=== PATIENT | male | born 1940 | race Caucasian/White ===

== ENCOUNTER → 2016-10-21 | Outpatient (CLI) | payer BC ==
[~2016-10-21] MED LIST: FINA5TAB PO; FISHOIL PO; LACTCHW3 PO; SULF800T23 PO; WARF5TAB90 PO
[2016-10-21 12:43] LABS: ESTIMATED AVERAGE GLUCOSE 111 mg/dl; HA1C FLAG Normal (Normal)
[2016-10-21 14:26] LABS: CHOLESTEROL/HDL RATIO 5.9
== END | disposition home or self-care (01) ==
LOC: C.LABPVFM 13:42
PROVIDERS: ATTEND Family Medicine
DX: E78.5 Hyperlipidemia, unspecified (principal); E78.1 Pure hyperglyceridemia; R73.01 Impaired fasting glucose; Z51.81 Encounter for therapeutic drug level monitoring; Z79.01 Long term (current) use of anticoagulants; Z86.718 Personal history of other venous thrombosis and embolism

== ENCOUNTER → 2016-11-11 | Outpatient (CLI) | payer BC ==
[2016-11-11 13:06] LABS: BLOOD UREA NITROGEN 17 mg/dl (7-18); GLUCOSE 128 mg/dl (70-99)
[2016-11-11 13:07] LABS: ALB/GLOB RATIO 1.1 (0.9-2); ALT/SGPT 39 U/L (12-78); AST/SGOT 27 U/L (15-37); BUN/CREATININE RATIO 16.6 (10-20); CALCIUM 9.3 mg/dl (8.5-10.1); CARBON DIOXIDE 28 mmol/L (21-32); CHLORIDE 106 mmol/L (98-107); MAGNESIUM 2.1 mg/dl (1.8-2.4); POTASSIUM 4.2 mmol/L (3.5-5.1); SODIUM 142 mmol/L (136-145)
[2016-11-11 13:08] LABS: ALKALINE PHOSPHATASE 57 U/L (45-117)
== END | disposition home or self-care (01) ==
LOC: C.LABPVFM 11:08
PROVIDERS: ATTEND Family Medicine
DX: R73.01 Impaired fasting glucose (principal); R25.2 Cramp and spasm; Z51.81 Encounter for therapeutic drug level monitoring; Z79.01 Long term (current) use of anticoagulants; Z86.718 Personal history of other venous thrombosis and embolism

== ENCOUNTER → 2017-04-29 | Outpatient (CLI) | payer BC ==
[2017-04-29 13:37] LABS: CHOLESTEROL/HDL RATIO 6.3
== END | disposition home or self-care (01) ==
LOC: C.LABPVFM 15:19
PROVIDERS: ATTEND Family Medicine
DX: E78.5 Hyperlipidemia, unspecified (principal); Z79.01 Long term (current) use of anticoagulants; R73.01 Impaired fasting glucose; R25.2 Cramp and spasm

== ENCOUNTER → 2017-08-18 | Outpatient (CLI) | payer BC | END | disposition home or self-care (01) | LOC: C.LABPVFM 11:36 | PROVIDERS: ATTEND Urology | DX: R97.20 Elevated prostate specific antigen [PSA] (principal) ==

== ENCOUNTER → 2017-09-29 | Outpatient (CLI) | payer BC | END | disposition home or self-care (01) | LOC: C.PATHSPEC 17:26 | PROVIDERS: ATTEND Physician Assistant | DX: L57.0 Actinic keratosis (principal) ==

== ENCOUNTER → 2017-10-27 | Outpatient (CLI) | payer BC ==
[2017-10-27 12:55] LABS: BLOOD UREA NITROGEN 22 mg/dl (7-18); CALCIUM 9.1 mg/dl (8.5-10.1); CARBON DIOXIDE 28 mmol/L (21-32); CHOLESTEROL 184 mg/dl (0-200); CREATININE 0.99 mg/dl (0.60-1.40); GLUCOSE 96 mg/dl (70-99); POTASSIUM 4.1 mmol/L (3.5-5.1); SODIUM 138 mmol/L (136-145)
[2017-10-27 12:58] LABS: LDL CHOLESTEROL CALCULATED 114 mg/dl
== END | disposition home or self-care (01) ==
LOC: C.LABPVFM 10:21
PROVIDERS: ATTEND Family Medicine
DX: E78.5 Hyperlipidemia, unspecified (principal); D12.6 Benign neoplasm of colon, unspecified; R25.2 Cramp and spasm; R73.01 Impaired fasting glucose

== ENCOUNTER → 2018-04-21 | Outpatient (CLI) | payer BC ==
[2018-04-20 13:43] LABS: ALBUMIN 3.6 gm/dl (3.4-5.0); ALKALINE PHOSPHATASE 71 U/L (45-117); ALT/SGPT 53 U/L (12-78); AST/SGOT 37 U/L (15-37); BLOOD UREA NITROGEN 17 mg/dl (7-18); CALCIUM 8.8 mg/dl (8.5-10.1); CARBON DIOXIDE 27 mmol/L (21-32); CHOLESTEROL 123 mg/dl (0-200); CREATININE 0.95 mg/dl (0.60-1.40); GLUCOSE 102 mg/dl (70-99); LDL CHOLESTEROL CALCULATED 57 mg/dl; POTASSIUM 4.4 mmol/L (3.5-5.1); SODIUM 139 mmol/L (136-145); TOTAL PROTEIN 7.6 gm/dl (6.4-8.2)
== END | disposition home or self-care (01) ==
LOC: C.LABPVFM 15:20
PROVIDERS: ATTEND Family Medicine
DX: Z51.81 Encounter for therapeutic drug level monitoring (principal); E78.6 Lipoprotein deficiency; I82.409 Acute embolism and thrombosis of unspecified deep veins of unspecified lower extremity; N40.1 Benign prostatic hyperplasia with lower urinary tract symptoms; Z85.828 Personal history of other malignant neoplasm of skin; Z79.01 Long term (current) use of anticoagulants

== ENCOUNTER 2020-09-05 12:26 | Observation (INO) ==
--- NOTE | 2020-09-05 13:04 | Emergency Department Note ---
Impression & Plan Chest pain, Abnormal ECG, correction current use of anticoagulant ED Provider Note NAME: HAIR MEAD AGE: 80 SEX: M : 1940 ARRIVES VIA: Ambulance INFORMANT: Patient ED PROVIDER(S): Marcial Martins DO CHIEF COMPLAINT: Chest pain HPI: Patient is an 80-year-old male who presents to the ER for chest pain. He has a history of blood clots on Coumadin. He presented to his PCPs office and had an EKG performed after he informed him that he had chest pain around 230 this morning. He described it as a heaviness/tightness in the middle of his chest. It lasted till about 730 to 8 AM. He had no shortness of breath or arm or jaw pain with it. He admits to a history of hyperlipidemia. He is a smoker. Denies any diabetes or any heart disease. No dysuria urgency or frequency. No other exacerbating or remitting factors. He has never had this pain before. They reviewed an EKG and sent him here for EKG changes with the chest pain. He was given aspirin prior to arrival. ROS: See above HPI for pertinent positives & negatives. A total of 10 systems reviewed and were otherwise negative. PAST MEDICAL HISTORY:See Below PAST SURGICAL HISTORY:See Below FAMILY HISTORY:See Below SOCIAL HISTORY:See Below HOME MEDICATIONS:See Below ALLERGIES:See Below VITALS:See Below PHYSICAL EXAMINATION: GENERAL: Sitting up in bed, alert, well appearing, well nourished, no distress, non-toxic EYE EXAM: normal conjunctiva. OROPHARYNX: no exudate, no erythema, lips, buccal mucosa, and tongue normal and mucous membranes are moist NECK: supple, no nuchal rigidity, no adenopathy, non-tender LUNGS: Clear to auscultation. Normal chest wall mechanics HEART: no murmurs, S1 normal and S2 normal ABDOMEN: abdomen soft, non-tender, normo-active bowel sounds, no masses, no rebound or guarding. UPPER EXTREMITIES: upper extremities are grossly normal. LOWER EXTREMITIES: No pitting edema. Calves are equal bilateral NEURO EXAM: Normal sensorium, cranial nerves II-XII grossly intact, normal speech, no gross weakness of arms, no gross weakness of legs. MEDICAL DECISION MAKING: Patient is an 80-year-old male who presents ER who had chest pain this morning and was following up with his PCP. They noticed changes on his EKG and sent him in for further evaluation. He has not had any pain since about 8 AM. IV was established blood work was obtained. Labs show no significant leukocytosis or anemia. INR was supratherapeutic at 3.4. BMP was unremarkable. LFTs and troponin were negative. T bili slightly elevated at 1.3. Lipase was unremarkable. Covid was negative. Chest x-ray was unremarkable. EKG did show new ST elevations in the inferior leads comparison to the old which had ST depressions. Old EKG was from 2009. Uncertain of the timeframe for which these occurred but with his symptoms and age I do feel it was prudent for further evaluation. He was given aspirin prior to arrival. Triage Nursing notes reviewed. Prior medical records reviewed Vital Signs: reviewed and remarkable for HTN Differential diagnosis: Differential diagnoses includes but is not limited to acute coronary syndrome, myocardial infarction, pericarditis, pulmonary embolus, aortic dissection, pneumonia, pneumothorax, musculoskeletal, shingles, esophageal. ER treatment provided: See below Diagnostics interpreted by me: ECG: Sinus rhythm rate [address] segment elevations in the inferior leads PVC present Nonspecific ST wave changes in the lateral leads When compared to EKG from [address] elevation is new Cardiac Monitoring: An order was placed for continuous cardiac monitoring. The monitor shows a rate of 84 with sinus rhythm. Laboratory studies: As stated above and show below. Imaging studies: Portable AP upright 1 view the chest shows no focal infiltrate or pneumothorax Consultation(s): Discussed with the hospitalist for further evaluation ED COURSE: Procedures: none Critical Care: None Past Med/Surg History Medical History Basal cell carcinoma Bladder stone Hypertension Pneumonia Surgical History S/P trigger finger release Family History Brother Prostate cancer Other Family history non-contributory Denies family history of Ovarian cancer Myocardial infarction Breast cancer Colorectal cancer Social History Smoking Status: Current every day smoker Hx Alcohol Use: No Hx Substance Use: No Preferred Language: Mongolian Hearing Ability: Normal marital status: Current Living Situation: Alone current occupational status: retired Feels Safe at Home: Yes caffeine: Yes Dental Care, Regularly: Yes Physical Activity Frequency: Does not Exercise Seatbelt Use: always Sunscreen Use: Yes Allergies Allergies Allergy/AdvReac Type Severity Reaction Status Date / Time No Known Drug Allergies Allergy Verified 09/05/20 14:15 Home Meds Home Medications Medication Instructions Recorded Confirmed omega 5-grh-atx-fish oil [Fish Oil] 2,000 mg PO QAM 12/21/18 09/05/20 finasteride 5 mg PO QAM 09/05/20 09/05/20 vamprfkg-laj-CY-lycopen-lutein 1 tab PO QAM 09/05/20 09/05/20 [Centrum Silver] warfarin 7.5 mg PO .SUMOWEFRSA@1730 09/05/20 09/05/20 warfarin 10 mg PO .TUTH@1730 09/05/20 09/05/20 Previous Rx's Medication Instructions Recorded gabapentin 100 mg capsule See Rx Instructions .ROUTE 01/04/20 .COMPLEX #180 capsule atorvastatin 10 mg tablet 10 mg PO HS #90 tab 07/11/20 Results & Data (ED) Vital Signs Vital Signs - 24 hr 09/05/20 12:33 09/05/20 15:32 Temperature 37.0 C Temperature Source Oral Pulse Rate 90 Pulse Rate [Apical] 84 Pulse Rhythm Regular Pulse Strength Normal Respiratory Rate 17 18 Respiratory Effort / Characteristics Non-Labored Respiratory Depth Normal Respiratory Pattern Regular Blood Pressure 157/89 H Blood Pressure [Left Arm] 140/72 Blood Pressure Mean 111 Blood Pressure Mean [Left Arm] 94 Blood Pressure Position Sitting Pulse Oximetry 94 95 Oxygen Delivery Method Room Air Room Air Sepsis Recent Fever Within 48 Hours No Sepsis New/Unexplained Change in Mental Status No Sepsis Action Taken by Nursing No Action Required Laboratory Data Result diagrams: 09/05/20 12:10 09/05/20 12:10 Lab Results 09/05/20 09/05/20 09/05/20 Range/Units 12:10 12:10 12:10 WBC 10.05 (4.8-10.8) K/uL RBC 5.11 (4.7-6.1) M/uL Hgb 16.7 (14.0-18.0) g/dL Hct 48.5 (42-52) % MCV 94.9 (80-100) fL MCH 32.7 (25-34) pg MCHC 34.4 (32-36) g/dL RDW Std Deviation 46.2 (36.4-46.3) fL RDW Coeff of Mu 13.3 (11.5-14.5) % Plt Count 204 (130-400) K/uL MPV 10.3 (7.4-10.4) fL Immature Gran % (Auto) 0.1 % Neut % (Auto) 73.2 % Lymph % (Auto) 13.9 % [place] % (Auto) 11.6 % Eos % (Auto) 0.9 % Baso % (Auto) 0.3 % Neut # (Auto) 7.35 H (1.4-6.5) K/uL Lymph # (Auto) 1.40 (1.2-3.4) K/uL [place] # (Auto) 1.17 H (0.11-0.59) K/uL Eos # (Auto) 0.09 (0-0.5) K/uL Baso # (Auto) 0.03 (0-0.2) K/uL Immature Gran # (Auto) 0.01 (0.00-0.02) K/uL PT 33.3 H (9.0-12.0) Seconds INR 3.4 H (0.9-1.1) APTT 42.2 H (21.0-31.0) Seconds PTT Ratio 1.5 Sodium 138 (136-145) mmol/L Potassium 4.1 (3.5-5.1) mmol/L Chloride 105 (98-107) mmol/L Carbon Dioxide 28 (21-32) mmol/L Anion Gap 4.0 (3-11) BUN 18 (7-18) mg/dl Creatinine 0.93 (0.6-1.4) mg/dl Est Cr Clr Drug Dosing 61.2 ml/min Est GFR ( Amer) 88.3 Est GFR (Non-Af Amer) 76.2 BUN/Creatinine Ratio 19.8 (10-20) Glucose 92 (70-99) mg/dl Calcium 9.7 (8.5-10.1) mg/dl Total Bilirubin 1.3 H (0.2-1) mg/dl AST 32 (15-37) U/L ALT 40 (12-78) U/L Alkaline Phosphatase 80 (45-117) U/L Troponin I < 0.015 (0-0.045) ng/ml Total Protein 7.8 (6.4-8.2) gm/dl Albumin 3.8 (3.4-5.0) gm/dl Globulin 4.0 (2.5-4.0) gm/dl Albumin/Globulin Ratio 0.9 (0.9-2) Lipase 94 (73-393) U/L SARS-CoV-2 Ag (Rapid) (Negative) 09/05/20 Range/Units 14:48 WBC (4.8-10.8) K/uL RBC (4.7-6.1) M/uL Hgb (14.0-18.0) g/dL Hct (42-52) % MCV (80-100) fL MCH (25-34) pg MCHC (32-36) g/dL RDW Std Deviation (36.4-46.3) fL RDW Coeff of Mu (11.5-14.5) % Plt Count (130-400) K/uL MPV (7.4-10.4) fL Immature Gran % (Auto) % Neut % (Auto) % Lymph % (Auto) % [place] % (Auto) % Eos % (Auto) % Baso % (Auto) % Neut # (Auto) (1.4-6.5) K/uL Lymph # (Auto) (1.2-3.4) K/uL [place] # (Auto) (0.11-0.59) K/uL Eos # (Auto) (0-0.5) K/uL Baso # (Auto) (0-0.2) K/uL Immature Gran # (Auto) (0.00-0.02) K/uL PT (9.0-12.0) Seconds INR (0.9-1.1) APTT (21.0-31.0) Seconds PTT Ratio Sodium (136-145) mmol/L Potassium (3.5-5.1) mmol/L Chloride (98-107) mmol/L Carbon Dioxide (21-32) mmol/L Anion Gap (3-11) BUN (7-18) mg/dl Creatinine (0.6-1.4) mg/dl Est Cr Clr Drug Dosing ml/min Est GFR ( Amer) Est GFR (Non-Af Amer) BUN/Creatinine Ratio (10-20) Glucose (70-99) mg/dl Calcium (8.5-10.1) mg/dl Total Bilirubin (0.2-1) mg/dl AST (15-37) U/L ALT (12-78) U/L Alkaline Phosphatase (45-117) U/L Troponin I (0-0.045) ng/ml Total Protein (6.4-8.2) gm/dl Albumin (3.4-5.0) gm/dl Globulin (2.5-4.0) gm/dl Albumin/Globulin Ratio (0.9-2) Lipase (73-393) U/L SARS-CoV-2 Ag (Rapid) Negative (Negative) Discharge Plan Visit Data Chief Complaint: Chest Pain ED Provider: Marcial Martins Discharge Problem: Chest pain, Abnormal ECG, correction current use of anticoagulant Patient Disposition: Admitted As Inpatient Discharge Instructions Interventions: ED Discharge Assessment Last Done: 09/05/20 16:32 Discharge Problem: Chest pain Qualifiers: Chest pain type: unspecified Qualified Code(s): R07.9 - Chest pain, unspecified
--- NOTE | 2020-09-05 13:08 | XRay Report ---
XR chest 1V portable CLINICAL HISTORY: Atypical chest pain COMPARISON STUDY: October 2019 FINDINGS: The heart is normal in size. There is no failure. There is no acute parenchymal consolidati on. There is a 9 mm right upper lung zone nodule versus rib summation. A short-term follow-up PA and lateral study is recommended. There is mild chronic blunting of the left lateral costophrenic angle IMPRESSION: 1. No evidence of acute parenchymal consolidation 2. 9 mm right upper lung zone nodule versus rib summation. A short-term follow-up PA and lateral stud y is recommended. ACT 112: Negative or not required by law. Electronically signed by: Yfn Lewis M.D. 09/05/2020 1:07 PM
[2020-09-05 13:17] LABS: Basophils # (auto) 0.03 K/uL (0-0.2); Basophils % (auto) 0.3 %; Eosinophils # (auto) 0.09 K/uL (0-0.5); Eosinophils % (auto) 0.9 %; Hematocrit (blood only) 48.5 % (42-52); Hemoglobin 16.7 g/dL (14.0-18.0); Immature Granulocytes # (auto) 0.01 K/uL (0.00-0.02); Immature Granulocytes % (auto) 0.1 %; Lymphocytes % (auto) 13.9 %; Mean Corpuscular Hemoglobin 32.7 pg (25-34); Mean Corpuscular Hgb Conc 34.4 g/dL (32-36); Mean Corpuscular Volume 94.9 fL (80-100); Mean Platelet Volume 10.3 fL (7.4-10.4); Monocytes # (auto) 1.17 K/uL (0.11-0.59); Monocytes % (auto) 11.6 %; Neutrophils # (auto) 7.35 K/uL (1.4-6.5); Neutrophils % (auto) 73.2 %; Platelet Count 204 K/uL (130-400); RDW Coefficient of Variation 13.3 % (11.5-14.5); RDW Standard Deviation 46.2 fL (36.4-46.3); Red Blood Count 5.11 M/uL (4.7-6.1); White Blood Count 10.05 K/uL (4.8-10.8)
[2020-09-05 13:25] LABS: Alanine Aminotransferase 40 U/L (12-78); Albumin Level 3.8 gm/dl (3.4-5.0); Aspartate Aminotransferase 32 U/L (15-37); BUN Creatinine Ratio 19.8 (10-20); Blood Urea Nitrogen 18 mg/dl (7-18); Calcium 9.7 mg/dl (8.5-10.1); Carbon Dioxide 28 mmol/L (21-32); Chloride 105 mmol/L (98-107); Creatinine Clr Calc Pharmacy 61.2 ml/min; Est GFR (African American) 88.3; Est GFR (Non-African American) 76.2; Glucose 92 mg/dl (70-99); Lipase 94 U/L (73-393); Potassium 4.1 mmol/L (3.5-5.1); Sodium 138 mmol/L (136-145)
[2020-09-05 13:30] LABS: Albumin Globulin Ratio 0.9 (0.9-2); Alkaline Phosphatase 80 U/L (45-117); Bilirubin,Total 1.3 mg/dl (0.2-1); Total Protein 7.8 gm/dl (6.4-8.2); Troponin I < 0.015 ng/ml (0-0.045)
[2020-09-05 13:40] LABS: INR 3.4 (0.9-1.1); Partial Thromboplastin Ratio 1.5; Partial Thromboplastin Time 42.2 Seconds (21.0-31.0); Prothrombin Time 33.3 Seconds (9.0-12.0)
--- NOTE | 2020-09-05 15:25 | History & Physical Report ---
Date of Service September 05, 2020 Assessment & Plan (1) Chest pain at rest: - Patient with chest pain at rest that is now resolved. EKG changes are more AR depression rather than ST elevation. This is possibly seen in pericarditis, though he does not have the clinical history for that. - Dobutamine stress in the AM. 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 Patient comes to the hospital today after being awoken at 0230 with chest pain that was located in the center of his chest and felt like a tightness. The pain decreased enough for him to go back to sleep and then woke him up again at 0530. The pain was again located in the center of his chest and described as a tightness. The pain was about a 4-5/10 and was not associated with any other symptoms. He took 2 Tums and the pain went away by 0730. The patient went to primary care at [facility] and for concern of [place] the patient was sent to [facility]. The patient remains pain free at the time of being evaluated in the EMD. In the EMD the patient had a CXR done (see results below), ECG x1, troponin x1 (<0.015), and COVID swab (negative). Pt has never experienced this before, denies ever needing to follow with cardiology previously. Allergies Allergy/AdvReac Type Severity Reaction Status Date / Time No Known Drug Allergies Allergy Verified 09/05/20 14:15 Home Medications Medication Instructions Recorded Confirmed Type omega 9-kfl-xny-fish oil [Fish Oil] 2,000 mg PO QAM 12/21/18 09/05/20 History gabapentin 100 mg capsule See Rx Instructions .ROUTE 01/04/20 09/05/20 Rx .COMPLEX #180 capsule atorvastatin 10 mg tablet 10 mg PO HS #90 tab 07/11/20 09/05/20 Rx finasteride 5 mg PO QAM 09/05/20 09/05/20 History dybmipiy-afo-EF-lycopen-lutein 1 tab PO QAM 09/05/20 09/05/20 History [Centrum Silver] warfarin 7.5 mg PO .SUMOWEFRSA@1730 09/05/20 09/05/20 History warfarin 10 mg PO .TUTH@1730 09/05/20 09/05/20 History Past Med/Surg History Medical History Basal cell carcinoma Bladder stone Hypertension Pneumonia Surgical History S/P trigger finger release Family History Brother Prostate cancer Other Family history non-contributory Denies family history of Ovarian cancer Myocardial infarction Breast cancer Colorectal cancer Social History Smoking Status: Current every day smoker Hx Alcohol Use: No Hx Substance Use: No Preferred Language: Zambian Hearing Ability: Normal marital status: Current Living Situation: Alone current occupational status: retired Feels Safe at Home: Yes caffeine: Yes Dental Care, Regularly: Yes Physical Activity Frequency: Does not Exercise Seatbelt Use: always Sunscreen Use: Yes Review of Systems Review of Systems: Constitutional: No fever, sweats or chills Eyes: + wears glasses, No diplopia, no worsening or blurred vision ENT: normal hearing, no trouble swallowing, no sore throat Respiratory: + smoker, cough, thick white sputum, no dyspnea at rest or on exertion Cardiovascular: + chest pain, tightness, no palpitations, leg swelling Abdomen: No pain, nausea, vomiting, diarrhea or constipation Musculoskeletal: No joint pain, calf pain, swelling Neurologic: No weakness, numbness/tingling, or balance problems Psychiatric: No anxiety or depression Skin: No rash or itch Physical Exam Physical Exam: General: awake, alert, no apparent distress Head: Normocephalic, atraumatic ENT: PERRL, EOMI, no pharyngeal exudate, mucous membranes moist Chest: On room air, decreased in bases with expiratory wheeze bilateral. Cardiac: S1/S2, regular rate and rhythm, no murmur, no JVD, normal peripheral pulses, good capillary refill Abdominal: NABS x 4 quadrants, soft, nondistended, nontender to palpation, no rebound or guarding Extremities: Normal inspection, no peripheral edema or erythema, calfs nontender to palpation Psych: Normal mood and affect Neuro: AAO x 3, strength intact bilaterally and rated 5/5, no motor deficits, speech is clear, no peripheral sensory deficits Results & Data Results & Data ([facility]) Vital Signs (Past 12 Hours) Vital Signs Temp Pulse Resp BP Pulse Ox 09/05/20 12:33 37.0 C 90 17 157/89 H 94 ECG: NSR with PVC, AR depressions diffusely. CXR: FINDINGS: The heart is normal in size. There is no failure. There is no acute parenchymal consolidation. There is a 9 mm right upper lung zone nodule versus rib summation. A short-term follow-up PA and lateral study is recommended. There is mild chronic blunting of the left lateral costophrenic angle IMPRESSION: 1. No evidence of acute parenchymal consolidation 2. 9 mm right upper lung zone nodule versus rib summation. A short-term follow- up PA and lateral study is recommended. Code Status & VTE Plan VTE Prophylaxis Plan VTE Prophylaxis will be ordered: Yes Supervising Physician Co-Signing Physician Notes I supervised Demi Post PA-C on this patient's care. I examined the patient today independently of her. I discussed the plan of care with her with the plan being as written in her note except for any following changes/exceptions: None. PG Care Time/CCT Total # of Minutes Spent Total Time Spent with Patient: Total time spent is greater than 50% in coordination of care (as documented) at patient's floor/unit and/or counseling patient: Coding Level of Care Code 56805 OBS Care - Level 3 Diagnoses Chest pain at rest R07.9 BPH w/o urinary obs/LUTS N40.0 Bilateral leg cramps R25.2 Hyperlipidemia E78.5 DVT (deep venous thrombosis) I82.409
[2020-09-05] MEDS ORDERED: ONDANSETRON INJ 2 MG/ML 2 ML VIAL IV PRN (16:53)
[2020-09-05] MEDS ORDERED: ACETAMINOPHEN 325 MG TAB PO PRN (16:53)
[2020-09-05] MEDS ORDERED: ATORVASTATIN 10 MG TAB PO SCH (21:00)
[2020-09-05] MEDS ORDERED: GABAPENTIN 100 MG CAP PO SCH (21:00)
[2020-09-05 23:25] VITALS: O2SAT 92
[2020-09-06 04:40] LABS: Hematocrit (blood only) 43.5 % (42-52); Hemoglobin 15.1 g/dL (14.0-18.0); Mean Corpuscular Hemoglobin 32.6 pg (25-34); Mean Corpuscular Hgb Conc 34.7 g/dL (32-36); Mean Platelet Volume 9.7 fL (7.4-10.4); Platelet Count 178 K/uL (130-400); RDW Coefficient of Variation 13.3 % (11.5-14.5); RDW Standard Deviation 45.4 fL (36.4-46.3); Red Blood Count 4.63 M/uL (4.7-6.1); White Blood Count 5.19 K/uL (4.8-10.8)
[2020-09-06 04:59] LABS: Alanine Aminotransferase 31 U/L (12-78); Aspartate Aminotransferase 24 U/L (15-37); BUN Creatinine Ratio 18.4 (10-20); Blood Urea Nitrogen 14 mg/dl (7-18); Calcium 8.7 mg/dl (8.5-10.1); Carbon Dioxide 29 mmol/L (21-32); Chloride 107 mmol/L (98-107); Creatinine Clr Calc Pharmacy 75.4 ml/min; Est GFR (African American) 97.4; Est GFR (Non-African American) 84.1; Glucose 104 mg/dl (70-99); Magnesium 2.1 mg/dl (1.8-2.4); Potassium 3.9 mmol/L (3.5-5.1); Sodium 139 mmol/L (136-145)
[2020-09-06 05:03] LABS: Albumin Globulin Ratio 0.8 (0.9-2); Alkaline Phosphatase 68 U/L (45-117); Bilirubin,Total 1.2 mg/dl (0.2-1); Globulin 3.6 gm/dl (2.5-4.0); Total Protein 6.6 gm/dl (6.4-8.2); Troponin I < 0.015 ng/ml (0-0.045)
--- NOTE | 2020-09-06 05:54 | Electrocardiogram Report ---
Test Reason : Blood Pressure : / mmHG Vent. Rate : 088 BPM Atrial Rate : 088 BPM P-R Int : 154 ms QRS Dur : 082 ms QT Int : 332 ms P-R-T Axes : 080 056 064 degrees QTc Int : 401 ms Sinus rhythm with occasional Premature ventricular complexes Otherwise normal ECG When compared with ECG of 05-MAY-2012 00:26, Premature ventricular complexes are now Present Confirmed by Van Sen ([id number]) on 09/06/2020 5:54:01 AM Referred By: Confirmed By:Van Sen
[2020-09-06] MEDS ORDERED: METOPROLOL TARTRATE 1 MG/ML VIAL IV ONE (08:29)
[2020-09-06] MEDS ORDERED: ATROPINE SULFATE 0.1 MG/ML 10ML SYR IV ONE (08:29)
[2020-09-06] MEDS ORDERED: DOBUTamine HCL 12.5 MG/ML 20 ML VIAL IV ONE (08:29)
[2020-09-06] MEDS ORDERED: CEROVITE ADV FORMULA TAB PO SCH (09:00)
[2020-09-06] MEDS ORDERED: OMEGA-3 (PURIFIED FISH OIL) 1 GM CAP PO SCH (09:00)
[2020-09-06] MEDS ORDERED: ENOXAPARIN INJ 40 MG/0.4 ML SYR SQ SCH (09:00)
[2020-09-06] MEDS ORDERED: FINASTERIDE 5 MG TAB PO SCH (09:00)
--- NOTE | 2020-09-06 11:03 | XCELERA ---
[id number]
[2020-09-06 11:05] VITALS: BP 128/78; PULSE 79; TEMP 97.3
--- NOTE | 2020-09-06 21:17 | Discharge Summary ---
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 Patient comes to the hospital today after being awoken at 0230 with chest pain that was located in the center of his chest and felt like a tightness. The pain decreased enough for him to go back to sleep and then woke him up again at 0530. The pain was again located in the center of his chest and described as a tightness. The pain was about a 4-5/10 and was not associated with any other symptoms. He took 2 Tums and the pain went away by 0730. The patient went to primary care at [facility] and for concern of [place] the patient was sent to [facility]. The patient remains pain free at the time of being evaluated in the EMD. In the EMD the patient had a CXR done (see results below), ECG x1, troponin x1 (<0.015), and COVID swab (negative). Pt has never experienced this before, denies ever needing to follow with cardiology previously. Principal Diagnosis Chest pain - Not an NSTEMI, unlikely to be cardiac in nature Discharge Exam Constitutional WD/WN, vitals as above Eyes EOM intact bilaterally; no conjunctival abnormality ENMT external ear and nose normal, oropharynx normal Neck trachea midline, no thyromegaly normal visual inspection Respiratory normal respiratory effort, lungs clear to auscultation no respiratory distress Cardiovascular RRR, no murmur, no edema Gastrointestinal (Abdomen) Inspection/Auscultation: abdomen normal to inspection; abdomen not distended Musculoskeletal no cyanosis or clubbing, extremities motor strength 5/5 Skin no rashes, warm and dry Neurologic moves all extremities and awake Psychiatric Orientation: alert, oriented to person and cooperative Discharge Data Allergies Allergy/AdvReac Type Severity Reaction Status Date / Time No Known Drug Allergies Allergy Verified 09/05/20 14:15 Consultations 09/05/20 14:17 ED Decision to Admit Stat 09/05/20 16:53 Consult Case Management - Discharge Planning Routine Hospital Course (1) Chest pain at rest: - Patient with chest pain at rest that is now resolved. EKG changes are more TN depression rather than ST elevation. This is possibly seen in pericarditis, though he does not have the clinical history for that. - Dobutamine stress in the AM did not show any ischemia, but the patient did not reach his target heart rate. Technically non-diagnostic, but he had no chest pain with the exertion, so this is encouraging. - He also was found to have moderate-severe aortic stenosis. This was discussed with him and will require follow-up echo in 6-12 months. 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 = Follow up with outpatient INR provider Total Time Total Time Spent Total Time Spent (In Minutes): 35 Discharge Plan Discharge Items Patient Disposition: Home - Self-Care Reason For Visit: CHEST PAIN Discharge Diagnosis: Chest pain - Not a heart attack. Activity: Resume your previous activity Non-emergency contact: Primary Care Provider Call non-emergency contact if: your symptoms worsen Follow-up/Referrals: Supriya Diego CRNP [Primary Care Provider] - 09/11/20 11:00 am Diet: Heart Healthy Addtl Attending Provider Instructions: You were admitted to the hospital with chest pain. Fortunately, you did NOT have a heart attack because your cardiac enzymes were normal. We did a stress test which did not show any ischemia, but also didn't quite reach your target heart rate. If you have further chest pain, try to take Tums or Zantac to see if this may be heart burn related. Also, you have moderate aortic stenosis. This requires no treatment at present, but will require another ultrasound of your heart in 6 months to a year to monitor. If it gets severe, we worry about you passing out when you exert yourself. Your INR was a bit high here (3.4), so we held your warfarin. Please return to your normal dosing on discharge and follow up with your PCP or the provider who follows your warfarin. If you have chest pain that continues or is associated with dizziness, lightheadedness, shortness of breath, palpitations, or other concerning sympto ms, please call your doctor or seek immediate medical assistance. Pending Studies at Discharge: No Stand-Alone Forms: My [facility] [place], Smoking Cessation Medications and DC Order Prescriptions: Continued gabapentin 100 mg capsule See Rx Instructions .ROUTE .COMPLEX Qty: 180 RF: 1 atorvastatin 10 mg tablet 10 mg PO HS Qty: 90 RF: 3 omega 5-rqq-wen-fish oil [Fish Oil] 1,000 mg (120 mg-180 mg) Capsule 2,000 mg PO QAM RF: 0 warfarin 5 mg tablet 7.5 mg PO .SUMOWEFRSA@1730 RF: 0 warfarin 5 mg tablet 10 mg PO .TUTH@1730 RF: 0 finasteride 5 mg tablet 5 mg PO QAM RF: 0 Centrum Silver 0.4-300-250 mg-mcg-mcg tablet 1 tab PO QAM RF: 0 Discharge Orders: Discharge Order (Routine); Ordered 09/06/20 Ordered By: Gamal Call Admission Data Admit Date/Time: 09/05/20 15:36 Attending Provider: Gamla Call Admit Provider: Gamal Call Primary Care Provider: Supriya Diego Other Providers: Gamal Call Other Interventions: Discharge Summary Assessment (RN) Last Done: 09/06/20 11:03 Coding Level of Care Code 13502 OBS Care - Discharge Diagnoses Chest pain at rest R07.9 BPH w/o urinary obs/LUTS N40.0 Bilateral leg cramps R25.2 Hyperlipidemia E78.5 DVT (deep venous thrombosis) I82.409
== END 2020-09-06 12:03 | disposition home or self-care (01) ==
LOC: ED 12:26 → 2S 12:26

== ENCOUNTER 2023-11-18 07:26 | Inpatient (IN) ==
--- NOTE | 2023-11-18 07:59 | Emergency Department Note ---
Impression & Plan Fall, Sciatica, Lower back pain, Compression fracture of lumbar vertebra, Failure of outpatient treatment ED Provider Note NAME: HAIR MEAD AGE: 83 SEX: M : 1940 ARRIVES VIA: Ambulance INFORMANT: [Patient][ems, nursing] ED PROVIDER(S): [Anthony Boucher MD] CHIEF COMPLAINT: Fall, back pain HISTORY OF PRESENT ILLNESS: The patient is an 83-year-old male who has been to the ED a few times recently for lower back pain. The patient was seen 5 days ago and diagnosed with an L4 lumbar compression fracture. The patient was seen 2 days ago for increasing pain and discomfort. The patient has seen spinal surgery in the outpatient office, he was fitted for a brace but did not think it helped. He has reconsidered though and was to pick a brace up today. He has an MRI scheduled for tomorrow. The patient states that he had gone to the chiropractor after having some lower back pain. A day or so after the manipulation, his pain worsened and he felt pain down his right leg. The patient states that his legs are weak. Today, his knees gave out and he slowly went to the ground. He could not get up on his own. He did not suffer any injury. In route to the hospital, he received IV morphine and IV Zofran. His O2 saturation was noted to be low upon arrival and he was placed on some nasal cannula oxygen. The patient does note some shortness of breath at times with exertion. He does have medication for his lungs that he uses at home. He does not wear oxygen. There have been no urinary complaints. His legs are in general weak as noted above but he has not noticed any difficulty with urination or numbness in the groin. There has been no fever. PMHx/PSHx/Social Hx: See Below PHYSICAL EXAM: GENERAL: Patient is in no acute distress. HEENT: No acute trauma, normocephalic atraumatic, mucous membranes moist, no nasal congestion. NECK: No stridor, no adenopathy, no meningismus, trachea is midline. LUNGS: Diminished breath sounds bilaterally with some scattered wheezes, no respiratory distress. HEART: 2/6 systolic murmur, regular rate and rhythm. ABDOMEN: Soft, nontender, no peritonitis. EXTREMITIES: No cyanosis, full range of motion of all the joints without pain or difficulty. There is some mild bilateral pedal edema with some chronic skin change. NEUROLOGIC: Oriented x 3, does move all extremities without difficulty. SKIN: No jaundice, no diaphoresis. Back: Tender to the lower lumbar spine midline, no step-off. DIFFERENTIAL DIAGNOSIS: Sciatica, lumbar fracture, herniated lumbar disc, spinal stenosis, hematoma, UTI, failed outpatient management, among others. EMERGENCY DEPARTMENT PROCEDURES: MEDICAL DECISION MAKING: There is a moderate leukocytosis, this could be consistent with infection or just his pain/stress. There was a normal hemoglobin and platelet count. INR was quite high at 5.3, he is over anticoagulated. Sodium somewhat low at 132. No renal failure. Some very subtle liver enzyme elevations were noted. ECG shows a sinus rhythm, no ischemia. Cardiac enzyme testing x 1 is not consistent with acute cardiac injury. Urinalysis shows some potential dehydration, no infection. Chest x-ray shows COPD, no pneumonia. Brain CT showed no acute bleed or mass effect. On exam, the patient was quite uncomfortable complaining of lower back pain and pain radiating down his right leg. This is the patient's third visit in just under a week. He already has seen outpatient spinal surgery. The patient fell today because of weakness. He is not doing well outpatient and will require a hospital stay. He requires IV hydration, pain control, MR imaging and a spinal surgical consult. I spoke with the patient and family, the on-call hospitalist was consulted. Case management has been involved. Patient received IV morphine for pain. He was given IV Tylenol and IV Toradol. He was given IV Zofran. He received a 500 cc saline bolus. Patient was given a DuoNeb. Prior/Outside records/notes reviewed: Today's EMS notes describing his presentation and transport to this hospital. ECG per my interpretation: Indication was fall and weakness. The ECG shows a normal sinus rhythm with a rate of 87. 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 There is no acute ST elevation, no PVCs. There is some baseline artifact. The QTc is 440. Continuous Cardiac Monitoring per my interpretation: An order was placed for continuous cardiac monitoring. The monitor shows a rate of 87 with normal sinus rhythm. Imaging/x-ray results per my interpretation: Chest x-ray does not show pneumonia or CHF. Some COPD findings were seen. Chronic Medical/Social conditions affecting care: Advanced age, chronic anticoagulation. Care/Management discussed with: Case management, the on-call hospitalist. Level of care consideration(s): After review of the information above and other included data: --I believe the patient requires escalation of care to admission DISPOSITION: Admission with spinal consult. Past Med/Surg History Medical History BPH (benign prostatic hyperplasia) Aortic stenosis, moderate pt unaware History of kidney stones COPD (chronic obstructive pulmonary disease) pt unaware Gangrenous cholecystitis Cholelithiasis and cholecystitis without obstruction H/O deep venous thrombosis over 10 yrs ago> Warfarin > unknown cause Abdominal pain resolved per pt Chest pain at rest Pneumonia resolved Hypertension Bladder stone Surgical History History of colonoscopy History of tooth extraction S/P laparoscopic cholecystectomy 11/24/20 Dr. Carlos A Jacobo- Acute cholecystitis with gangrene gallbladder S/P trigger finger release bilat hands multiple times Basal cell carcinoma with removal from forehead/back Family History Brother Prostate cancer Other Family history non-contributory Denies family history of Ovarian cancer Myocardial infarction Breast cancer Colorectal cancer Social History Smoking Status: Current every day smoker Tobacco Type: Cigarettes Cigarettes Per Day: on occasion; Second Hand Exposure: No; Do You Dip or Chew Tobacco: No; Hx Alcohol Use: Yes Alcohol type: beer Alcohol Intake Frequency: Monthly or Less Hx Substance Use: No Preferred Language: Bulgarian Communication Ability: Effective Visual Impairment: No Limitations Hearing Ability: Normal Sugar Boiler Required: No Beliefs That Will Affect Care: None marital status: Current Living Situation: Alone current occupational status: retired How many Children do You have: 3 Other Information That Helps Us Care for You: No Feels Safe at Home: Yes Safety Concerns: Feels Safe At This Time Childhood Exposure to Second-Hand Smoke: Yes Diet: regular caffeine: Yes during the past year weight has: remained stable Dental Care, Regularly: Yes Physical Activity Frequency: Daily Seatbelt Use: always Sunscreen Use: Yes Do you think of yourself as: straight/heterosexual Gender Identity: Male Assistive Devices: Glasses and Walker Allergies Allergies Allergy/AdvReac Type Severity Reaction Status Date / Time No Known Allergies Allergy Verified 11/18/23 10:13 Home Meds Home Medications Medication Instructions Recorded Confirmed omega 2-yem-wqy-fish oil 1,000 mg 0 mg PO QAM 12/21/18 11/18/23 (120 mg-180 mg) capsule (Fish Oil) ilbtuuut-qnd-ahawv acid 0.4 0 tab PO QAM 09/05/20 11/18/23 mg-lycopene 300 mcg-lutein 250 mcg tablet (Centrum Silver) glucosamine 750 le-qcccbssnskh-tis 0 tab PO DAILY 10/24/23 11/18/23 no1 644 mg-C 30 mg-ana 1 mg tablet (Osteo Bi-Flex Triple Strength) tramadol 50 mg tablet 50 mg PO DIRECTED PRN Pain 11/16/23 11/18/23 Previous Rx's Medication Instructions Recorded atorvastatin 10 mg tablet 10 mg PO HS #90 tabs 12/23/22 warfarin 5 mg tablet See Rx Instructions .Route 12/23/22 .COMPLEX #180 tabs fluticasone fur. 100 mcg-umeclid 1 inh inhalation DAILY #60 ea 01/21/23 62.5 mcg-vilant 25 mcg inhalat.powder (Trelegy Ellipta) finasteride 5 mg tablet 5 mg PO DAILY #90 tabs 10/03/23 triamcinolone acetonide 0.5 % 1 applic topical DAILY #15 grams 10/24/23 topical cream Results & Data (ED) Vital Signs Vital Signs - 24 hr 11/18/23 07:36 11/18/23 08:04 11/18/23 09:07 Temperature 37.0 C Temperature Source Axillary Pulse Rate 87 91 H Pulse Rate [Right Finger] 75 Respiratory Rate 20 18 Respiratory Effort / Characteristics Non-Labored Spontaneous Respiratory Depth Normal Blood Pressure 135/64 Blood Pressure [Right Arm] 95/42 L Blood Pressure Mean 87 Blood Pressure Mean [Right Arm] 59 Pulse Oximetry 91 97 Oxygen Delivery Method Nasal Cannula Nasal Cannula Oxygen Flow Rate 3 3 Sepsis Recent Fever Within 48 Hours No Sepsis New/Unexplained Change in Mental Status N/A Sepsis Action Taken by Nursing No Action Required 11/18/23 10:30 Temperature Temperature Source Pulse Rate Pulse Rate [Right Finger] 67 Respiratory Rate 20 Respiratory Effort / Characteristics Respiratory Depth Blood Pressure Blood Pressure [Right Arm] 137/98 Blood Pressure Mean Blood Pressure Mean [Right Arm] 111 Pulse Oximetry 93 Oxygen Delivery Method Nasal Cannula Oxygen Flow Rate 3 Sepsis Recent Fever Within 48 Hours Sepsis New/Unexplained Change in Mental Status Sepsis Action Taken by Halfway Medications Current Medication List: was personally reviewed by me Laboratory Data Attestation: I reviewed the patient's lab results. 11/18/23 08:30 11/18/23 08:30 Lab Results 11/18/23 Range/Units 08:30 WBC 14.02 H (4.8-10.8) K/ul RBC 5.08 (4.70-6.10) M/uL Hgb 16.2 (14.0-18.0) g/dl Hct 46.0 (42.0-52.0) % MCV 90.6 (80.0-100.0) fL MCH 31.9 (25.0-34.0) pg MCHC 35.2 (32.0-36.0) g/dL RDW Std Deviation 44.2 (36.4-46.3) fL RDW Coeff of Mu 13.2 (11.5-14.5) % Plt Count 249 (130-400) K/uL MPV 9.4 (9.4-12.4) fL Immature Gran % (Auto) 0.6 % Neut % (Auto) 80.2 % Lymph % (Auto) 8.9 % Sabine % (Auto) 9.3 % Eos % (Auto) 0.7 % Baso % (Auto) 0.3 % Neut # (Auto) 11.25 H (1.40-6.50) K/uL Lymph # (Auto) 1.25 (1.20-3.40) K/uL Sabine # (Auto) 1.30 H (0.11-0.59) K/uL Eos # (Auto) 0.10 (0.00-0.50) K/uL Baso # (Auto) 0.04 (0.00-0.20) K/uL Immature Gran # (Auto) 0.08 (0.01-0.20) K/uL PT 51.8 H (9.0-12.0) Seconds INR 5.3 H (0.9-1.1) APTT 42 H (21-31) Seconds PTT Ratio 1.5 Sodium 132 L (136-145) mmol/L Potassium 3.9 (3.5-5.1) mmol/L Chloride 100 (98-107) mmol/L Carbon Dioxide 27 (21-32) mmol/L Anion Gap 5 (3-11) BUN 30 H (6-23) mg/dl Creatinine 0.68 (0.6-1.4) mg/dl Est Cr Clr Drug Dosing 88.2 ml/min Est GFR ( Amer) 100.9 ml/min Est GFR (Non-Af Amer) 87.1 ml/min BUN/Creatinine Ratio 44.1 H (10-20) Glucose 121 H (70-99(Fasting)) mg/dl Calcium 9.2 (8.6-10.3) mg/dl Magnesium 1.8 (1.7-2.4) mg/dl Total Bilirubin 1.1 H (0.2-1.0) mg/dl AST 55 H (13-39) U/L ALT 38 (7-52) U/L Alkaline Phosphatase 84 (34-104) U/L Troponin I High Sens 18.4 (0-20) pg/ml Total Protein 6.7 (6.0-8.3) gm/dl Albumin 3.8 (3.4-5.0) gm/dl Globulin 2.9 (2.5-4.0) gm/dl Albumin/Globulin Ratio 1.3 (0.9-2) Administered Medications Finasteride (Finasteride 5 Mg Tab) 5 mg PO DAILY [facility] Stop: 12/18/23 13:12 Last Admin: 11/18/23 15:02 Dose: Not Given Documented By: RUFINO Lidocaine (Lidocaine 5% 1 Patch) 1 patch TD QAM [facility] Stop: 12/18/23 11:29 Last Admin: 11/18/23 12:08 Dose: 1 patch Documented By: LYNDA Oxycodone HCl (Oxycodone Hcl Ir 5 Mg Tab (Immediate Release)) 10 mg PO Q6H PRN PRN Reason: Severe Pain (7,8,9,10) on NRS Stop: 12/02/23 13:12 Last Admin: 11/18/23 13:30 Dose: 10 mg Documented By: RUFINO Discontinued Medications Albuterol (Albut/Ipratrop 3mg/0.5mg Neb 3 Ml Vial) 3 ml NEB NOW STA; Protocol Stop: 11/18/23 07:52 Last Admin: 11/18/23 08:00 Dose: 3 ml Documented By: FRAN Gabapentin (Gabapentin 100 Mg Cap) 100 mg PO NOW STA Stop: 11/18/23 11:16 Last Admin: 11/18/23 12:23 Dose: 100 mg Documented By: LYNDA Acetaminophen (Ofirmev) 1,000 mg in 100 mls @ 400 mls/hr IV NOW STA Stop: 11/18/23 08:41 Last Infusion: 11/18/23 08:52 Dose: Infused Documented By: Admin: 11/18/23 08:30 Dose: 400 mls/hr Documented By: FRAN Sodium Chloride (Nss) 500 mls @ 999 mls/hr IV .Q31M ONE Stop: 11/18/23 09:42 Last Infusion: 11/18/23 10:25 Dose: Infused Documented By: Admin: 11/18/23 09:45 Dose: 999 mls/hr Documented By: FRAN Ketorolac Tromethamine (Ketorolac Tromethamine 15 Mg/Ml Vial) 10 mg IV NOW ONE Stop: 11/18/23 08:28 Last Admin: 11/18/23 08:54 Dose: 10 mg Documented By: FRAN Morphine Sulfate (Morphine Sulfate 10 Mg/Ml Carp/Vial) Confirm Administered Dose 10 mg .ROUTE .STK-MED ONE Stop: 11/18/23 07:33 Last Admin: 11/18/23 12:09 Dose: Not Given Documented By: LYNDA Morphine Sulfate (Morphine Sulfate 4 Mg/Ml 1 Ml Carp\Vial) 4 mg IV NOW STA Stop: 11/18/23 08:28 Last Admin: 11/18/23 08:54 Dose: 4 mg Documented By: FRAN Morphine Sulfate (Morphine Sulfate 2 Mg/Ml Carp) 2 mg IV NOW STA Stop: 11/18/23 11:13 Last Admin: 11/18/23 12:05 Dose: 2 mg Documented By: LYNDA Ondansetron HCl (Ondansetron Inj 2 Mg/Ml 2 Ml Vial) Confirm Administered Dose 4 mg .ROUTE .STK-MED ONE Stop: 11/18/23 07:32 Last Admin: 11/18/23 12:09 Dose: Not Given Documented By: LYNDA Imaging Data Radiologist's Impression: Head CT 11/18/23 07:51 CT OF THE HEAD WITHOUT CONTRAST CLINICAL HISTORY: fall, warfarin COMPARISON STUDY: No previous studies for comparison. CT DOSE: 625.8 mGy.cm TECHNIQUE: Helical axial images of the head were obtained without IV contrast. Automated exposure control was utilized for the study. A dose lowering technique was utilized adhering to the principles of ALARA. FINDINGS: No acute intracranial hemorrhage, midline shift or mass effect is present. The ventricular system is unremarkable. The basal cisterns are patent. No extra-axial collections are present. There are no findings to suggest acute dural sinus thrombosis or acute territorial infarct. White matter hypodensity suggests small vessel disease. There is no calvarial fracture. A small mucous retention cyst within the left maxillary sinus. IMPRESSION: 1. No acute intracranial findings. 2. No calvarial fracture. ACT 112: Negative or not required by law. Electronically signed by: Mariusz Araujo M.D. 11/18/2023 8:16 AM Chest X-Ray 11/18/23 08:00 XR chest 1V portable CLINICAL HISTORY: hypoxia TECHNIQUE: Single frontal radiograph of the chest was obtained. Comparison: Comparison is made to rib series 07/15/2023 FINDINGS: No lines and tubes are seen. Cardiomegaly is noted. The aortic arch is calcified. The lungs are clear. No evidence of pleural effusion or pneumothorax. IMPRESSION: No acute chest disease. Cardiomegaly is noted. ACT 112: Negative or not required by law. Electronically signed by: Vinay Branch M.D. 11/18/2023 9:39 AM Discharge Plan Visit Data Chief Complaint: Fall ED Provider: Anthony Boucher Discharge Problem: Fall, Sciatica, Lower back pain, Compression fracture of lumbar vertebra, Failure of outpatient treatment Patient Disposition: Admitted As Inpatient Condition: Fair Discharge Instructions Interventions: ED Discharge Assessment Last Done: 11/18/23 12:39 Discharge Problem: Fall Qualifiers: Encounter type: initial encounter Qualified Code(s): W19.XXXA - Unspecified fall, initial encounter Sciatica Qualifiers: Laterality: right Qualified Code(s): M54.31 - Sciatica, right side Lower back pain Qualifiers: Chronicity: acute Back pain laterality: midline Sciatica presence: with sciatica Sciatica laterality: sciatica of right side Qualified Code(s): M54.41 - Lumbago with sciatica, right side Compression fracture of lumbar vertebra Qualifiers: Encounter type: subsequent encounter Lumbar vertebra fracture level: L4 F racture healing: with delayed healing Qualified Code(s): S32.040G - Wedge compression fracture of fourth lumbar vertebra, subsequent encounter for fracture with delayed healing
[2023-11-18] MEDS: ALBUT/IPRATROP 3MG/0.5MG NEB 3 ML VIAL NEB STA (08:00)
--- NOTE | 2023-11-18 08:18 | CT Scan Report ---
CT OF THE HEAD WITHOUT CONTRAST CLINICAL HISTORY: fall, warfarin COMPARISON STUDY: No previous studies for comparison. CT DOSE: 625.8 mGy.cm TECHNIQUE: Helical axial images of the head were obtained without IV contrast. Automated exposure con trol was utilized for the study. A dose lowering technique was utilized adhering to the principles o f ALARA. FINDINGS: No acute intracranial hemorrhage, midline shift or mass effect is present. The ventricular system is unremarkable. The basal cisterns are patent. No extra-axial collections are present. There are no findings to suggest acute dural sinus thrombosis or acute territorial infarct. White matter hy podensity suggests small vessel disease. There is no calvarial fracture. A small mucous retention cys t within the left maxillary sinus. IMPRESSION: 1. No acute intracranial findings. 2. No calvarial fracture. ACT 112: Negative or not required by law. Electronically signed by: Mariusz Araujo M.D. 11/18/2023 8:16 AM
[2023-11-18] MEDS: ACETAMINOPHEN 1,000 MG/100 ML VIAL IV STA (08:30)
[2023-11-18] MEDS: MoRPHine SULFATE 4 MG/ML 1 ML CARP\\VIAL IV STA (08:54)
[2023-11-18] MEDS: KETOROLAC TROMETHAMINE 15 MG/ML VIAL IV ONE (08:54)
[2023-11-18 09:08] LABS: Basophils # (auto) 0.04 K/uL (0.00-0.20); Basophils % (auto) 0.3 %; Eosinophils % (auto) 0.7 %; Hemoglobin 16.2 g/dl (14.0-18.0); Immature Granulocytes # (auto) 0.08 K/uL (0.01-0.20); Immature Granulocytes % (auto) 0.6 %; Lymphocytes # (auto) 1.25 K/uL (1.20-3.40); Lymphocytes % (auto) 8.9 %; Mean Corpuscular Hemoglobin 31.9 pg (25.0-34.0); Mean Corpuscular Hgb Conc 35.2 g/dL (32.0-36.0); Mean Corpuscular Volume 90.6 fL (80.0-100.0); Mean Platelet Volume 9.4 fL (9.4-12.4); Monocytes % (auto) 9.3 %; Neutrophils # (auto) 11.25 K/uL (1.40-6.50); Neutrophils % (auto) 80.2 %; Platelet Count 249 K/uL (130-400); RDW Coefficient of Variation 13.2 % (11.5-14.5); RDW Standard Deviation 44.2 fL (36.4-46.3); Red Blood Count 5.08 M/uL (4.70-6.10); White Blood Count 14.02 K/ul (4.8-10.8)
[2023-11-18 09:15] LABS: Albumin Globulin Ratio 1.3 (0.9-2); Albumin Level 3.8 gm/dl (3.4-5.0); BUN Creatinine Ratio 44.1 (10-20); Bilirubin,Total 1.1 mg/dl (0.2-1.0); Calcium 9.2 mg/dl (8.6-10.3); Creatinine Clr Calc Pharmacy 88.2 ml/min; Est GFR (African American) 100.9 ml/min; Est GFR (Non-African American) 87.1 ml/min; Globulin 2.9 gm/dl (2.5-4.0); Magnesium 1.8 mg/dl (1.7-2.4); Potassium 3.9 mmol/L (3.5-5.1); Total Protein 6.7 gm/dl (6.0-8.3)
[2023-11-18 09:21] LABS: Troponin I High Sensitivity 18.4 pg/ml (0-20)
[2023-11-18 09:30] LABS: INR 5.3 (0.9-1.1); Partial Thromboplastin Ratio 1.5; Partial Thromboplastin Time 42 Seconds (21-31); Prothrombin Time 51.8 Seconds (9.0-12.0)
--- NOTE | 2023-11-18 09:40 | XRay Report ---
XR chest 1V portable CLINICAL HISTORY: hypoxia TECHNIQUE: Single frontal radiograph of the chest was obtained. Comparison: Comparison is made to rib series 07/15/2023 FINDINGS: No lines and tubes are seen. Cardiomegaly is noted. The aortic arch is calcified. The lungs are clear . No evidence of pleural effusion or pneumothorax. IMPRESSION: No acute chest disease. Cardiomegaly is noted. ACT 112: Negative or not required by law. Electronically signed by: Vinay Branch M.D. 11/18/2023 9:39 AM
[2023-11-18] MEDS: SODIUM CHLORIDE 0.9% 500 ML IV ONE (09:45)
--- NOTE | 2023-11-18 10:06 | History & Physical Report ---
Date of Service November 18, 2023 Assessment & Plan (1) Fall: Plan: Patient sustained a ground-level fall on 11/18; recurrent falls in the setting of recent back injury Patient reports his legs gave out on him while he was using his walker No head strike, LOC, dizziness/lightheadedness prior to fall, or tripping Patient was at [place] [facility] on 11/13 and was noted to have a mild acute L4 compression deformity; was following up with Dr. Carlson outpatient for a brace Mild leukocytosis at 14.[address] NAF CXR NAF UA ordered, pending Bilateral pelvic x-ray revealed no acute abnormalities MRI lumbar spine w/o contrast ordered, pending Orthotics consult for LSO brace Acetaminophen 1000 mg p.o. scheduled q8h for pain Morphine 2-4 mg q4h as needed for breakthrough pain (patient reports morphine IV has been more effective than p.o. oxycodone) Monitor for respiratory depression; supplemental oxygen as needed to maintain SpO2>94% Lidocaine patch application/removal daily Gabapentin 100mg p.o. TID Given radicular pain, consider adding on steroids, such as dexamethasone 10 mg daily, if patient is refractory to pain control above [facility] surgery consulted A.m. CBC, BMP, PT/INR (2) Closed compression fracture of L4 vertebra: Plan: Patient first noticed lower back/leg pain on Thursday 11/09 Chiropractor manipulation on Saturday 11/11 A/P CT on 11/13 noted mild acute L4 compression deformity (3) H/O deep venous thrombosis: Plan: On warfarin Supratherapeutic INR at 5.3 on arrival Caution use of Toradol/NSAIDs Hold warfarin for now, then consider restarting pending surgery eval Monitor daily PT/INR (4) COPD (chronic obstructive pulmonary disease): Plan: Continue home inhaler (5) Hyperlipidemia: Plan: Continue atorvastatin (6) BPH (benign prostatic hyperplasia): Plan: Continue finasteride (7) Aortic stenosis, severe: Plan: Chronic; noted Plan [facility] Regular diet VTE PPx: On warfarin History of Present Illness Chief Complaint: Recurrent falls, lumbar spine injury Primary Care Provider: ANNELISE Merrill Vikram is an 83-year-old male with PMH of COPD, aortic stenosis, BPH, hyperlipidemia, DVT, and vertigo. He presented via EMS for a ground-level fall the morning of 11/18. Patient reportedly went out for a smoke, and then he felt weak and his legs gave out on him. No LOC. No head strike. Patient did not feel dizzy or lightheaded before falling. He was using his walker at this time. Patient is on warfarin for history of DVTs. Patient reports he landed on all fours in order to catch himself. Of note, patient was diagnosed with a mild acute L4 compression deformity last on 11/13. He is unsure what caused this, but noted his back and leg started to bother him on Thursday 11/09, and then he went to the chiropractor for a manipulation on Saturday 11/11. Patient has now suffered 2 falls, with the first being on Tuesday 11/14 and the second being today on 11/18. Patient was set to receive a lumbar brace from Dr. Carlson's office, but did not have a chance to pick it up yet. He has been taking oxycodone as needed for pain at home, without relief. He was also scheduled for a spine MRI tomorrow on 11/19, but has been having too much pain and was unable to get up after falling today. He is having trouble sleeping, but notes that the most comfortable position is sitting down and bending forward. He rates his lower back pain 5/10, and characterizes it as a sharp intermittent pain that is worse with movement. The pain radiates down both legs, with it being worse going down his right hip and right leg. He denies urinary/bowel issues, saddle anesthesia, or numbness or tingling going down the legs. Patient is a current everyday tobacco cigarette/cigar smoker; 0.5 ppd. No supplemental at home oxygen use. No recent alcohol use. Last BM yesterday on 11/17. Patient did not take his morning medications; last took warfarin the evening of 11/17. Patient is mildly hypotensive at 95/42 at time admission; SpO2 97% on 3L NC. ED course: DuoNeb 3 mL Toradol 10 mg Morphine 4 mg IV NSS 500 mL IV Acetaminophen 1000 mg IV ROS: Patient endorses lower back pain radiating to his legs bilaterally with movement Patient denies fever, chills, night sweats, lightheadedness, dizziness prior to falls, headaches, changes in vision or hearing, chest pain, chest palpitations, pleuritic CP, SOB, abdominal pain, N/V/D, urinary symptoms, blood in the urine or stool, saddle anesthesia, or numbness/tingling in the arms or legs. Allergies Allergy/AdvReac Type Severity Reaction Status Date / Time No Known Allergies Allergy Verified 11/18/23 10:13 Home Medications Medication Instructions Recorded Confirmed Type omega 0-bva-jcz-fish oil 1,000 mg 0 mg PO QAM 12/21/18 11/18/23 History (120 mg-180 mg) capsule (Fish Oil) wlcfwcmd-dpp-lmegb acid 0.4 0 tab PO QAM 09/05/20 11/18/23 History mg-lycopene 300 mcg-lutein 250 mcg tablet (Centrum Silver) atorvastatin 10 mg tablet 10 mg PO HS #90 tabs 12/23/22 11/18/23 Rx warfarin 5 mg tablet See Rx Instructions .Route 12/23/22 11/18/23 Rx .COMPLEX #180 tabs fluticasone fur. 100 mcg-umeclid 1 inh inhalation DAILY #60 ea 01/21/23 11/18/23 Rx 62.5 mcg-vilant 25 mcg inhalat.powder (Trelegy Ellipta) finasteride 5 mg tablet 5 mg PO DAILY #90 tabs 10/03/23 11/18/23 Rx glucosamine 750 vi-lulhucdhlch-vxx 0 tab PO DAILY 10/24/23 11/18/23 History no1 644 mg-C 30 mg-ana 1 mg tablet (Osteo Bi-Flex Triple Strength) triamcinolone acetonide 0.5 % 1 applic topical DAILY #15 grams 10/24/23 11/18/23 Rx topical cream tramadol 50 mg tablet 50 mg PO DIRECTED PRN Pain 11/16/23 11/18/23 History acetaminophen 500 mg tablet 1,000 mg (2 x 500 mg) PO Q8H PRN 11/30/23 Rx (Tylenol Extra Strength) fever or pain #30 tabs diclofenac sodium 1 % topical gel 2 g EXT BID #100 grams 11/30/23 Rx (Voltaren Arthritis Pain) docusate sodium 100 mg capsule 100 mg PO BID PRN constipation #30 11/30/23 Rx caps famotidine 20 mg tablet 20 mg PO BID #60 tabs 11/30/23 Rx gabapentin 300 mg capsule 300 mg PO TID 30 days #90 caps 11/30/23 Rx lidocaine 5 % topical patch 1 patch transdermal QAM #15 ea 11/30/23 Rx oxycodone 5 mg tablet 5 - 10 mg (1 - 2 x 5 mg) PO Q6H 11/30/23 Rx PRN pain #14 tabs polyethylene glycol 3350 17 gram 17 g PO DAILY PRN constipation #14 11/30/23 Rx oral powder packet (Miralax) ea prednisone 20 mg tablet 20 mg PO DAILY #3 tabs 11/30/23 Rx sennosides 8.6 mg tablet (Senokot) 17.2 mg (2 x 8.6 mg) PO QAM #14 11/30/23 Rx tabs Past Med/Surg History Medical History (Updated 12/01/23 @ 09:30 by Marcial Ren PA-C) Lumbosacral radiculopathy Spinal stenosis of lumbar region Colon polyp Varicose vein of leg History of SCC (squamous cell carcinoma) of skin History of basal cell carcinoma Diverticulosis of colon BPH (benign prostatic hyperplasia) Aortic stenosis, moderate pt unaware History of kidney stones COPD (chronic obstructive pulmonary disease) pt unaware Gangrenous cholecystitis Cholelithiasis and cholecystitis without obstruction H/O deep venous thrombosis over 10 yrs ago> Warfarin > unknown cause Abdominal pain resolved per pt Chest pain at rest Pneumonia resolved Hypertension Bladder stone Surgical History History of colonoscopy History of tooth extraction S/P laparoscopic cholecystectomy 11/24/20 Dr. Carlos A Jacobo- Acute cholecystitis with gangrene gallbladder S/P trigger finger release bilat hands multiple times Basal cell carcinoma with removal from forehead/back Family History Brother Prostate cancer Other Family history non-contributory Denies family history of Ovarian cancer Myocardial infarction Breast cancer Colorectal cancer Social History Smoking Status: Current every day smoker Tobacco Type: Cigarettes Cigarettes Per Day: on occasion; Second Hand Exposure: No; Do You Dip or Chew Tobacco: No; Hx Alcohol Use: Yes Alcohol type: beer Alcohol Intake Frequency: Monthly or Less Hx Substance Use: No Preferred Language: Indonesian Communication Ability: Effective Visual Impairment: No Limitations Hearing Ability: Normal Product Grader Required: No Beliefs That Will Affect Care: None marital status: Current Living Situation: Alone current occupational status: retired How many Children do You have: 3 Other Information That Helps Us Care for You: No Feels Safe at Home: Yes Safety Concerns: Feels Safe At This Time Childhood Exposure to Second-Hand Smoke: Yes Diet: regular caffeine: Yes during the past year weight has: remained stable Dental Care, Regularly: Yes Physical Activity Frequency: Daily Seatbelt Use: always Sunscreen Use: Yes Do you think of yourself as: straight/heterosexual Gender Identity: Male Assistive Devices: Walker Review of Systems Review of Systems: See HPI above Physical Exam Physical Exam: General: Mild physical distress secondary to back pain; non-toxic appearing; pleasant affect; well-nourished; cooperative; SpO2 94% on 2L NC HEENT: normocephalic, atraumatic; no scleral icterus; PERRLA; moist mucus membrane; vision and hearing intact Neck: supple; no lymphadenopathy; trachea midline Skin: warm, dry without signs of tenting; no cyanosis; no rashes, bruising, lesions, or erythema noted CV: chest wall NTP; RRR; S1/S2 normal; 4/6 systolic ejection murmur auscultated at the second ICS MCL; pulses intact and symmetric at radial, DP, and PT Lungs: no acute respiratory distress; symmetrical chest wall expansion; diminished breath sounds across all lung davalos w/o adventitious sounds; no wheezing ABD: Soft, NTP; BS present; no rebound/guarding; no ascites; no distention Back: No signs of bruising or active bleeding; thoracic spine NTP; lumbar spine mildly TTP MSK: no tics or fasciculations; +1 pitting edema in LEs B/L, nonerythematous, brown/purple; shooting pain with all movement of legs and hips; patient is unable to lift legs supine at the hip off the bed due to pain; patient demonstrates ability to wiggle toes Neuro: A&Ox3; normal mood and affect; fluent speech; no focal deficits; sensation intact in the LEs b/l Results & Data Results & Data Vital Signs (Past 12 Hours) Vital Signs Temp Pulse Pulse Resp BP BP Pulse Ox 11/18/23 09:07 75 18 95/42 L 97 11/18/23 08:04 91 H 11/18/23 07:36 37.0 C 87 20 135/64 91 O2 Del Method O2 Flow Rate 11/18/23 09:07 Nasal Cannula 3 11/18/23 08:04 11/18/23 07:36 Nasal Cannula 3 Laboratory Results Abnormal lab results 11/18/23 Range/Units 08:30 WBC 14.02 H (4.8-10.8) K/ul Neut # (Auto) 11.25 H (1.40-6.50) K/uL [place] # (Auto) 1.30 H (0.11-0.59) K/uL PT 51.8 H (9.0-12.0) Seconds INR 5.3 H (0.9-1.1) APTT 42 H (21-31) Seconds Sodium 132 L (136-145) mmol/L BUN 30 H (6-23) mg/dl BUN/Creatinine Ratio 44.1 H (10-20) Glucose 121 H (70-99(Fasting)) mg/dl Total Bilirubin 1.1 H (0.2-1.0) mg/dl AST 55 H (13-39) U/L Diagnostic Findings Head CT 11/18/23 07:51 CT OF THE HEAD WITHOUT CONTRAST CLINICAL HISTORY: fall, warfarin COMPARISON STUDY: No previous studies for comparison. CT DOSE: 625.8 mGy.cm TECHNIQUE: Helical axial images of the head were obtained without IV contrast. Automated exposure control was utilized for the study. A dose lowering technique was utilized adhering to the principles of ALARA. FINDINGS: No acute intracranial hemorrhage, midline shift or mass effect is present. The ventricular system is unremarkable. The basal cisterns are patent. No extra-axial collections are present. There are no findings to suggest acute dural sinus thrombosis or acute territorial infarct. White matter hypodensity suggests small vessel disease. There is no calvarial fracture. A small mucous retention cyst within the left maxillary sinus. IMPRESSION: 1. No acute intracranial findings. 2. No calvarial fracture. ACT 112: Negative or not required by law. Electronically signed by: Mariusz Araujo M.D. 11/18/2023 8:16 AM Chest X-Ray 11/18/23 08:00 XR chest 1V portable CLINICAL HISTORY: hypoxia TECHNIQUE: Single frontal radiograph of the chest was obtained. Comparison: Comparison is made to rib series 07/15/2023 FINDINGS: No lines and tubes are seen. Cardiomegaly is noted. The aortic arch is calcified. The lungs are clear. No evidence of pleural effusion or pneumothorax. IMPRESSION: No acute chest disease. Cardiomegaly is noted. ACT 112: Negative or not required by law. Electronically signed by: Vinay Branch M.D. 11/18/2023 9:39 AM Code Status & VTE Plan Code Status DNR/DNI VTE Prophylaxis Plan VTE Prophylaxis will be ordered: Yes Supervising Physician Co-Signing Physician Notes I personally saw and examined the patient. I independently reviewed the labs, EKG, imaging, problem list, medication list, past medical history and family history. I verified all dougherty points and agree with Chris Zelaya PA-C with the following exceptions and/or additions: 83 year old male presents to the ER following a ground level fall. [place] weak and his legs gave out on him. Recent back pain starting 11/09 but worse following chiropractor on 11/11. No change in bowels/urine, he is unsteady on his feet since when his back pain flares up but no weakness or loss of sensation outside this time. O/E A&Ox3, HS RRR, MANDY 5/6 loudest LUSB, Chest CTAB, Abdo SNT, no b/l lower extremity weakness or loss of sensation, pain over central lumbar spine palpation A/P Fall - PT/OT Lumbar compression fracture with radicular pain - gabapentin 100mg PO TID, acetaminophen 1g PO TID, back brace, consult ortho spine, PT/OT PG Care Time/CCT Total # of Minutes Spent Total Time Spent with Patient: Total time spent is greater than 50% in coordination of care (as documented) at patient's floor/unit and/or counseling patient: Coding [place] [address] INT INP/OBS CARE 2/55MIN Patient Type Established Medical Decision Making Moderate Complexity Diagnoses Fall W19.XXXA Closed compression fracture of L4 vertebra S32.040A H/O deep venous thrombosis Z86.718 Chronic obstructive pulmonary disease, unspecified COPD type J44.9 COPD type: unspecified COPD Pure hypercholesterolemia E78.00 Hyperlipidemia type: pure hypercholesterolemia BPH (benign prostatic hyperplasia) N40.0 Aortic stenosis, severe I35.0 (4) COPD (chronic obstructive pulmonary disease) COPD type: unspecified COPD Qualified Code(s): J44.9 - Chronic obstructive pulmonary disease, unspecified (5) Hyperlipidemia Hyperlipidemia type: pure hypercholesterolemia Qualified Code(s): E78.00 - Pure hypercholesterolemia, unspecified
--- NOTE | 2023-11-18 10:43 | Electrocardiogram Report ---
Test Reason : Blood Pressure : / mmHG Vent. Rate : 087 BPM Atrial Rate : 087 BPM P-R Int : 134 ms QRS Dur : 076 ms QT Int : 366 ms P-R-T Axes : 077 092 012 degrees QTc Int : 440 ms Normal sinus rhythm Rightward axis Cannot rule out Septal infarct , age undetermined Abnormal ECG When compared with ECG of 21-NOV-2020 05:19, Septal infarct is now Present T wave amplitude has decreased in Anterior leads T wave amplitude has increased in Lateral leads Confirmed by Giovanny Castellanos ([id number]) on 11/18/2023 10:42:58 AM Referred By: Confirmed By:Giovanny Castellanos
[2023-11-18] MEDS ORDERED: NALOXONE HCL 0.4 MG/1 ML VIAL/CARP IV PRN (11:15)
[2023-11-18] MEDS: MoRPHine SULFATE 2 MG/ML CARP IV STA (12:05)
[2023-11-18] MEDS: LIDOCAINE 5% 1 PATCH TD SCH (12:08)
[2023-11-18] MEDS: ONDANSETRON INJ 2 MG/ML 2 ML VIAL ONE (12:09)
[2023-11-18] MEDS: MoRPHine SULFATE 10 MG/ML CARP/VIAL ONE (12:09)
[2023-11-18] MEDS: GABAPENTIN 100 MG CAP PO STA (12:23)
[2023-11-18 12:26] LABS: Appearance Urine Clear (Clear); Bacteria Urine Automated Negative (Negative); Blood Urine Negative (Negative); Color Urine Dark Yellow; Glucose Urine UA Negative (Negative); Ketones Urine 1+ (Negative); Leukocyte Esterase Urine Negative (Negative); Nitrite Urine Negative (Negative); Protein Urine Trace (Negative); RBC Urine Automated 0-4 /hpf (0-4); Specific Gravity Urine 1.033 (1.000-1.030); Urobilinogen Urine Negative (Negative); pH Urine 5.5 (4.5-7.5)
[2023-11-18 12:49] LABS: Bilirubin Urine 1+ (Negative)
--- NOTE | 2023-11-18 12:54 | XRay Report ---
XR hip GRAYSON 2v w pelvis CLINICAL HISTORY: B/l hip pain, fall TECHNIQUE: 2 views of the bilateral hips and single frontal view of the pelvis were obtained. Comparison: None available at the time of this dictation. FINDINGS: There is no evidence of an acute fracture. Degenerative changes are seen in the hip joint. Vascular c alcifications are noted. IMPRESSION: Degenerative changes without evidence of acute abnormality. ACT 112: Negative or not required by law. Electronically signed by: Vinay Branch M.D. 11/18/2023 12:53 PM
[2023-11-18] MEDS ORDERED: NON-FORMULARY MEDICATION (Fluticasone-Umeclidin-Vilanter [Trelegy Ellipta] 100-62.5-25 mcg INH SCH (13:13)
[2023-11-18] MEDS ORDERED: ONDANSETRON INJ 2 MG/ML 2 ML VIAL IV PRN (13:13)
[2023-11-18] MEDS ORDERED: ACETAMINOPHEN 325 MG TAB PO PRN (13:13)
[2023-11-18] MEDS ORDERED: oxyCODONE HCL IR 5 MG TAB (IMMEDIATE RELEASE) PO PRN (13:13)
[2023-11-18] MEDS: oxyCODONE HCL IR 5 MG TAB (IMMEDIATE RELEASE) PO PRN (13:30)
[2023-11-18] MEDS: FINASTERIDE 5 MG TAB PO SCH (15:02)
[2023-11-18] MEDS ORDERED: WARFARIN SOD 10 MG TAB PO SCH (16:00)
[2023-11-18] MEDS: ACETAMINOPHEN 500 MG TAB PO SCH (17:03)
[2023-11-18] MEDS: MoRPHine SULFATE 4 MG/ML 1 ML CARP\\VIAL IV PRN (17:50)
--- NOTE | 2023-11-18 19:36 | Magnetic Resonance Report ---
MRI OF THE LUMBAR SPINE WITHOUT IV CONTRAST CLINICAL HISTORY: Compression fracture. COMPARISON STUDY: Radiographs of the lumbar spine dated 08/27/2011. Abdominal CT dated 11/13/2023. TECHNIQUE: MRI of the lumbar spine is performed utilizing various T1 and T2-weighted sequences in the axial and sagittal planes. IV contrast was not administered for this examination. FINDINGS: Lumbar spine: A transitional lumbosacral segment will be labeled S1 for the purposes of this examinat ion. There is a mild aekvw-gi-ywlkuwml inferior endplate compression fracture of L4 with correspondin g marrow edema. No retropulsion of fragments is identified. There is no evidence of posterior element involvement. No additional acute fracture is identified. Vertebral body height is otherwise maintain ed throughout the lumbar spine. Alignment is preserved. There is mild hyperlordosis. Small anterior a nd lateral marginal osteophytes are seen throughout. The transverse and spinous processes appear inta ct. A hemangioma is noted in the body of L1. No destructive bony lesion is seen. Intervertebral discs: Disc desiccation and mild loss of height is seen throughout the lumbar spine. Spinal cord: The visualized spinal cord is normal in morphology and signal intensity. The conus medul abisai terminates at the level of L2. The nerve roots of the cauda equina are normal in morphology. L1-L2: Unremarkable. This level is only assessed on the sagittal sequences. L2-L3: There is broad-based posterior disc bulge, which abuts the transiting nerve roots. There is no significant acquired compromise of the central canal. Lateral disc bulge contributes to bilateral rivas barticular stenosis. In conjunction with facet arthropathy, there is mild bilateral neural foraminal stenosis. L3-L4: There is broad-based posterior disc bulge with annular fissure, which abuts the transiting ner ve roots. In conjunction with hypertrophy of the ligamentum flavum, there is ypxe-gd-csqljafp central canal stenosis at this level with a minimum AP diameter of 7 mm. Lateral disc bulges contribute to b ilateral subarticular stenosis, left greater than right. This may abut the exiting left L3 nerve root . In conjunction with facet arthropathy, there is mild left neural foraminal stenosis. L4-L5: There is mild posterior disc bulge. This abuts the transiting nerve roots. No significant acqu ired compromise of the central canal is seen. Lateral disc bulges contribute to bilateral subarticula r stenosis. This may abut the exiting bilateral L4 nerve roots. In conjunction with facet arthropathy , there is kwywckcu-bt-kdwjnf bilateral neural foraminal stenosis. L5-S1: There is minimal posterior disc bulge with annular fissure. No significant acquired compromise of the central canal is seen. Lateral disc bulge is seen bilaterally, right greater than left. This contributes to bilateral subarticular stenosis. This may impinge on the exiting bilateral L5 nerve ro ots. In conjunction with facet arthropathy, there is pkydkzkl-ih-xnlgmj right and mild left neural fo raminal stenosis. Sacrum: The visualized sacrum is normal in morphology and signal intensity. Soft tissues: The paraspinous soft tissues are normal as imaged. The retroperitoneal structures are g rossly unremarkable but incompletely evaluated. Bladder calculi are noted in the pelvis. There is div erticulosis of the sigmoid colon. IMPRESSION: 1. Mlnto-uy-zlyubpky inferior endplate compression fracture of L4 with mild loss of height. No retrop ulsed fragments are identified. 2. No additional acute fracture is seen. 3. Spondylotic change as above. See discussion for detailed level by level analysis. 4. Bladder calculi are noted. 5. Additional findings as above. Dictated: 11/18/2023 7:07 PM Transcribed: 11/18/2023 7:24 PM Shane [id number] ROBERT_Avril Electronically signed by: Anthony Beyer M.D. 11/18/2023 7:35 PM
[2023-11-18] MEDS: ATORVASTATIN 10 MG TAB PO SCH (20:36)
[2023-11-18] MEDS: GABAPENTIN 100 MG CAP PO SCH (20:57)
[2023-11-18] MEDS: SODIUM CHLORIDE 0.9% 1,000 ML IV SCH (22:25)
[2023-11-19] MEDS: MoRPHine SULFATE 2 MG/ML CARP IV PRN (03:43)
[2023-11-19] MEDS: FLUTICASONE FUROATE 100MCG 14 PUFFS/INHALER INH SCH (08:24)
[2023-11-19] MEDS: TRIAMCINOLONE ACET 0.5% CR 15 GM TUBE TOP SCH (08:26)
[2023-11-19] MEDS: UMECLIDINIUM/VILANTEROL 62.5/25MCG 7 PUFFS/INHALER INH SCH (08:27)
[2023-11-19 08:53] LABS: Basophils # (auto) 0.03 K/uL (0.00-0.20); Basophils % (auto) 0.3 %; Eosinophils # (auto) 0.07 K/uL (0.00-0.50); Eosinophils % (auto) 0.8 %; Hematocrit (blood only) 44.8 % (42.0-52.0); Hemoglobin 15.7 g/dl (14.0-18.0); Immature Granulocytes # (auto) 0.04 K/uL (0.01-0.20); Immature Granulocytes % (auto) 0.4 %; Lymphocytes # (auto) 1.15 K/uL (1.20-3.40); Lymphocytes % (auto) 12.6 %; Mean Corpuscular Volume 91.2 fL (80.0-100.0); Mean Platelet Volume 9.4 fL (9.4-12.4); Monocytes # (auto) 0.83 K/uL (0.11-0.59); Monocytes % (auto) 9.1 %; Neutrophils # (auto) 7.03 K/uL (1.40-6.50); Neutrophils % (auto) 76.8 %; Platelet Count 242 K/uL (130-400); RDW Coefficient of Variation 13.4 % (11.5-14.5); RDW Standard Deviation 45.2 fL (36.4-46.3); Red Blood Count 4.91 M/uL (4.70-6.10); White Blood Count 9.15 K/ul (4.8-10.8)
[2023-11-19 09:13] LABS: BUN Creatinine Ratio 40.3 (10-20); Calcium 8.5 mg/dl (8.6-10.3); Creatinine Clr Calc Pharmacy 94.7 ml/min; Est GFR (African American) 104.8 ml/min; Est GFR (Non-African American) 90.5 ml/min; Potassium 4.1 mmol/L (3.5-5.1)
[2023-11-19 09:17] LABS: INR 4.4 (0.9-1.1); Prothrombin Time 43.5 Seconds (9.0-12.0)
--- NOTE | 2023-11-19 09:35 | Orthopedic Consultation ---
Date of Service November 19, 2023 History of Present Illness Reason for Consultation: Low back pain, L4 compression fracture. Requesting Physician: . Attending Physician: Rodrick Lomeli MD 83-year-old male who has been to the ED recently for lower back pain. The patient was seen 5 days ago and diagnosed with an L4 lumbar compression fracture. The patient was seen 2 days ago for increasing pain and discomfort. The patient has seen spinal surgery in the outpatient office, he was fitted for a brace but did not think it helped. He has reconsidered though and was to pick a brace up today and has an MRI scheduled for tomorrow. He had gone to the chiropractor after having some lower back pain. A day or so after the manipulation, his pain worsened and he felt pain down his right left, his symptoms worsened around 4 days ago without any specific incident the patient states that his legs are weak secondary to low back pain. Today, his knees gave out and he slowly went to the ground. He could not get up on his own. He did not suffer any injury. In route to the hospital, he received IV morphine and IV Zofran. His O2 saturation was noted to be low upon arrival and he was placed on some nasal cannula oxygen. There have been no urinary complaints. His legs are in general weak as noted above but he has not noticed any difficulty with urination or numbness in the groin. There has been no fever. Exam reveals the patient to gait pain more in the lower lumbar region slightly tender to palpation. He did have some low back pain on range of motion of his lower extremities, but he had intact strength her EHL ankle plantar dorsiflexion knee flexion extension strength in hip flexion and extension. Negative straight leg raise, only low back pain noted. MRI OF THE LUMBAR SPINE WITHOUT IV CONTRAST 12/17/2023 CLINICAL HISTORY: Compression fracture. COMPARISON STUDY: Radiographs of the lumbar spine dated 08/27/2011. Abdominal CT dated 11/13/2023. TECHNIQUE: MRI of the lumbar spine is performed utilizing various T1 and T2- weighted sequences in the axial and sagittal planes. IV contrast was not administered for this examination. FINDINGS: Lumbar spine: A transitional lumbosacral segment will be labeled S1 for the purposes of this examination. There is a mild bnhay-vf-pcnzyjzg inferior endplate compression fracture of L4 with corresponding marrow edema. No retropulsion of fragments is identified. There is no evidence of posterior element involvement. No additional acute fracture is identified. Vertebral body height is otherwise maintained throughout the lumbar spine. Alignment is preserved. There is mild hyperlordosis. Small anterior and lateral marginal osteophytes are seen throughout. The transverse and spinous processes appear intact. A hemangioma is noted in the body of L1. No destructive bony lesion is seen. Intervertebral discs: Disc desiccation and mild loss of height is seen throughout the lumbar spine. Spinal cord: The visualized spinal cord is normal in morphology and signal intensity. The conus medullaris terminates at the level of L2. The nerve roots of the cauda equina are normal in morphology. L1-L2: Unremarkable. This level is only assessed on the sagittal sequences. L2-L3: There is broad-based posterior disc bulge, which abuts the transiting nerve roots. There is no significant acquired compromise of the central canal. Lateral disc bulge contributes to bilateral subarticular stenosis. In conjunction with facet arthropathy, there is mild bilateral neural foraminal stenosis. L3-L4: There is broad-based posterior disc bulge with annular fissure, which abuts the transiting nerve roots. In conjunction with hypertrophy of the ligamentum flavum, there is vpkn-zg-hffvwuut central canal stenosis at this level with a minimum AP diameter of 7 mm. Lateral disc bulges contribute to bilateral subarticular stenosis, left greater than right. This may abut the exiting left L3 nerve root. In conjunction with facet arthropathy, there is mild left neural foraminal stenosis. L4-L5: There is mild posterior disc bulge. This abuts the transiting nerve roots. No significant acquired compromise of the central canal is seen. Lateral disc bulges contribute to bilateral subarticular stenosis. This may abut the exiting bilateral L4 nerve roots. In conjunction with facet arthropathy, there is bodnqpoh-hw-vlpquv bilateral neural foraminal stenosis. L5-S1: There is minimal posterior disc bulge with annular fissure. No significant acquired compromise of the central canal is seen. Lateral disc bulge is seen bilaterally, right greater than left. This contributes to bilateral subarticular stenosis. This may impinge on the exiting bilateral L5 nerve roots. In conjunction with facet arthropathy, there is ghopfgqp-dr-dpiyoz right and mild left neural foraminal stenosis. Sacrum: The visualized sacrum is normal in morphology and signal intensity. Soft tissues: The paraspinous soft tissues are normal as imaged. The retroperitoneal structures are grossly unremarkable but incompletely evaluated. Bladder calculi are noted in the pelvis. There is diverticulosis of the sigmoid colon. IMPRESSION: 1. Yrkbc-pc-pbsminhg inferior endplate compression fracture of L4 with mild loss of height. No retropulsed fragments are identified. 2. No additional acute fracture is seen. 3. Spondylotic change as above. See discussion for detailed level by level analysis. 4. Bladder calculi are noted. 5. Additional findings as above. Review of the lumbar MRI as mentioned from November 18, this is my separate interpretation, this reveals a inferior endplate fracture at L4 but no critical areas of stenosis or foraminal regions beyond the L4-5 level only. Impression: L4 compression fracture inferior endplate, some limited moderate foraminal narrowing at the L4-5 level bilaterally but no significant central stenosis. Plan: Today I recommended the patient obtain a lumbosacral brace, and then ge ntle mobilization with physical therapy, appropriate pain medications. The patient was initially referred to Dr. Carlson's office, he can either follow-up with Dr. Carlson's office or my office outpatient when mobilized for fracture follow-up. Allergies Allergy/AdvReac Type Severity Reaction Status Date / Time No Known Allergies Allergy Verified 11/18/23 10:13 Home Medications Medication Instructions Recorded Confirmed Type omega 8-gmy-ffl-fish oil 1,000 mg 0 mg PO QAM 12/21/18 11/18/23 History (120 mg-180 mg) capsule (Fish Oil) kuodlfam-sqv-egxgz acid 0.4 0 tab PO QAM 09/05/20 11/18/23 History mg-lycopene 300 mcg-lutein 250 mcg tablet (Centrum Silver) atorvastatin 10 mg tablet 10 mg PO HS #90 tabs 12/23/22 11/18/23 Rx warfarin 5 mg tablet See Rx Instructions .Route 12/23/22 11/18/23 Rx .COMPLEX #180 tabs fluticasone fur. 100 mcg-umeclid 1 inh inhalation DAILY #60 ea 01/21/23 11/18/23 Rx 62.5 mcg-vilant 25 mcg inhalat.powder (Trelegy Ellipta) finasteride 5 mg tablet 5 mg PO DAILY #90 tabs 10/03/23 11/18/23 Rx glucosamine 750 nr-vhtbfbobjvk-yoh 0 tab PO DAILY 10/24/23 11/18/23 History no1 644 mg-C 30 mg-ana 1 mg tablet (Osteo Bi-Flex Triple Strength) triamcinolone acetonide 0.5 % 1 applic topical DAILY #15 grams 10/24/23 11/18/23 Rx topical cream tramadol 50 mg tablet 50 mg PO DIRECTED PRN Pain 11/16/23 11/18/23 History Past Med/Surg History Medical History BPH (benign prostatic hyperplasia) Aortic stenosis, moderate pt unaware History of kidney stones COPD (chronic obstructive pulmonary disease) pt unaware Gangrenous cholecystitis Cholelithiasis and cholecystitis without obstruction H/O deep venous thrombosis over 10 yrs ago> Warfarin > unknown cause Abdominal pain resolved per pt Chest pain at rest Pneumonia resolved Hypertension Bladder stone Surgical History History of colonoscopy History of tooth extraction S/P laparoscopic cholecystectomy 11/24/20 Dr. Carlos A Jacobo- Acute cholecystitis with gangrene gallbladder S/P trigger finger release bilat hands multiple times Basal cell carcinoma with removal from forehead/back Family History Brother Prostate cancer Other Family history non-contributory Denies family history of Ovarian cancer Myocardial infarction Breast cancer Colorectal cancer Social History Smoking Status: Current every day smoker Tobacco Type: Cigarettes Cigarettes Per Day: on occasion; Second Hand Exposure: No; Do You Dip or Chew Tobacco: No; Hx Alcohol Use: Yes Alcohol type: beer Alcohol Intake Frequency: Monthly or Less Hx Substance Use: No Preferred Language: Yi Communication Ability: Effective Visual Impairment: No Limitations Hearing Ability: Normal Client Resource Specialist Required: No Beliefs That Will Affect Care: None marital status: Current Living Situation: Alone current occupational status: retired How many Children do You have: 3 Other Information That Helps Us Care for You: No Feels Safe at Home: Yes Safety Concerns: Feels Safe At This Time Childhood Exposure to Second-Hand Smoke: Yes Diet: regular caffeine: Yes during the past year weight has: remained stable Dental Care, Regularly: Yes Physical Activity Frequency: Daily Seatbelt Use: always Sunscreen Use: Yes Do you think of yourself as: straight/heterosexual Gender Identity: Male Assistive Devices: Glasses and Walker Review of Systems All systems reviewed & are unremarkable except as noted in HPI & below. Physical Exam . Results & Data Results & Data Laboratory Results . Diagnostic Findings . PG Care Time/CCT Total # of Minutes Spent Total Time Spent with Patient: Total time spent is greater than 50% in coordination of care (as documented) at patient's floor/unit and/or counseling patient: Coding Level of Care Code 46077 IN/OBS CONSULT LVL 3,45M
[2023-11-19] MEDS ORDERED: POLYETHYLENE (MIRALAX) 17 GM PACK PO PRN (12:04)
--- NOTE | 2023-11-19 12:25 | Hospitalist Progress Note ---
Date of Service November 19, 2023 Assessment & Plan (1) Fall: Plan: Patient sustained a ground-level fall on 11/18; recurrent falls in the setting of recent back injury - No head strike, LOC, dizziness/lightheadedness prior to fall, or tripping - Has been seen in ED on 11/[address] Carlson --> recommended brace Head CT - no acute intracranial findings CXR - no acute findings Bilateral pelvic x-ray revealed no acute abnormalities Ortho spine consulted (Josh) - MRI - L4 Compression fracture, moderate foraminal but no significant central stenosis - Recommend lumbosacral brace - PT/OT Pain control - Tylenol 1000mg q8 - Lidocaine patch - Gabapentine 100mg TID - oxycodone 5-10mg q6h prn - IV morphine for breakthrough pain - could consider steroids if radicular pain does not improve Orthotics consult for LSO brace UA without signs of infection A.m. CBC, BMP, PT/INR (2) COPD (chronic obstructive pulmonary disease): Plan: Continue home inhaler PRN nebs - currently requiring oxygen, baseline is room air Patient reports productive cough is chronic, denies increase in sputum production Pro-Rex added to a.m. labs ? hypoxia related to narcotic use however positive wheezing on exam, DuoNeb given (3) Closed compression fracture of L4 vertebra: Plan: Patient first noticed lower back/leg pain on Thursday 11/09 Chiropractor manipulation on Saturday 11/11 A/P CT on 11/13 noted mild acute L4 compression deformity (4) H/O deep venous thrombosis: Plan: On warfarin, pt reports goal 2-3, managed by PCP. - patient reports normally well-controlled Supratherapeutic INR at 5.3 on arrival --> 4.4 today continue to hold warfarin Monitor daily PT/INR (5) Hyperlipidemia: Plan: Continue atorvastatin (6) BPH (benign prostatic hyperplasia): Plan: Continue finasteride (7) Aortic stenosis, severe: Plan: Chronic; noted Plan Disposition: continued inpatient stay VTE PPx: On warfarin (supratherapeutic) Admission and Anticipated Discharge Date Admission Date: November 18, 2023 Supervising Physician Co-Signing Physician Notes Attending Attestation - Chart reviewed, care plan d/w TANIKA Edmond. I agree w/ the dougherty components of her documentation. Rodrick Lomeli MD Subjective Patient resting in bed. Reports constant pain - in his back and does radiate down to the leg sometimes. Currently reports worst pain is behind is left knee. Wet cough - reports has had this for months, denies recent fevers of chills. hx of COPD. does report decreased appetite. Baseline does not require oxygen at home Review of Systems Review of Systems: All systems reviewed & are unremarkable except as noted in Subjective Physical Exam Physical Exam: General: sitting up in bed, NAD, VS as above Resp: normal respiratory effort, biliteral wheezing CV: RRR, no murmur, Abd: normal bowel sounds, non tender, no hepatosplenomegaly Extremities: Moves all extremities, no edema Neuro: A&O x3, Results & Data Results & Data Vital Signs (Past 12 Hours) Vital Signs Temp Pulse Resp BP Pulse Ox O2 Del Method 11/19/23 08:21 36.7 C 69 18 177/51 H 92 Room Air Laboratory Results CBC, chemistry and coagulation studies reviewed PG Care Time/CCT Total # of Minutes Spent Total Time Spent with Patient: Total time spent is greater than 50% in coordination of care (as documented) at patient's floor/unit and/or counseling patient: Coding Level of Care Code 00277 SUB INP/OBS CARE 3/50MIN Diagnoses Fall W19.XXXA Chronic obstructive pulmonary disease, unspecified COPD type J44.9 COPD type: unspecified COPD Closed compression fracture of L4 vertebra S32.040A H/O deep venous thrombosis Z86.718 Pure hypercholesterolemia E78.00 Hyperlipidemia type: pure hypercholesterolemia BPH (benign prostatic hyperplasia) N40.0 Aortic stenosis, severe I35.0 (2) COPD (chronic obstructive pulmonary disease) COPD type: unspecified COPD Qualified Code(s): J44.9 - Chronic obstructive pulmonary disease, unspecified (5) Hyperlipidemia Hyperlipidemia type: pure hypercholesterolemia Qualified Code(s): E78.00 - Pure hypercholesterolemia, unspecified
[2023-11-19] MEDS: ALBUT/IPRATROP 3MG/0.5MG NEB 3 ML VIAL NEB PRN (13:16)
[2023-11-19] MEDS ORDERED: WARFARIN SOD 7.5 MG TAB PO SCH (16:00)
[2023-11-19 18:57] LABS: Appearance Urine Clear (Clear); Bacteria Urine Automated Negative (Negative); Bilirubin Urine Negative (Negative); Blood Urine 3+ (Negative); Cast Urine Automated 0 /lpf (0-5); Color Urine Yellow; Glucose Urine UA Negative (Negative); Ketones Urine Negative (Negative); Leukocyte Esterase Urine Negative (Negative); Nitrite Urine Negative (Negative); Protein Urine Negative (Negative); RBC Urine Automated >30 /hpf (0-4); Specific Gravity Urine 1.021 (1.000-1.030); Urobilinogen Urine Negative (Negative); pH Urine 5.5 (4.5-7.5)
[2023-11-20] MEDS: oxyCODONE HCL IR 5 MG TAB (IMMEDIATE RELEASE) PO PRN (01:58)
[2023-11-20 08:57] LABS: Basophils # (auto) 0.05 K/uL (0.00-0.20); Basophils % (auto) 0.6 %; Eosinophils # (auto) 0.16 K/uL (0.00-0.50); Eosinophils % (auto) 1.8 %; Hematocrit (blood only) 48.5 % (42.0-52.0); Hemoglobin 16.7 g/dl (14.0-18.0); Immature Granulocytes # (auto) 0.04 K/uL (0.01-0.20); Immature Granulocytes % (auto) 0.5 %; Lymphocytes # (auto) 1.45 K/uL (1.20-3.40); Lymphocytes % (auto) 16.7 %; Mean Corpuscular Hemoglobin 31.9 pg (25.0-34.0); Mean Corpuscular Hgb Conc 34.4 g/dL (32.0-36.0); Mean Corpuscular Volume 92.6 fL (80.0-100.0); Mean Platelet Volume 9.4 fL (9.4-12.4); Monocytes % (auto) 9.2 %; Neutrophils # (auto) 6.19 K/uL (1.40-6.50); Neutrophils % (auto) 71.2 %; Platelet Count 277 K/uL (130-400); RDW Coefficient of Variation 13.5 % (11.5-14.5); RDW Standard Deviation 46.1 fL (36.4-46.3); Red Blood Count 5.24 M/uL (4.70-6.10); White Blood Count 8.69 K/ul (4.8-10.8)
[2023-11-20 09:18] LABS: BUN Creatinine Ratio 27.9 (10-20); Calcium 9.3 mg/dl (8.6-10.3); Creatinine Clr Calc Pharmacy 86.4 ml/min; Est GFR (African American) 100.9 ml/min; Est GFR (Non-African American) 87.1 ml/min; Potassium 4.6 mmol/L (3.5-5.1)
[2023-11-20 09:26] LABS: INR 2.5 (0.9-1.1); Prothrombin Time 25.7 Seconds (9.0-12.0)
[2023-11-20] MEDS: dexAMETHasone 4 MG in SYRINGE 0 ML IV SCH (11:00)
--- NOTE | 2023-11-20 13:25 | Hospitalist Progress Note ---
Date of Service November 20, 2023 Assessment & Plan (1) Fall: Plan: Patient sustained a ground-level fall on 11/18; recurrent falls in the setting of recent back injury - No head strike, LOC, dizziness/lightheadedness prior to fall, or tripping - Has been seen in ED on 11/[address] Carlson --> recommended brace Head CT - no acute intracranial findings CXR - no acute findings Bilateral pelvic x-ray revealed no acute abnormalities Ortho spine consulted (Josh) - MRI - L4 Compression fracture, moderate foraminal but no significant central stenosis - Recommend lumbosacral brace Pain control - Tylenol 1000mg q8 - Lidocaine patch - Gabapentine 100mg TID - oxycodone 5-10mg q6h prn - Dexamethasone started for COPD exacerbation but also back pain PT/OT --> recommending rehab, case management following Orthotics consult for LSO brace UA without signs of infection (2) COPD (chronic obstructive pulmonary disease): Plan: COPD exacerbation Continue home inhaler -Increased sputum production and wheezing suspect exacerbation -ProCal negative -Dexamethasone 4mg BID Now on room air (3) Closed compression fracture of L4 vertebra: Plan: Patient first noticed lower back/leg pain on Thursday 11/09 Chiropractor manipulation on Saturday 11/11 A/P CT on 11/13 noted mild acute L4 compression deformity (4) H/O deep venous thrombosis: Plan: On warfarin, pt reports goal 2-3, managed by PCP. - patient reports normally well-controlled Supratherapeutic INR at 5.3 on arrival - INR 2.5 today, is normally his day to hold warfarin, but will give 7.5mg today given held prior day Monitor daily PT/INR (5) Hyperlipidemia: Plan: Continue atorvastatin (6) BPH (benign prostatic hyperplasia): Plan: Continue finasteride Episode of retention 11/19 - straight cathed, UA without signs of infection, blood likely from Cath - no further episodes of retention since (7) Aortic stenosis, severe: Plan: Chronic; noted Plan Disposition: continued inpatient stay, pending rehab, CM following VTE PPx: On warfarin Admission and Anticipated Discharge Date Admission Date: November 18, 2023 Supervising Physician Co-Signing Physician Notes Attending Attestation - Chart reviewed, care plan d/w TANIKA Edmond. I agree w/ the dougherty components of her documentation. Rodrick Lomeli MD Subjective Patient sitting up in the chair. Appears much better today. LSO brace in place and pain is well controlled.d Feels like his cough has decreased. On room air and does not feel short of breath. Review of Systems Review of Systems: All systems reviewed & are unremarkable except as noted in Subjective Physical Exam Physical Exam: General: sitting up in the chair, appears much better than yesterday, NAD, VS as above Resp: normal respiratory effort, no wheezing today, cough is improved CV: RRR, no murmur, BACK: LSO brace in place Extremities: Moves all extremities, trace b/l LE edema Neuro: A&O x3, Results & Data Results & Data Vital Signs (Past 12 Hours) Vital Signs Temp Pulse Resp BP Pulse Ox O2 Del Method O2 Flow Rate 11/20/23 11:34 36.7 C 69 18 125/76 91 Room Air 11/20/23 07:54 37 C 69 16 148/76 H 94 Nasal Cannula 3 Laboratory Results CBC, chemistry, procal and coagulation studies reveiwed PG Care Time/CCT Total # of Minutes Spent Total Time Spent with Patient: Total time spent is greater than 50% in coordination of care (as documented) at patient's floor/unit and/or counseling patient: Coding Level of Care Code 62531 SUB INP/OBS CARE 3/50MIN Diagnoses Fall W19.XXXA Chronic obstructive pulmonary disease, unspecified COPD type J44.9 COPD type: unspecified COPD Closed compression fracture of L4 vertebra S32.040A H/O deep venous thrombosis Z86.718 Pure hypercholesterolemia E78.00 Hyperlipidemia type: pure hypercholesterolemia BPH (benign prostatic hyperplasia) N40.0 Aortic stenosis, severe I35.0 (2) COPD (chronic obstructive pulmonary disease) COPD type: unspecified COPD Qualified Code(s): J44.9 - Chronic obstructive pulmonary disease, unspecified (5) Hyperlipidemia Hyperlipidemia type: pure hypercholesterolemia Qualified Code(s): E78.00 - Pure hypercholesterolemia, unspecified
[2023-11-20] MEDS: WARFARIN SOD 7.5 MG TAB PO ONE (16:40)
[2023-11-20] MEDS: DICLOFENAC SOD 1% GEL 100 GM TUBE EXT SCH (20:17)
[2023-11-21 10:51] LABS: INR 2.3 (0.9-1.1); Prothrombin Time 24.2 Seconds (9.0-12.0)
--- NOTE | 2023-11-21 13:31 | Hospitalist Progress Note ---
Date of Service November 21, 2023 Assessment & Plan (1) Fall: Plan: Patient sustained a ground-level fall on 11/18; recurrent falls in the setting of recent back injury - No head strike, LOC, dizziness/lightheadedness prior to fall, or tripping - Has been seen in ED on 11/[address] Carlson --> recommended brace Head CT - no acute intracranial findings CXR - no acute findings Bilateral pelvic x-ray revealed no acute abnormalities Ortho spine consulted (Josh) - MRI - L4 Compression fracture, moderate foraminal but no significant central stenosis - Recommend lumbosacral brace Pain control - Tylenol 1000mg q8 - Lidocaine patch - increase Gabapentin 200mg TID - oxycodone 5-10mg q6h prn - Dexamethasone started for COPD exacerbation but also back pain PT/OT --> recommending rehab, case management following Orthotics consult for LSO brace UA without signs of infection (2) COPD (chronic obstructive pulmonary disease): Plan: COPD exacerbation Continue home inhaler -Increased sputum production and wheezing suspect exacerbation -ProCal negative -Dexamethasone 4mg BID --> will transition to daily 11/21 Now on room air, cough decreased (3) Closed compression fracture of L4 vertebra: Plan: Patient first noticed lower back/leg pain on Thursday 11/09 Chiropractor manipulation on Saturday 11/11 A/P CT on 11/13 noted mild acute L4 compression deformity (4) H/O deep venous thrombosis: Plan: On warfarin, pt reports goal 2-3, managed by PCP. - patient reports normally well-controlled - home reigment SuWeSa 7.5mg, MoTuFr 10mg, no dose Supratherapeutic INR at 5.3 on arrival - INR 2.5 , is normally his day to hold warfarin, but will give 7.5mg today given held prior day -11/20 INR therapuetic 2.3, will continue 7.5 mg daily Monitor daily PT/INR (5) Hyperlipidemia: Plan: Continue atorvastatin (6) BPH (benign prostatic hyperplasia): Plan: Continue finasteride Episode of retention 11/19 - straight cathed, UA without signs of infection, blood likely from Cath - no further episodes of retention since 11/20 - struggling with urge and burning this afternoon. will add flomax. Required straight cath- UA without infection If patient retains again, place waterman instead of straight cath (7) Aortic stenosis, severe: Plan: Chronic; noted Plan Disposition: continued inpatient stay, pending rehab, CM following VTE PPx: On warfarin Admission and Anticipated Discharge Date Admission Date: November 18, 2023 Supervising Physician Co-Signing Physician Notes Attending Attestation - Chart reviewed, care plan d/w TANIKA Edmond. I agree with the dougherty components of her documentation. Rodrick Lomeli MD Subjective Patient lying in bed. Pain is well controlled, some radicular pain down the right leg, espeically with walking. having difficulty urinating, reports burning this morning, but urinated with out issue overnight. Recently bladder scanned for ~320. Cough has decreased. Review of Systems Review of Systems: All systems reviewed & are unremarkable except as noted in Subjective Physical Exam Physical Exam: General: lying in bed, appears much better than yesterday, NAD, VS as above Resp: normal respiratory effort, no wheezing today, cough is improved CV: RRR, no murmur, BACK: LSO brace in place Extremities: Moves all extremities, trace b/l LE edema Neuro: A&O x3, Results & Data Results & Data Vital Signs (Past 12 Hours) Vital Signs Temp Pulse Resp BP Pulse Ox O2 Del Method 11/21/23 07:48 36.7 C 75 16 168/89 H 94 Room Air 11/21/23 07:20 Room Air Laboratory Results INR reviewed PG Care Time/CCT Total # of Minutes Spent Total Time Spent with Patient: Total time spent is greater than 50% in coordination of care (as documented) at patient's floor/unit and/or counseling patient: Coding Level of Care Code 89319 SUB INP/OBS CARE 3/50MIN Diagnoses Fall W19.XXXA Chronic obstructive pulmonary disease, unspecified COPD type J44.9 COPD type: unspecified COPD Closed compression fracture of L4 vertebra S32.040A H/O deep venous thrombosis Z86.718 Pure hypercholesterolemia E78.00 Hyperlipidemia type: pure hypercholesterolemia BPH (benign prostatic hyperplasia) N40.0 Aortic stenosis, severe I35.0 (2) COPD (chronic obstructive pulmonary disease) COPD type: unspecified COPD Qualified Code(s): J44.9 - Chronic obstructive pulmonary disease, unspecified (5) Hyperlipidemia Hyperlipidemia type: pure hypercholesterolemia Qualified Code(s): E78.00 - Pure hypercholesterolemia, unspecified
[2023-11-21] MEDS: TAMSULOSIN HCL 0.4 MG CAP PO ONE (14:00)
[2023-11-21 15:54] LABS: Appearance Urine Clear (Clear); Bacteria Urine Automated Negative (Negative); Bilirubin Urine Negative (Negative); Blood Urine 3+ (Negative); Color Urine Orange; Epithelial Cell Urine Auto 0-5 /lpf (0-5); Glucose Urine UA Negative (Negative); Ketones Urine Negative (Negative); Leukocyte Esterase Urine Negative (Negative); Nitrite Urine Negative (Negative); Protein Urine Negative (Negative); RBC Urine Automated >30 /hpf (0-4); Specific Gravity Urine 1.013 (1.000-1.030); Urobilinogen Urine Negative (Negative)
[2023-11-21] MEDS: GABAPENTIN 100 MG CAP PO SCH (16:10)
[2023-11-21] MEDS: WARFARIN SOD 7.5 MG TAB PO SCH (16:39)
[2023-11-22 07:15] LABS: BUN Creatinine Ratio 41.3 (10-20); Calcium 8.9 mg/dl (8.6-10.3); Creatinine Clr Calc Pharmacy 93.2 ml/min; Est GFR (African American) 104.1 ml/min; Est GFR (Non-African American) 89.9 ml/min; Potassium 4.5 mmol/L (3.5-5.1)
[2023-11-22 07:51] LABS: INR 2.6 (0.9-1.1)
[2023-11-22] MEDS: dexAMETHasone 4 MG in SYRINGE 0 ML IV SCH (08:13)
[2023-11-22] MEDS: TAMSULOSIN HCL 0.4 MG CAP PO SCH (08:14)
--- NOTE | 2023-11-22 09:11 | Hospitalist Progress Note ---
Date of Service November 22, 2023 Assessment & Plan (1) Fall: Plan: Patient sustained a ground-level fall on 11/18; recurrent falls in the setting of recent back injury - No head strike, LOC, dizziness/lightheadedness prior to fall, or tripping - Has been seen in ED on 11/[address] Carlson --> recommended brace Head CT - no acute intracranial findings CXR - no acute findings Bilateral pelvic x-ray revealed no acute abnormalities Ortho spine consulted (Josh) - MRI - L4 Compression fracture, moderate foraminal but no significant central stenosis - Recommend lumbosacral brace Pain control - Tylenol 1000mg q8 - Lidocaine patch - Continue Gabapentin 200mg TID - oxycodone 5-10mg q6h prn - Dexamethasone started for COPD exacerbation but also back pain PT/OT --> recommending rehab, case management following Orthotics consult for LSO brace (2) COPD (chronic obstructive pulmonary disease): Plan: COPD exacerbation Continue home inhaler -Increased sputum production and wheezing suspect exacerbation -ProCal negative -Dexamethasone 4mg BID --> will transition to daily 11/21 Now on room air, cough decreased (3) Closed compression fracture of L4 vertebra: Plan: Patient first noticed lower back/leg pain on Thursday 11/09 Chiropractor manipulation on Saturday 11/11 A/P CT on 11/13 noted mild acute L4 compression deformity (4) H/O deep venous thrombosis: Plan: On warfarin, pt reports goal 2-3, managed by PCP. - patient reports normally well-controlled - home reigment SuWeSa 7.5mg, MoTuFr 10mg, no dose Supratherapeutic INR at 5.3 on arrival - INR 2.5 , is normally his day to hold warfarin, but will give 7.5mg today given held prior day -11/20 INR therapuetic 2.3, will continue 7.5 mg daily -11/21 INR 2.6, no change in management Monitor daily PT/INR (5) Hyperlipidemia: Plan: Continue atorvastatin (6) BPH (benign prostatic hyperplasia): Plan: Continue finasteride Continue flomax daily Hx of bladder stones, bladder stones mentioned on CT A/P on arrival Follows with Dr. Arce Episode of retention 2/28 - straight cathed, UA without signs of infection, blood likely from Cath 3/ - struggling with urge and burning this afternoon. will add flomax. Required straight cath- UA without infection overnight 3 waterman catheter placed. Recommend continue waterman, outpatient Urology follow up (7) Aortic stenosis, severe: Plan: Chronic; noted Plan Disposition: continued inpatient stay, pending rehab, CM following VTE PPx: On warfarin Admission and Anticipated Discharge Date Admission Date: November 18, 2023 Supervising Physician Co-Signing Physician Notes Attending Attestation - Chart reviewed, care plan d/w TANIKA Edmond. I agree with the dougherty components of her documentation. Rodrick Lomeli MD Subjective Sitting up in the chair Back pain improved with oxycodone reports hx of bladder stones, reports follows with Dr. Arce Reports that hey could feel stones on shaft of penis yesterday Review of Systems Review of Systems: All systems reviewed & are unremarkable except as noted in Subjective Physical Exam Physical Exam: General: sitting up to the chair, NAD, VS as above Resp: normal respiratory effort, no wheezing today, cough is improved CV: RRR, no murmur, BACK: LSO brace in place Extremities: Moves all extremities Results & Data Results & Data Vital Signs (Past 12 Hours) Vital Signs Temp Pulse Resp BP Pulse Ox O2 Del Method 11/22/23 07:36 36.5 C 77 16 154/77 H 93 Room Air 11/21/23 22:28 36.6 C 80 19 129/74 99 Room Air 11/21/23 21:30 Room Air Laboratory Results INR reviewed PG Care Time/CCT Total # of Minutes Spent Total Time Spent with Patient: Total time spent is greater than 50% in coordination of care (as documented) at patient's floor/unit and/or counseling patient: Coding Level of Care Code 02111 SUB INP/OBS CARE 3/50MIN Diagnoses Fall W19.XXXA Chronic obstructive pulmonary disease, unspecified COPD type J44.9 COPD type: unspecified COPD Closed compression fracture of L4 vertebra S32.040A H/O deep venous thrombosis Z86.718 Pure hypercholesterolemia E78.00 Hyperlipidemia type: pure hypercholesterolemia BPH (benign prostatic hyperplasia) N40.0 Aortic stenosis, severe I35.0 (2) COPD (chronic obstructive pulmonary disease) COPD type: unspecified COPD Qualified Code(s): J44.9 - Chronic obstructive pulmonary disease, unspecified (5) Hyperlipidemia Hyperlipidemia type: pure hypercholesterolemia Qualified Code(s): E78.00 - Pure hypercholesterolemia, unspecified
[2023-11-23 07:44] LABS: INR 2.6 (0.9-1.1); Prothrombin Time 27.1 Seconds (9.0-12.0)
--- NOTE | 2023-11-23 13:02 | Hospitalist Progress Note ---
Date of Service November 23, 2023 Assessment & Plan (1) Fall: Plan: Patient sustained a ground-level fall on 11/18; recurrent falls in the setting of recent back injury - No head strike, LOC, dizziness/lightheadedness prior to fall, or tripping - Has been seen in ED on 11/[address] Carlson --> recommended brace Head CT - no acute intracranial findings CXR - no acute findings Bilateral pelvic x-ray revealed no acute abnormalities Ortho spine consulted (Josh) - MRI - L4 Compression fracture, moderate foraminal but no significant central stenosis - Recommend lumbosacral brace Pain control - Tylenol 1000mg q8 - Lidocaine patch - Continue Gabapentin 200mg TID - oxycodone 5-10mg q6h prn - Dexamethasone started for COPD exacerbation but also back pain PT/OT --> recommending rehab, case management following Orthotics consult for LSO brace (2) COPD (chronic obstructive pulmonary disease): Plan: COPD exacerbation Continue home inhaler -Increased sputum production and wheezing suspect exacerbation -ProCal negative -Dexamethasone 4mg BID --> will transition to daily 11/21 Now on room air, cough decreased (3) Closed compression fracture of L4 vertebra: Plan: Patient first noticed lower back/leg pain on Thursday 11/09 Chiropractor manipulation on Saturday 11/11 A/P CT on 11/13 noted mild acute L4 compression deformity (4) H/O deep venous thrombosis: Plan: On warfarin, pt reports goal 2-3, managed by PCP. - patient reports normally well-controlled - home regiment SuWeSa 7.5mg, MoTuFr 10mg, no dose Supratherapeutic INR at 5.3 on arrival - INR 2.5 , is normally his day to hold warfarin, but will give 7.5mg today given held prior day -11/20 INR therapuetic 2.3, will continue 7.5 mg daily -11/21 INR 2.6, no change in management -11/22 INR 2.6 Continue to Monitor daily PT/INR (5) Hyperlipidemia: Plan: Continue atorvastatin (6) BPH (benign prostatic hyperplasia): Plan: Continue finasteride Continue flomax daily Hx of bladder stones, bladder stones mentioned on CT A/P on arrival Follows with Dr. Arce Episode of retention 11/19 - straight cathed, UA without signs of infection, blood likely from Cath 11/20 - struggling with urge and burning this afternoon. will add flomax. Required straight cath- UA without infection overnight 11/20 waterman catheter placed. Recommend continue waterman, outpatient Urology follow up (7) Aortic stenosis, severe: Plan: Chronic; noted Plan Disposition: continued inpatient stay, pending rehab, CM following VTE PPx: On warfarin Admission and Anticipated Discharge Date Admission Date: November 18, 2023 Supervising Physician Co-Signing Physician Notes Attending Attestation - Chart reviewed, care plan d/w TANIKA Edmond. I agree with the dougherty components of her documentation. Rodrick Lomeli MD Subjective Patient sitting in bed, reports difficulty getting comfortable. Reports some pain and tingling down the right leg. Does get some improvement with the oxycodone. Urinary catheter still in place, denies pain cough continues to improve, feels like his close to his baseline. asked patient if he would like me to update any family members, and he declined. Review of Systems Review of Systems: All systems reviewed & are unremarkable except as noted in Subjective Physical Exam Physical Exam: General: Sitting up in the bed, NAD, VS as above Resp: normal respiratory effort, no wheezing today, cough is improved CV: RRR, no murmur, BACK: LSO brace in place Extremities: Moves all extremities Results & Data Results & Data Vital Signs (Past 12 Hours) Vital Signs Temp Pulse Resp BP Pulse Ox O2 Del Method 11/23/23 08:49 93 Room Air 11/23/23 08:03 36.6 C 80 16 134/70 91 Room Air 11/23/23 08:00 Room Air Laboratory Results Coagulation studies reviewed PG Care Time/CCT Total # of Minutes Spent Total Time Spent with Patient: Total time spent is greater than 50% in coordination of care (as documented) at patient's floor/unit and/or counseling patient: Coding Level of Care Code 97566 SUB INP/OBS CARE MIN Diagnoses Fall W19.XXXA Chronic obstructive pulmonary disease, unspecified COPD type J44.9 COPD type: unspecified COPD Closed compression fracture of L4 vertebra S32.040A H/O deep venous thrombosis Z86.718 Pure hypercholesterolemia E78.00 Hyperlipidemia type: pure hypercholesterolemia BPH (benign prostatic hyperplasia) N40.0 Aortic stenosis, severe I35.0 (2) COPD (chronic obstructive pulmonary disease) COPD type: unspecified COPD Qualified Code(s): J44.9 - Chronic obstructive pulmonary disease, unspecified (5) Hyperlipidemia Hyperlipidemia type: pure hypercholesterolemia Qualified Code(s): E78.00 - Pure hypercholesterolemia, unspecified
[2023-11-23] MEDS: CALCIUM CARBONATE 500 MG CHEWABLE TAB PO PRN (19:24)
[2023-11-23] MEDS: guaiFENesin 600 MG TABCR PO PRN (20:24)
[2023-11-23] MEDS: ALUMINUM/MAGNESIUM SUSP 30 ML UDC ONE (23:38)
[2023-11-23] MEDS: ALUMINUM/MAGNESIUM SUSP 30 ML UDC PO STA (23:41)
[2023-11-24 06:34] LABS: INR 3.2 (0.9-1.1)
--- NOTE | 2023-11-24 12:16 | Hospitalist Progress Note ---
Date of Service November 24, 2023 Assessment & Plan (1) Fall: Plan: Patient sustained a ground-level fall on 11/18; recurrent falls in the setting of recent back injury - No head strike, LOC, dizziness/lightheadedness prior to fall, or tripping - Has been seen in ED on 11/[address] Carlson --> recommended brace Head CT - no acute intracranial findings CXR - no acute findings Bilateral pelvic x-ray revealed no acute abnormalities Ortho spine consulted (Josh) - MRI - L4 Compression fracture, moderate foraminal but no significant central stenosis - Recommend lumbosacral brace Pain control - Tylenol 1000mg q8 - Lidocaine patch - Continue Gabapentin 200mg TID - oxycodone 5-10mg q6h prn - Dexamethasone started for COPD exacerbation but also back pain - Calcitonin qAM PT/OT --> recommending rehab, case management following Orthotics consult for LSO brace 11/23 patient still complaining of pain. Will add calcitonin and check Vit D (2) COPD (chronic obstructive pulmonary disease): Plan: COPD exacerbation Continue home inhaler -Increased sputum production and wheezing suspect exacerbation -ProCal negative -Dexamethasone 4mg BID --> will transition to daily 11/21 Now on room air, cough decreased (3) H/O deep venous thrombosis: Plan: On warfarin, pt reports goal 2-3, managed by PCP. - patient reports normally well-controlled - home regiment SuWeSa 7.5mg, MoTuFr 10mg, no dose Supratherapeutic INR at 5.3 on arrival - INR 2.5 , is normally his day to hold warfarin, but will give 7.5mg today given held prior day -11/20 INR therapuetic 2.3, will continue 7.5 mg daily -11/21 INR 2.6, no change in management -11/22 INR 2.6 -11/23 INR 3.2 --> MWF 5mg, SSTR 7.5mg (7.5mg weekly reduction, ~14% reduction) Continue to Monitor daily PT/INR (4) Closed compression fracture of L4 vertebra: Plan: Patient first noticed lower back/leg pain on Thursday 11/09 Chiropractor manipulation on Saturday 11/11 A/P CT on 11/13 noted mild acute L4 compression deformity Vit D AM labs (5) Hyperlipidemia: Plan: Continue atorvastatin (6) BPH (benign prostatic hyperplasia): Plan: Continue finasteride Continue flomax daily Hx of bladder stones, bladder stones mentioned on CT A/P on arrival Follows with Dr. Arce Episode of retention 11/19 - straight cathed, UA without signs of infection, blood likely from Cath 11/20 - struggling with urge and burning this afternoon. will add flomax. Required straight cath- UA without infection overnight 11/20 waterman catheter placed. Recommend continue waterman, outpatient Urology follow up (7) Aortic stenosis, severe: Plan: Chronic; noted Plan Disposition: continued inpatient stay, medically stable, awaiting placement VTE PPx: On warfarin Admission and Anticipated Discharge Date Admission Date: November 18, 2023 Supervising Physician Co-Signing Physician Notes Attending Attestation - Chart reviewed, care plan d/w TANIKA Edmond. I agree with the dougherty components of her documentation. Rodrick Lomeli MD Subjective patient sitting up in the chair. Main concern is his leg pain on the right side. When working with therapy states he got up to a 7 or an 8. Does get some relief with the Oxycodone feels as his cough has gotten better Review of Systems Review of Systems: All systems reviewed & are unremarkable except as noted in Subjective Physical Exam Physical Exam: General: Sitting up in the chair, NAD, VS as above Resp: normal respiratory effort, no wheezing today, cough is improved CV: RRR, no murmur, BACK: LSO brace in place Extremities: Moves all extremities Results & Data Results & Data Vital Signs (Past 12 Hours) Vital Signs Temp Pulse Resp BP Pulse Ox O2 Del Method 11/24/23 11:27 36.6 C 74 14 140/78 93 Room Air 11/24/23 08:00 Room Air 11/24/23 07:41 36.4 C L 72 14 138/80 93 Room Air Laboratory Results coagulation studies reviewed PG Care Time/CCT Total # of Minutes Spent Total Time Spent with Patient: Total time spent is greater than 50% in coordination of care (as documented) at patient's floor/unit and/or counseling patient: Coding Level of Care Code 29638 SUB INP/OBS CARE 235MIN Diagnoses Fall W19.XXXA Chronic obstructive pulmonary disease, unspecified COPD type J44.9 COPD type: unspecified COPD H/O deep venous thrombosis Z86.718 Closed compression fracture of L4 vertebra S32.040A Pure hypercholesterolemia E78.00 Hyperlipidemia type: pure hypercholesterolemia BPH (benign prostatic hyperplasia) N40.0 Aortic stenosis, severe I35.0 (2) COPD (chronic obstructive pulmonary disease) COPD type: unspecified COPD Qualified Code(s): J44.9 - Chronic obstructive pulmonary disease, unspecified (5) Hyperlipidemia Hyperlipidemia type: pure hypercholesterolemia Qualified Code(s): E78.00 - Pure hypercholesterolemia, unspecified
[2023-11-24] MEDS: WARFARIN SOD 5 MG TAB PO SCH (16:26)
[2023-11-24] MEDS: CALCITONIN SALMON NA 200 IU/AC 3.7 ML BTL SCH (18:17)
[2023-11-25] MEDS: ALUMINUM/MAGNESIUM SUSP 30 ML UDC PO ONE (00:50)
[2023-11-25] MEDS: MELATONIN 3 MG TAB PO PRN (00:51)
[2023-11-25 08:04] LABS: INR 4.2 (0.9-1.1); Prothrombin Time 41.7 Seconds (9.0-12.0)
--- NOTE | 2023-11-25 09:31 | Hospitalist Progress Note ---
Date of Service November 25, 2023 Assessment & Plan (1) Fall: Plan: Patient sustained a ground-level fall on 11/18; recurrent falls in the setting of recent back injury - No head strike, LOC, dizziness/lightheadedness prior to fall, or tripping - Has been seen in ED on 11/[address] Carlson --> recommended brace Head CT - no acute intracranial findings CXR - no acute findings Bilateral pelvic x-ray revealed no acute abnormalities Ortho spine consulted (Dr Moreno) - MRI - L4 Compression fracture, moderate foraminal but no significant central stenosis - Recommend lumbosacral brace , in room Pain control - Tylenol 1gm Q8h, lidocaine patch, oxycodone 5-10mg as needed -- Dexamethasone for COPD exacerbation but also for back pain, calcitonin nasal spray added 11/24 -2 doses of calcitonin spray thus far. remains on oxycodone 5-10mg. Will increase gabapentin to 300mg TID for neuropathic/radiular type pain (noting MRI no significant central stenosis) -added colace PO BID, senna PO daily. Pt reports he is moving bowels, but reporting hard/having to squeeze. Monitor bowel movements, recommend continued ambulation. May need to increase further but +BS on exam/no pain at present Vitamin D level wnl 3.62 PT/OT consulted, recommend rehab -- patient agreeable CM following (2) COPD (chronic obstructive pulmonary disease): Plan: COPD exacerbation Continue home inhaler Patient reported increased sputum production and +wheezing on exam. Procal negative Dexamethasone 4mg IV BID transitioned to once daily on 11/21 and can plan to transition to PO tomorrow and taper Currently 96% on room air (3) H/O deep venous thrombosis: Plan: On warfarin, pt reports goal 2-3, managed by PCP. - patient reports normally well-controlled - home regiment SuWeSa 7.5mg, MoTuFr 10mg, no dose Supratherapeutic INR at 5.3 on arrival - INR 2.5 , is normally his day to hold warfarin, but will give 7.5mg today given held prior day -11/20 INR therapuetic 2.3, will continue 7.5 mg daily -11/21 INR 2.6, no change in management -11/22 INR 2.6 -11/23 INR 3.2 --> MWF 5mg, SSTR 7.5mg (7.5mg weekly reduction, ~14% reduction) 11/24 --> INR ELEVATED 4.2 today, holding warfarin per hold for INR >3.5 (given for yesterday INR 3.2) and monitor INR in AM. Would avoid Vitamin K for today -- may need further reduction pending repeat INR (4) Closed compression fracture of L4 vertebra: Plan: Patient first noticed lower back/leg pain on Thursday 11/09 Chiropractor manipulation on Saturday 11/11 A/P CT on 11/13 noted mild acute L4 compression deformity Vit D not deficient as above Calcitonin nasal spray, pain control, brace as outlined above and will be planning for rehab (5) Hyperlipidemia: Plan: Continue atorvastatin (6) BPH (benign prostatic hyperplasia): Plan: Does have hx bladder stones (mentioned on CTAP on arrival, follows w/ Dr Arce) Continues on finasteride Episode of urinary retention on 11/19, straight cath'd and UA w/o signs of infection (blood likely from cath) --> burning with urination and req again straight cath (UA again without infection) Flomax started 11/21 (not on at baseline) and continued --will need new rx at discharge Fitzpatrick placed on 11/20 --> recommend keeping in place and arranging for urology outpt for voiding trial. UOP 1.15ml/kg/hr and acceptable -- monitor (7) Aortic stenosis, severe: Plan: Chronic; noted No significant volume overload at present but will need to monitor Plan DVT proph: remains on coumadin for above, INR supratherapeutic Disposition: continued inpatient stay waiting for rehab per therapy evaluations --> CM to follow Admission and Anticipated Discharge Date Admission Date: November 18, 2023 Supervising Physician Co-Signing Physician Notes The patient was not seen by me. The chart was reviewed. Case discussed with TANIKA Kincaid. Agree with assessment and plan Subjective Eval this morning, ambulating back from the bathroom. "Not doing too great" when asked about pain. Pain from lower back to his right hip down to the level of the knee. Moving bowels, but reporting having to push. Will adjust pain/bowel regimen and monitor. Discussed rehab -- he reports he is agreeable, cannot go home in the current state of affairs. Breathing stable, not much sputum production. GOt 2 doses of calcitonin spray, not having pain reproducible to his spine today as he had reported days prior. No fever/chills. Questions/concerns addressed at this time. Physical Exam Physical Exam: General: 83yo male walking back from the bathroom with aide with walker, NAD but mildly uncomfortable HEENT: head atraumatic, normocephalic, mmm, trachea midline Resp: even/unlabored,diminished in the bases, faint exp wheeze, on room air CV: RRR, no significant m/r/g, no pitting edema/calf tenderness GI: +BS, slight distension but nontender MSK/Neuro: LSO brace in chair, no spinal tenderness, dorsiflexion/plantar flexion intact +radiculopathy from R hip to R medial knee Psych: AOx3, cooperative Results & Data Results & Data Vital Signs (Past 12 Hours) Vital Signs Temp Pulse Pulse Resp BP Pulse Ox O2 Del Method 11/25/23 07:16 36.4 C L 65 16 149/85 H 96 Room Air 11/24/23 22:11 36.5 C 85 20 128/71 96 Room Air Laboratory Results 11/25/23 Range/Units 06:43 PT 41.7 H (9.0-12.0) Seconds INR 4.2 H (0.9-1.1) 25-OH Vitamin D Total 36.2 (30-100) ng/ml PG Care Time/CCT Total # of Minutes Spent Total Time Spent with Patient: Total time spent is greater than 50% in coordination of care (as documented) at patient's floor/unit and/or counseling patient: Coding Level of Care Code 61171 SUB INP/OBS CARE 3/50MIN Diagnoses Fall W19.XXXA Chronic obstructive pulmonary disease, unspecified COPD type J44.9 COPD type: unspecified COPD H/O deep venous thrombosis Z86.718 Closed compression fracture of L4 vertebra S32.040A Pure hypercholesterolemia E78.00 Hyperlipidemia type: pure hypercholesterolemia BPH (benign prostatic hyperplasia) N40.0 Aortic stenosis, severe I35.0 (2) COPD (chronic obstructive pulmonary disease) COPD type: unspecified COPD Qualified Code(s): J44.9 - Chronic obstructive pulmonary disease, unspecified (5) Hyperlipidemia Hyperlipidemia type: pure hypercholesterolemia Qualified Code(s): E78.00 - Pure hypercholesterolemia, unspecified
[2023-11-25 10:05] LABS: Albumin Globulin Ratio 1.3 (0.9-2); Albumin Level 3.3 gm/dl (3.4-5.0); BUN Creatinine Ratio 39.7 (10-20); Bilirubin,Total 0.6 mg/dl (0.2-1.0); Calcium 8.6 mg/dl (8.6-10.3); Creatinine Clr Calc Pharmacy 86.4 ml/min; Est GFR (African American) 100.9 ml/min; Est GFR (Non-African American) 87.1 ml/min; Globulin 2.5 gm/dl (2.5-4.0); Potassium 4.9 mmol/L (3.5-5.1); Total Protein 5.8 gm/dl (6.0-8.3)
[2023-11-25] MEDS: DOCUSATE SODIUM 100 MG CAP PO SCH (11:27)
[2023-11-25] MEDS: SENNA 8.6 MG TAB PO SCH (11:27)
[2023-11-25] MEDS: GABAPENTIN 300 MG CAP PO SCH (13:39)
[2023-11-25 20:52] LABS: Appearance Urine Clear (Clear); Bacteria Urine Automated Negative (Negative); Bilirubin Urine Negative (Negative); Blood Urine 3+ (Negative); Color Urine Dark Yellow; Epithelial Cell Urine Auto 20-30 /lpf (0-5); Glucose Urine UA Negative (Negative); Ketones Urine Trace (Negative); Leukocyte Esterase Urine 1+ (Negative); Nitrite Urine Negative (Negative); Protein Urine 1+ (Negative); RBC Urine Automated >30 /hpf (0-4); Specific Gravity Urine 1.029 (1.000-1.030); Urobilinogen Urine Negative (Negative)
[2023-11-26 06:38] LABS: Hematocrit (blood only) 49.2 % (42.0-52.0); Mean Corpuscular Hemoglobin 31.5 pg (25.0-34.0); Mean Corpuscular Hgb Conc 34.6 g/dL (32.0-36.0); Mean Corpuscular Volume 91.3 fL (80.0-100.0); Mean Platelet Volume 9.2 fL (9.4-12.4); Platelet Count 332 K/uL (130-400); RDW Coefficient of Variation 13.2 % (11.5-14.5); RDW Standard Deviation 44.2 fL (36.4-46.3); Red Blood Count 5.39 M/uL (4.70-6.10); White Blood Count 12.43 K/ul (4.8-10.8)
[2023-11-26 06:39] LABS: Magnesium 1.9 mg/dl (1.7-2.4); Potassium 5.1 mmol/L (3.5-5.1)
[2023-11-26 06:44] LABS: Creatinine Clr Calc Pharmacy 78.3 ml/min; Est GFR (African American) 96.9 ml/min; Est GFR (Non-African American) 83.6 ml/min
[2023-11-26 07:32] LABS: Prothrombin Time 30.7 Seconds (9.0-12.0)
--- NOTE | 2023-11-26 08:23 | Hospitalist Progress Note ---
Date of Service November 26, 2023 Assessment & Plan (1) Fall: Plan: Patient sustained a ground-level fall on 11/18; recurrent falls in the setting of recent back injury - No head strike, LOC, dizziness/lightheadedness prior to fall, or tripping - Has been seen in ED on 11/[address] Carlson --> recommended brace Head CT - no acute intracranial findings CXR - no acute findings Bilateral pelvic x-ray revealed no acute abnormalities Ortho spine consulted (Dr Moreno) - MRI - L4 Compression fracture, moderate foraminal but no significant central stenosis - Recommend lumbosacral brace , in room Pain control - Tylenol 1gm Q8h, lidocaine patch, oxycodone 5-10mg as needed Dexamethasone for COPD exacerbation but also for back pain, calcitonin nasal spray added 3/5 2 doses of calcitonin spray thus far. remains on oxycodone 5-10mg. Increased gabapentin to 300mg TID for neuropathic/radicular type pain (noting MRI no significant central stenosis however does have some disc bulging mentioned more on the right in region of reported symptoms) -added colace PO BID, senna PO daily -- moving bowels Vitamin D level wnl 3.62 PT/OT consulted, recommend rehab -- patient agreeable CM following 3/ Pain controlled but ongoing. Switching to PO prednisone for AM to complete 5 day course for COPD exacerbation as below given no further wheezing on exam but diminished in the bases, on room air but increased LE swelling. Does have hx mod-severe aortic stenosis on prior ECHO 2022 and will give lasix 40mg PO x 1 and monitor response Could consider pain management for injection but difficult given he is on coumadin for hx DVT (see below) --> Will message Dr Carlson to see about seeing patient while inpatient/reviewing films given radicular symptoms on the right to level of the knee given mention of disc bulge in this region --> Dr Carlson looked at MRI, ordering xray standing films for further evaluation and consult placed/will see him in the morning Continue gabapentin 300mg TID for now, oxycodone and topicals as needed Continue PT/OT and planning for rehab at discharge - referral to [facility] pending (will have bed available on Friday, will know more tomorrow) (2) COPD (chronic obstructive pulmonary disease): Plan: COPD exacerbation Continue home inhaler Patient reported increased sputum production and +wheezing on exam. Procal negative Dexamethasone 4mg IV BID transitioned to once daily on 11/21 and transitioned to 40mg PO prednisone for tomorrow for 5 day course and can taper if needed Currently 95% on RA Lasix 40mg PO x 1 as above, monitor response (3) H/O deep venous thrombosis: Plan: On warfarin, pt reports goal 2-3, managed by PCP. - patient reports normally well-controlled - home regiment SuWeSa 7.5mg, MoTuFr 10mg, no dose Supratherapeutic INR at 5.3 on arrival - INR 2.5 , is normally his day to hold warfarin, but will give 7.5mg today given held prior day -11/20 INR therapuetic 2.3, will continue 7.5 mg daily -11/21 INR 2.6, no change in management -11/22 INR 2.6 -11/23 INR 3.2 --> MWF 5mg, SSTR 7.5mg (7.5mg weekly reduction, ~14% reduction) 11/24 INR elevated to 4.2, coumadin held in afternoon but was given on 11/23 with INR of 3.2 given hold parameters to hold only if INR >3.5 11/25 -- INR 3.0 on AM labs, coumadin held day prior and to continue for today but if elevated on AM labs would consider further reduction (4) Closed compression fracture of L4 vertebra: Plan: Patient first noticed lower back/leg pain on Thursday 11/09 Chiropractor manipulation on Saturday 11/11 A/P CT on 11/13 noted mild acute L4 compression deformity Vit D not deficient as above Calcitonin nasal spray, pain control, brace as outlined above and will be planning for rehab Dr Carlson to see in AM ( standing films to be ordered for further eval by Dr Carlson for later today ) (5) Hyperlipidemia: Plan: Continue atorvastatin (6) BPH (benign prostatic hyperplasia): Plan: Does have hx bladder stones (mentioned on CTAP on arrival, follows w/ Dr Arce) Continues on finasteride Episode of urinary retention on 11/19, straight cath'd and UA w/o signs of infection (blood likely from cath) --> burning with urination and req again straight cath (UA again without infection) Flomax started / (not on at baseline) and continued --will need new rx at discharge Fitzpatrick placed on 11/20 --> recommend keeping in place and arranging for urology outpt for voiding trial. UOP 1.22ml/kg/hr and acceptable -- monitor (7) Aortic stenosis, severe: Plan: Chronic; noted Appears w/ slightly more edema today, ?2nd to steroids --> lasix 40mg PO x 1 and monitor response. No hypoxia but increased LE edema (INr therapeutic as above, supratherapeutic prior and do not suspect from DVT) Check weights/I&Os Plan DVT proph: remains on coumadin for above, INR in range at present time Disposition: continued inpatient stay waiting for rehab per therapy evaluations --> CM to follow and possible bed [facility] this weekend Dr Carlson to see on 11/26 for further eval, consult placed for 2nd opinion Admission and Anticipated Discharge Date Admission Date: November 18, 2023 Supervising Physician Co-Signing Physician Notes The patient was not seen by me. The chart was reviewed. Case discussed with TANIKA Kincaid. Agree with assessment and plan Subjective Eval this morning, doing alright but still having significant ongoing pain. Gabapentin increased day prior and just got 10mg oxycodone. Reports moving bowels yesterday but not today, abdomen less distended/nontender. Does have some increased LE edema today on exam - reports baseline has puffiness to his feet. Discussed given valvular heart disease and likely fluid retention from steroids and will give small dose of lasix and monitor response. Breathing stable/no further wheezing, transition to prednisone PO for AM to complete 5 day course for exacerbation. Continues to need rehab at [facility]. He reports he thinks he heard Dr Carlson's name mentioned but was seen by Dr Lombardo inpatient.Prior note reports had been referred to Dr Carlson and will see if able to review films/patient [facility] for ongoing symptoms on the right side. No fever/chills, chest pain. Physical Exam Physical Exam: General: 83yo male sitting up in chair, NAD but mildly uncomfortable to his right leg with ambulation/movement HEENT: head atraumatic, normocephalic, mmm, trachea midline Resp: even/unlabored,diminished in the bases, faint exp wheeze, on room air CV: RRR, +systolic murmur, +b/l LE edema--> slightly worse edema today compared to yesterday venous stasis changes venous stasis changes GI: +BS, slight distension but nontender MSK/Neuro: LSO brace in chair, no spinal tenderness, dorsiflexion/plantar flexion intact +radiculopathy from R hip to R medial knee, slightly decreased sensation to l ight touch slightly decreased flexion at the hip/knee on the right compared to the left Psych: AOx3, cooperative Results & Data Results & Data Vital Signs (Past 12 Hours) Vital Signs Temp Pulse Resp BP Pulse Ox O2 Del Method 11/26/23 07:35 36.4 C L 70 16 138/75 95 Room Air 11/26/23 07:20 Room Air 11/25/23 20:45 Room Air Laboratory Results 11/26/23 11/25/23 11/24/23 Range/Units 05:36 20:35 05:47 WBC 12.43 H (4.8-10.8) K/ul RBC 5.39 (4.70-6.10) M/uL Hgb 17.0 (14.0-18.0) g/dl Hct 49.2 (42.0-52.0) % MCV 91.3 (80.0-100.0) fL MCH 31.5 (25.0-34.0) pg MCHC 34.6 (32.0-36.0) g/dL RDW Std Deviation 44.2 (36.4-46.3) fL RDW Coeff of Mu 13.2 (11.5-14.5) % Plt Count 332 (130-400) K/uL MPV 9.2 L (9.4-12.4) fL PT 30.7 H (9.0-12.0) Seconds INR 3.0 H (0.9-1.1) Sodium 135 L 135 L (136-145) mmol/L Potassium 5.1 4.9 (3.5-5.1) mmol/L Chloride 101 104 (98-107) mmol/L Carbon Dioxide 28 28 (21-32) mmol/L Anion Gap 6 3 (3-11) BUN 27 H 27 H (6-23) mg/dl Creatinine 0.75 0.68 (0.6-1.4) mg/dl Est Cr Clr Drug Dosing 78.3 86.4 ml/min Est GFR ( Amer) 96.9 100.9 ml/min Est GFR (Non-Af Amer) 83.6 87.1 ml/min BUN/Creatinine Ratio 36.0 H 39.7 H (10-20) Glucose 92 102 H (70-99(Fasting)) mg/dl Calcium 9.0 8.6 (8.6-10.3) mg/dl Magnesium 1.9 2.0 (1.7-2.4) mg/dl Total Bilirubin 0.6 (0.2-1.0) mg/dl AST 53 H (13-39) U/L ALT 76 H (7-52) U/L Alkaline Phosphatase 93 (34-104) U/L Total Protein 5.8 L (6.0-8.3) gm/dl Albumin 3.3 L (3.4-5.0) gm/dl Globulin 2.5 (2.5-4.0) gm/dl Albumin/Globulin Ratio 1.3 (0.9-2) Urine Color Dark Yellow Urine Appearance Clear (Clear) Urine pH 6.0 (4.5-7.5) Ur Specific Smilax 1.029 (1.000-1.030) Urine Protein 1+ H (Negative) Urine Glucose (UA) Negative (Negative) Urine Ketones Trace H (Negative) Urine Blood 3+ H (Negative) Urine Nitrite Negative (Negative) Urine Bilirubin Negative (Negative) Urine Urobilinogen Negative (Negative) Ur Leukocyte Esterase 1+ H (Negative) Urine WBC (Auto) 1-5 (0-5) /hpf Urine RBC (Auto) >30 H (0-4) /hpf U Hyaline Cast (Auto) 1-5 (0-5) /lpf U Epithel Cells (Auto) 20-30 H (0-5) /lpf Urine Bacteria (Auto) Negative (Negative) PG Care Time/CCT Total # of Minutes Spent Total Time Spent with Patient: Total time spent is greater than 50% in coordination of care (as documented) at patient's floor/unit and/or counseling patient: Coding Level of Care Code 04558 SUB INP/OBS CARE 3/50MIN Diagnoses Fall W19.XXXA Chronic obstructive pulmonary disease, unspecified COPD type J44.9 COPD type: unspecified COPD H/O deep venous thrombosis Z86.718 Closed compression fracture of L4 vertebra S32.040A Pure hypercholesterolemia E78.00 Hyperlipidemia type: pure hypercholesterolemia BPH (benign prostatic hyperplasia) N40.0 Aortic stenosis, severe I35.0 (2) COPD (chronic obstructive pulmonary disease) COPD type: unspecified COPD Qualified Code(s): J44.9 - Chronic obstructive pulmonary disease, unspecified (5) Hyperlipidemia Hyperlipidemia type: pure hypercholesterolemia Qualified Code(s): E78.00 - Pure hypercholesterolemia, unspecified
[2023-11-26] MEDS: FUROSEMIDE 40 MG TAB PO ONE (11:50)
--- NOTE | 2023-11-26 17:12 | XRay Report ---
LUMBAR SPINE 3 VIEWS CLINICAL HISTORY: Low back pain. FINDINGS: 3 standing views of the lumbar spine are compared to study dated 08/27/2011. Correlation is made with MRI of the lumbar spine dated 11/18/2023. The skeletal structures are osteopenic. There is a subacute inferior endplate compression fracture of L4 with mild loss of height. This is similar to t he 11/18/2023 MRI. Vertebral body height is otherwise maintained throughout the lumbar spine. There is minimal anterolisthesis at L5-S1. Alignment is otherwise preserved. Anterior and lateral marginal os teophytes are seen throughout. The transverse and spinous processes appear intact. There is mild mult ilevel degenerative disc space narrowing. Facet arthropathy is seen in the [id number] lumbar region . The imaged bony pelvis appears intact. Degenerative sclerosis is noted in the sacroiliac joints. Ch olecystectomy clips and an IVC filter are in place. There is no bowel obstruction. Advanced atheroscl erotic calcification is noted in the abdominal aorta. Bladder calculi are seen in the pelvis. IMPRESSION: 1. A subacute inferior endplate compression deformity of L4 is similar to previous. 2. Osteopenia and spondylotic change as above. 3. Bladder calculi are noted. Dictated: 11/26/2023 3:35 PM Transcribed: 11/26/2023 3:50 PM Shane [id number] [email or web address] Electronically signed by: Anthony Beyer M.D. 11/26/2023 5:11 PM
[2023-11-27 07:38] LABS: Hematocrit (blood only) 52.3 % (42.0-52.0); Hemoglobin 17.6 g/dl (14.0-18.0); Mean Corpuscular Hgb Conc 33.7 g/dL (32.0-36.0); Mean Corpuscular Volume 92.2 fL (80.0-100.0); Mean Platelet Volume 9.1 fL (9.4-12.4); Platelet Count 348 K/uL (130-400); RDW Coefficient of Variation 13.3 % (11.5-14.5); RDW Standard Deviation 45.2 fL (36.4-46.3); Red Blood Count 5.67 M/uL (4.70-6.10); White Blood Count 14.78 K/ul (4.8-10.8)
[2023-11-27 08:01] LABS: BUN Creatinine Ratio 36.7 (10-20); Calcium 9.2 mg/dl (8.6-10.3); Creatinine Clr Calc Pharmacy 65.3 ml/min; Est GFR (African American) 89.9 ml/min; Est GFR (Non-African American) 77.6 ml/min; Potassium 4.5 mmol/L (3.5-5.1)
[2023-11-27] MEDS: predniSONE 20 MG TAB PO SCH (08:07)
[2023-11-27 08:09] LABS: INR 1.9 (0.9-1.1); Prothrombin Time 19.8 Seconds (9.0-12.0)
[2023-11-27 08:18] LABS: Thyroid Stimulating Hormone 5.927 uIu/ml (0.300-4.500)
--- NOTE | 2023-11-27 08:26 | Hospitalist Progress Note ---
Date of Service November 27, 2023 Assessment & Plan (1) Fall: Plan: Patient sustained a ground-level fall on 11/18; recurrent falls in the setting of recent back injury- No head strike, LOC, dizziness/lightheadedness prior to fall, or tripping Has been seen in ED on 11/[address] Carlson --> recommended brace Head CT - no acute intracranial findings CXR - no acute findings Bilateral pelvic x-ray revealed no acute abnormalities Ortho spine consulted (Dr Moreno) - MRI - L4 Compression fracture, moderate foraminal but no significant central stenosis - Recommend lumbosacral brace , in room Pain control: topical lidocaine patch, Tylenol, oxycodone 5-10mg. Calcitonin nasal spray Dexamethasone transitioned to PO prednisone for COPD exacerbation (see below) Gabapentin increased to 300mg TID Discussed with patient on 11/25 given ongoing pain/concerns for lumbar radiculopathy in region L3-L4/L4-L5 and discussed with Dr Carlson for eval today. Review of MRI and standing film/exam, concerns for need for intervention for ongoing symptoms/radiculopathy Patient's son will be in tomorrow and will be there for discussion with Dr Carlson for further recommendations On coumadin for hx DVT (has IVC filter in place), consult placed for anesthesia in case of need for surgery as well as pain management for consideration for injection if able to hold AC. Cards also consulted given his for clearance if needed (and repeat ECHO obtained, BNP not elevated) Additional lasix 40mg PO x 1 for today given edema/wt gain suspected from steroids in setting of and stable labs on repeat. Monitor in AM PT/OT consults recommending rehab ([facility] w/ bed this upcoming week possibly). CM following (2) COPD (chronic obstructive pulmonary disease): Plan: w/ exacerbation w/ reports of increased sputum/wheezing on exam prior. procal negative dexamethasone for back as above--> prednisone On room air continued on home meds lung exam stable, no further wheezing. on prednisone now as above, on room air (3) H/O deep venous thrombosis: Plan: On warfarin, pt reports goal 2-3, managed by PCP and typically well controlled Home regimen SuWeSa 7.5mg, MoTuFr 10mg, no dose Supratherapeutic INR at 5.3 on arrival, held coumadin and reduced to MWF 5mg, SSTR 7.5mg (7.5mg weekly reduction, ~14% reduction) INR 3.2 on 11/23 and coumadin given -- > repeat INR to 4.2 on 11/24 and held coumadin--> INR 3.0 and coumadin resumed but 1.9 on AM labs. Suspect back in range tomorrow and will monitor Rec consideration f/u [facility] clinic (4) Closed compression fracture of L4 vertebra: Plan: Patient first noticed lower back/leg pain on Thursday 11/09 Chiropractor manipulation on Saturday 11/11 A/P CT on 11/13 noted mild acute L4 compression deformity Vit D not deficient as above Calcitonin nasal spray, pain control, brace as outlined above and will be planning for rehab [facility] Carlson to see today -- see above, possible need for intervention but not ideal surgical candidate (5) Hyperlipidemia: Plan: Continue atorvastatin (6) BPH (benign prostatic hyperplasia): Plan: Does have hx bladder stones (mentioned on CTAP on arrival, follows w/ Dr Arce) Continues on finasteride Episode of urinary retention on 11/19, straight cath'd and UA w/o signs of infection (blood likely from cath) --> burning with urination and req again straight cath (UA again without infection) Flomax started 11/21 (not on at baseline) and continued --will need new rx at discharge Fitzpatrick placed on 11/20 --> recommend keeping in place and arranging for urology outpt for voiding trial. UOP acceptable -- monitor (7) Aortic stenosis, severe: Plan: Chronic; noted Appears w/ slightly more edema 11/25, ?2nd to steroids --> lasix 40mg PO x 1 w/ improvement and will repeat for today Repeat ECHO for possible surgery, BNP NOT elevated Check weights/I&Os Plan DVT proph: remains on coumadin for above Dr Carlson saw today, patient going to think about possible surgery vs injection (if able to hold his AC) and will discuss with Dr Carlson with son present 11/27. [facility]ual rehab [facility], possible bed at [facility] on Friday Admission and Anticipated Discharge Date Admission Date: November 18, 2023 Supervising Physician Co-Signing Physician Notes The patient was not seen by me. The chart was reviewed. Case discussed with TANIKA Kincaid. Agree with assessment and plan Subjective Evaluated this morning, sitting up in the chair. Reports has been up since around 1-2am and had to get into chair for relief. Ongoing R lower back/leg pain, was seen by Dr carlson this morning. Discussed possible injection and if benefit would be diagnostic for back as source but would need to hold anticoagulation. Does have IVC filter in place. Also discussed possible surgery if he is interested. He reports he is going to have his son come in tomorrow. He will continue to think about it today/further discuss with Dr carlson and son in AM. Will plan to consult anesthesia given higher risk given his aortic stenosis but also consult cardiology as well for possible clearance. Will also consult pain management for discussion about injection if that is decision taken. GIven lasix PO x 1 yesterday, LE edema about the same and will repeat. Fitzpatrick w/ clear yellow urine. Appetite fair, moved his bowels this morning. No fever/chills, no chest pain or increased shortness of breath. On room air Questions/concerns addressed at this time. Physical Exam Physical Exam: General: 83yo male sitting up in chair, NAD but mildly uncomfortable to his right leg with ambulation/movement HEENT: head atraumatic, normocephalic, mmm, trachea midline Resp: even/unlabored,diminished in the bases, faint exp wheeze, on room air CV: RRR, +systolic murmur, +b/l LE edema--> slightly better today but still present venous stasis changes venous stasis changes GI: +BS, less distension, nontender : yellow urine present in bag MSK/Neuro: LSO brace in chair, no spinal tenderness, dorsiflexion/plantar flexion intact +radiculopathy from R hip to R medial knee, slightly decreased sensation to light touch slightly decreased flexion at the hip/knee on the right compared to the left Psych: AOx3, cooperative Results & Data Results & Data Vital Signs (Past 12 Hours) Vital Signs Temp Pulse Resp BP Pulse Ox O2 Del Method 11/27/23 07:58 36.4 C L 78 16 114/71 93 Room Air 11/26/23 21:36 Room Air Laboratory Results 11/27/23 Range/Units 06:42 WBC 14.78 H (4.8-10.8) K/ul RBC 5.67 (4.70-6.10) M/uL Hgb 17.6 (14.0-18.0) g/dl Hct 52.3 H (42.0-52.0) % MCV 92.2 (80.0-100.0) fL MCH 31.0 (25.0-34.0) pg MCHC 33.7 (32.0-36.0) g/dL RDW Std Deviation 45.2 (36.4-46.3) fL RDW Coeff of Mu 13.3 (11.5-14.5) % Plt Count 348 (130-400) K/uL MPV 9.1 L (9.4-12.4) fL PT 19.8 H (9.0-12.0) Seconds INR 1.9 H (0.9-1.1) Sodium 135 L (136-145) mmol/L Potassium 4.5 (3.5-5.1) mmol/L Chloride 99 (98-107) mmol/L Carbon Dioxide 30 (21-32) mmol/L Anion Gap 6 (3-11) BUN 33 H (6-23) mg/dl Creatinine 0.90 (0.6-1.4) mg/dl Est Cr Clr Drug Dosing 65.3 ml/min Est GFR ( Amer) 89.9 ml/min Est GFR (Non-Af Amer) 77.6 ml/min BUN/Creatinine Ratio 36.7 H (10-20) Glucose 91 (70-99(Fasting)) mg/dl Calcium 9.2 (8.6-10.3) mg/dl Magnesium 2.0 (1.7-2.4) mg/dl B-Natriuretic Peptide 57 (0-100) pg/ml TSH 5.927 H (0.300-4.500) uIu/ml Free T4 1.10 (0.61-1.60) ng/dl Diagnostic Findings Lumbar Spine X-Ray 11/26/23 13:42 LUMBAR SPINE 3 VIEWS CLINICAL HISTORY: Low back pain. FINDINGS: 3 standing views of the lumbar spine are compared to study dated 08/27/2011. Correlation is made with MRI of the lumbar spine dated 11/18/2023. The skeletal structures are osteopenic. There is a subacute inferior endplate compression fracture of L4 with mild loss of height. This is similar to the 11/18/2023 MRI. Vertebral body height is otherwise maintained throughout the lumbar spine. There is minimal anterolisthesis at L5-S1. Alignment is otherwise preserved. Anterior and lateral marginal osteophytes are seen throughout. The transverse and spinous processes appear intact. There is mild multilevel degenerative disc space narrowing. Facet arthropathy is seen in the [id number] lumbar region. The imaged bony pelvis appears intact. Degenerative sclerosis is noted in the sacroiliac joints. Cholecystectomy clips and an IVC filter are in place. There is no bowel obstruction. Advanced atherosclerotic calcification is noted in the abdominal aorta. Bladder calculi are seen in the pelvis. IMPRESSION: 1. A subacute inferior endplate compression deformity of L4 is similar to previous. 2. Osteopenia and spondylotic change as above. 3. Bladder calculi are noted. Dictated: 11/26/2023 3:35 PM Transcribed: 11/26/2023 3:50 PM Shane [id number] [email or web address] Electronically signed by: Anthony Beyer M.D. 11/26/2023 5:11 PM PG Care Time/CCT Total # of Minutes Spent Total Time Spent with Patient: Total time spent is greater than 50% in coordination of care (as documented) at patient's floor/unit and/or counseling patient: Coding Level of Care Code 65648 SUB INP/OBS CARE 3/50MIN Diagnoses Fall W19.XXXA Chronic obstructive pulmonary disease, unspecified COPD type J44.9 COPD type: unspecified COPD H/O deep venous thrombosis Z86.718 Closed compression fracture of L4 vertebra S32.040A Pure hypercholesterolemia E78.00 Hyperlipidemia type: pure hypercholesterolemia BPH (benign prostatic hyperplasia) N40.0 Aortic stenosis, severe I35.0 (2) COPD (chronic obstructive pulmonary disease) COPD type: unspecified COPD Qualified Code(s): J44.9 - Chronic obstructive pulmonary disease, unspecified (5) Hyperlipidemia Hyperlipidemia type: pure hypercholesterolemia Qualified Code(s): E78.00 - Pure hypercholesterolemia, unspecified
--- NOTE | 2023-11-27 08:31 | Orthopedic Consultation ---
Date of Consultation November 27, 2023 Assessment & Plan (1) Compression fracture of lumbar vertebra: Assessment compression fracture with lumbar radiculopathy. Plan at this time at length yesterday with the patient reviewing his MRI findings x-rays and clinical course. X-rays do demonstrate a hint of anterolisthesis L4-5. There is obvious endplate deformity. MRI confirms neuroforaminal disease that may contribute to the radiculopathy. I did explain the patient is a high surgical risk secondary to aortic stenosis. Any injections would be limited secondary to his anticoagulation. If he is able to hold his anticoagulation therapy he may be a candidate for injections. If we do consider surgical option would need the opinions of medicine and anesthesia regarding his ability to undergo anesthesia. History of Present Illness Reason for Consultation: Right leg pain Attending Physician: Girish Garza MD History of Present Illness This is a very pleasant 83-year-old male who presents the hospital with multimedical issues. He continues to have back pain with more dominant right leg symptoms. He states his back pain is intermittent and not limiting. He does have a brace. He states upon standing and any attempted ambulation he has pain along the right lateral thigh extending down the anterior thigh to the knee. It rarely extends below the knee. Left lower extremity is essentially normal. He denies any gross strength deficits. Denies any recent trauma fall or event. Allergies Allergy/AdvReac Type Severity Reaction Status Date / Time No Known Allergies Allergy Verified 11/18/23 10:13 Home Medications Medication Instructions Recorded Confirmed Type omega 7-xsp-net-fish oil 1,000 mg 0 mg PO QAM 12/21/18 11/18/23 History (120 mg-180 mg) capsule (Fish Oil) jatvtysi-qfp-wecbr acid 0.4 0 tab PO QAM 09/05/20 11/18/23 History mg-lycopene 300 mcg-lutein 250 mcg tablet (Centrum Silver) atorvastatin 10 mg tablet 10 mg PO HS #90 tabs 12/23/22 11/18/23 Rx warfarin 5 mg tablet See Rx Instructions .Route 12/23/22 11/18/23 Rx .COMPLEX #180 tabs fluticasone fur. 100 mcg-umeclid 1 inh inhalation DAILY #60 ea 01/21/23 11/18/23 Rx 62.5 mcg-vilant 25 mcg inhalat.powder (Trelegy Ellipta) finasteride 5 mg tablet 5 mg PO DAILY #90 tabs 10/03/23 11/18/23 Rx glucosamine 750 er-quhxkubonay-vvt 0 tab PO DAILY 10/24/23 11/18/23 History no1 644 mg-C 30 mg-ana 1 mg tablet (Osteo Bi-Flex Triple Strength) triamcinolone acetonide 0.5 % 1 applic topical DAILY #15 grams 10/24/23 11/18/23 Rx topical cream tramadol 50 mg tablet 50 mg PO DIRECTED PRN Pain 11/16/23 11/18/23 History Patient History Medical History BPH (benign prostatic hyperplasia) Aortic stenosis, moderate pt unaware History of kidney stones COPD (chronic obstructive pulmonary disease) pt unaware Gangrenous cholecystitis Cholelithiasis and cholecystitis without obstruction H/O deep venous thrombosis over 10 yrs ago> Warfarin > unknown cause Abdominal pain resolved per pt Chest pain at rest Pneumonia resolved Hypertension Bladder stone Surgical History History of colonoscopy History of tooth extraction S/P laparoscopic cholecystectomy 11/24/20 Dr. Carlos A Jacobo- Acute cholecystitis with gangrene gallbladder S/P trigger finger release bilat hands multiple times Basal cell carcinoma with removal from forehead/back Family History Brother Prostate cancer Other Family history non-contributory Denies family history of Ovarian cancer Myocardial infarction Breast cancer Colorectal cancer Social History Smoking Status: Current every day smoker Tobacco Type: Cigarettes Cigarettes Per Day: on occasion; Second Hand Exposure: No; Do You Dip or Chew Tobacco: No; Hx Alcohol Use: Yes Alcohol type: beer Alcohol Intake Frequency: Monthly or Less Hx Substance Use: No Preferred Language: Emir[place] Communication Ability: Effective Visual Impairment: No Limitations Hearing Ability: Normal Theology Professor Required: No Beliefs That Will Affect Care: None marital status: Current Living Situation: Alone current occupational status: retired How many Children do You have: 3 Other Information That Helps Us Care for You: No Feels Safe at Home: Yes Safety Concerns: Feels Safe At This Time Childhood Exposure to Second-Hand Smoke: Yes Diet: regular caffeine: Yes during the past year weight has: remained stable Dental Care, Regularly: Yes Physical Activity Frequency: Daily Seatbelt Use: always Sunscreen Use: Yes Do you think of yourself as: straight/heterosexual Gender Identity: Male Assistive Devices: Walker Physical Exam Physical Exam: On exam patient is in the chair at the bedside. The brace is in place. He has reasonable strength testing lower extremities. Negative logroll bilaterally. Sensory symmetric and intact. I did have him stand for me today. He required some assistance. But upon even modest weightbearing he had a reproduction of pain down the leg that is quite limiting. Results & Data Vital Signs (Past 12 Hours) Vital Signs Temp Pulse Resp BP Pulse Ox O2 Del Method 11/27/23 07:58 36.4 C L 78 16 114/71 93 Room Air 11/26/23 21:36 Room Air (1) Compression fracture of lumbar vertebra Encounter type: subsequent encounter Fracture healing: with delayed healing Lumbar vertebra fracture level: L4 Qualified Code(s): S32.040G - Wedge compression fracture of fourth lumbar vertebra, subsequent encounter for fracture with delayed healing
[2023-11-27 08:52] LABS: T4 Free Thyroxine 1.1 ng/dl (0.61-1.60)
[2023-11-27] MEDS: FUROSEMIDE 40 MG TAB PO ONE (12:11)
--- NOTE | 2023-11-27 13:42 | Anesthesiology Consultation ---
Date of Service November 27, 2023 Assessment & Plan (1) Encounter for pre-operative examination: Chart Review Chart Review: Pending: Refer to Additional Notes / Consult section pt had cholecystectomy in 2011 with similar echo results - had some wheezing treated post op but seemed to do ok - currently anticoagulated - certainly higher risk for surgery but if spine symptoms severe enough likely would not preclude surgery - await cardiology input History Height/Weight Height: 5 ft 9 in Weight: 80.9 kg Allergies Allergy/AdvReac Type Severity Reaction Status Date / Time No Known Allergies Allergy Verified 11/18/23 10:13 Medications Home Medications Medication Instructions Recorded Confirmed Last Taken omega 6-zsc-gel-fish oil 1,000 mg 0 mg PO QAM 12/21/18 11/18/23 11/16/23 (120 mg-180 mg) capsule (Fish Oil) tnzpwtfi-dhh-cllwo acid 0.4 0 tab PO QAM 09/05/20 11/18/23 11/16/23 mg-lycopene 300 mcg-lutein 250 mcg tablet (Centrum Silver) atorvastatin 10 mg tablet 10 mg PO HS #90 tabs 12/23/22 11/18/23 11/16/23 warfarin 5 mg tablet See Rx Instructions .Route 12/23/22 11/18/23 11/16/23 .COMPLEX #180 tabs fluticasone fur. 100 mcg-umeclid 1 inh inhalation DAILY #60 ea 01/21/23 11/18/23 11/16/23 62.5 mcg-vilant 25 mcg inhalat.powder (Trelegy Ellipta) finasteride 5 mg tablet 5 mg PO DAILY #90 tabs 10/03/23 11/18/23 11/16/23 glucosamine 750 la-nkvwvvexhkl-amv 0 tab PO DAILY 10/24/23 11/18/23 11/16/23 no1 644 mg-C 30 mg-ana 1 mg tablet (Osteo Bi-Flex Triple Strength) triamcinolone acetonide 0.5 % 1 applic topical DAILY #15 grams 10/24/23 11/18/23 11/16/23 topical cream tramadol 50 mg tablet 50 mg PO DIRECTED PRN Pain 11/16/23 11/18/23 11/16/23 Active Medications Generic Name Dose Route Start Last Admin Trade Name Freq PRN Reason Stop Dose Admin Acetaminophen 1,000 mg 11/18/23 17:00 11/27/23 08:07 Acetaminophen 500 Mg Tab PO 12/18/23 16:59 1,000 mg Q8H SHAYY Administration Albuterol 3 ml 11/19/23 12:01 11/19/23 13:16 Albut/Ipratrop 3mg/0.5mg Neb 3 Ml Vial NEB 12/19/23 14:59 3 ml Q4R PRN Administration Wheezing Protocol Atorvastatin Calcium 10 mg 11/18/23 21:00 11/26/23 20:57 Atorvastatin 10 Mg Tab PO 12/18/23 20:59 10 mg HS SHAYY Administration Calcitonin [place] 1 sprays 11/24/23 17:00 11/27/23 08:05 Calcitonin [place] Na 200 Iu/Ac 3.7 Ml Btl NA 12/24/23 16:59 1 sprays DAILY SHAYY Administration Calcium Carbonate 500 mg 11/23/23 19:17 11/25/23 08:53 Calcium Carbonate 500 Mg Chewable Tab PO 12/23/23 19:16 500 mg TID PRN Administration Indigestion Diclofenac Sodium 2 gm 11/20/23 21:00 11/27/23 08:06 Diclofenac Sod 1% Gel 100 Gm Tube EXT 12/20/23 20:59 2 gm BID SHAYY Administration Protocol Docusate Sodium 100 mg 11/25/23 10:30 11/27/23 08:07 Docusate Sodium 100 Mg Cap PO 12/25/23 10:29 100 mg BID SHAYY Administration Finasteride 5 mg 11/18/23 13:13 11/27/23 08:07 Finasteride 5 Mg Tab PO 12/18/23 13:12 5 mg DAILY SHAYY Administration Fluticasone Furoate 1 puffs 11/19/23 09:00 11/27/23 08:06 Fluticasone Furoate 100mcg 14 Puffs/Inhaler INH 12/19/23 08:59 1 puffs DAILY SHAYY Administration Gabapentin 300 mg 11/25/23 14:00 11/27/23 08:07 Gabapentin 300 Mg Cap PO 12/25/23 13:59 300 mg TID SHAYY Administration Guaifenesin 600 mg 11/23/23 19:17 11/24/23 09:09 Guaifenesin 600 Mg Tabcr PO 12/23/23 20:59 600 mg Q12 PRN Administration congestion Lidocaine 1 patch 11/18/23 11:30 11/27/23 08:07 Lidocaine 5% 1 Patch TD 12/18/23 11:29 1 patch QAM SHAYY Administration Melatonin 3 mg 11/18/23 13:13 11/26/23 20:59 Melatonin 3 Mg Tab PO 12/18/23 13:12 3 mg HS PRN Administration Insomnia Miscellaneous 1 each 11/18/23 21:00 11/26/23 21:58 Remove Lidoderm Patch N/A 12/18/23 20:59 1 each DAILY@2100 SHAYY Administration Oxycodone HCl 5 - 10 mg 11/19/23 12:03 11/27/23 08:08 Oxycodone Hcl Ir 5 Mg Tab (Immediate Release) PO 12/03/23 12:02 10 mg Q6H PRN Administration Pain Prednisone 40 mg 11/27/23 09:00 11/27/23 08:07 Prednisone 20 Mg Tab PO 12/27/23 08:59 40 mg QAM SHAYY Administration Sennosides 17.2 mg 11/25/23 10:30 11/27/23 08:08 Senna 8.6 Mg Tab PO 12/25/23 10:29 17.2 mg QAM SHAYY Administration Tamsulosin HCl 0.4 mg 11/22/23 09:00 11/27/23 08:07 Tamsulosin Hcl 0.4 Mg Cap PO 12/22/23 08:59 0.4 mg QAM SHAYY Administration Triamcinolone Acetonide 1 appln 11/19/23 09:00 11/27/23 08:07 Triamcinolone Acet 0.5% Cr 15 Gm Tube TOP 12/19/23 08:59 1 appln DAILY SHAYY Administration Umeclidinium/Vilanterol 1 puffs 11/19/23 09:00 11/27/23 08:06 Umeclidinium/Vilanterol 62.5/25mcg 7 Puffs/Inhaler INH 12/19/23 08:59 1 puffs DAILY SHAYY Administration Warfarin Sodium 5 mg 11/24/23 16:00 11/26/23 17:22 Warfarin Sod 5 Mg Tab PO 12/24/23 15:59 5 mg MoWeFr@1600 SHAYY Administration Past Medical History Medical History BPH (benign prostatic hyperplasia) Aortic stenosis, moderate pt unaware History of kidney stones COPD (chronic obstructive pulmonary disease) pt unaware Gangrenous cholecystitis Cholelithiasis and cholecystitis without obstruction H/O deep venous thrombosis over 10 yrs ago> Warfarin > unknown cause Abdominal pain resolved per pt Chest pain at rest Pneumonia resolved Hypertension Bladder stone Past Family History Family History Brother Prostate cancer Other Family history non-contributory Denies family history of Ovarian cancer Myocardial infarction Breast cancer Colorectal cancer Past Surgical History Surgical History History of colonoscopy History of tooth extraction S/P laparoscopic cholecystectomy 11/24/20 Dr. Carlos A Jacobo- Acute cholecystitis with gangrene gallbladder S/P trigger finger release bilat hands multiple times Basal cell carcinoma with removal from forehead/back Social History Smoking Status: Current every day smoker tobacco type: cigars Smoking cigarettes per day: on occasion Do You Dip or Chew Tobacco: No Hx Alcohol Use: Yes Alcohol type: beer alcohol intake frequency: holidays/special occasions only Hx Substance Use: No substance use type: does not use Physical Exam Vital Signs Last Vital Signs Temp 36.4 C L 11/27/23 07:58 Pulse 78 11/27/23 07:58 Resp 16 11/27/23 07:58 BP 114/71 11/27/23 07:58 Pulse Ox 93 11/27/23 07:58 O2 Del Method Room Air 11/27/23 08:05 O2 Flow Rate 3 11/20/23 07:54 Testing Laboratory Results 11/27/23 06:42 11/27/23 06:42 PT 19.8 Seconds (9.0-12.0) H 11/27/23 06:42 INR 1.9 (0.9-1.1) H 11/27/23 06:42 APTT 42 Seconds (21-31) H 11/18/23 08:30 Urine Color Dark Yellow 11/25/23 20:35 Urine Appearance Clear (Clear) 11/25/23 20:35 Urine pH 6.0 (4.5-7.5) 11/25/23 20:35 Ur Specific [place] 1.029 (1.000-1.030) 11/25/23 20:35 Urine Protein 1+ (Negative) H 11/25/23 20:35 Urine Glucose (UA) Negative (Negative) 11/25/23 20:35 Urine Ketones Trace (Negative) H 11/25/23 20:35 Urine Nitrite Negative (Negative) 11/25/23 20:35 Ur Leukocyte Esterase 1+ (Negative) H 11/25/23 20:35 Urine WBC (Auto) 1-5 /hpf (0-5) 11/25/23 20:35 Urine RBC (Auto) >30 /hpf (0-4) H 11/25/23 20:35 U Hyaline Cast (Auto) 1-5 /lpf (0-5) 11/25/23 20:35 U Epithel Cells (Auto) 20-30 /lpf (0-5) H 11/25/23 20:35 Urine Bacteria (Auto) Negative (Negative) 11/25/23 20:35 Electrocardiogram Date: 11/18/23 Findings: + NSR @ (87) and + poor R wave progression Echocardiogram Date: 01/30/23 EF: 60-65% Other Findings: + LVH (severe) Valvular Disease: + (1.1cm2 max grad 36mmHg)
[2023-11-27] MEDS: WARFARIN SOD 7.5 MG TAB PO SCH (17:10)
--- NOTE | 2023-11-27 19:32 | Cardiology Consultation ---
Date of Consultation November 27, 2023 Assessment & Plan (1) Aortic stenosis, severe: (2) COPD (chronic obstructive pulmonary disease): (3) [facility] current use of anticoagulant: (4) Compression fracture of lumbar vertebra: Plan 83-year-old man with severe but apparently asymptomatic aortic stenosis, well compensated COPD, on long-term warfarin for remote DVT, admitted with fall resulting in compression fracture of L4 for which operative intervention is being considered. No evidence of ongoing myocardial ischemia, congestive heart failure, or dysrhythmia. His exercise tolerance was reasonable prior to his developing orthopedic limitations and his aortic stenosis, albeit severe, is noncritical. If plan anesthesia and surgery do not carry a substantial risk of hypotension (even transient), his perioperative risk would not be prohibitive. If his surgery does not involve a high risk of hypotension (i.e., if no spinal anesthesia planned, major blood loss not expected, etc.) and nonsurgical alternatives are felt to be inadequate to address his substantial pain, shared decision making with the patient suggests he could proceed to orthopedic surgery. Obviously, warfarin would need to be held for some time prior to surgery. Since his DVTs were more than 3 months ago he would be low thromboembolic risk perioperatively and would NOT require heparin bridging. Would recommend discontinuing fish oil, since this can increase bleeding risk. I would be glad to be available at the time of the family discussion tomorrow (11/28/2023) to weigh in on the cardiac risk component of the surgery while Dr. Carlson could further delineate the likelihood of benefit from the surgery. History of Present Illness Reason for Consultation: aortic stenosis, possible need for surgery, pre-op Requesting Physician: Girish Garza MD Attending Physician: Girish Garza MD History of Present Illness 83-year-old man with history of COPD/emphysema, remote DVT ([place] filter/warfarin), and now severe aortic stenosis, who was admitted 11/18/2023 after a fall and found to have a compression fracture of L4 for which operative intervention is being considered. He has no history of known coronary artery disease or dysrhythmia. His aortic valve stenosis has been gradually progressive over the years and had not yet become symptomatic. Until recently, he could walk up 12 stairs from the basement without stopping, noting only mild dyspnea at the top of the stairs. He denies chest pain at any time and has had no presyncope or syncopal episodes. No palpitations, orthopnea, or PND. Has mild chronic ankle edema which is unchanged. Weight has been stable. His only somatic complaint at the time my evaluation this evening was radicular right leg pain (secondary to his compression fracture) with any attempt to stand or ambulate. Allergies Allergy/AdvReac Type Severity Reaction Status Date / Time No Known Allergies Allergy Verified 11/18/23 10:13 Home Medications Medication Instructions Recorded Confirmed Type omega 1-ern-pzj-fish oil 1,000 mg 0 mg PO QAM 12/21/18 11/18/23 History (120 mg-180 mg) capsule (Fish Oil) okwotkcd-ujn-ektwm acid 0.4 0 tab PO QAM 09/05/20 11/18/23 History mg-lycopene 300 mcg-lutein 250 mcg tablet (Centrum Silver) atorvastatin 10 mg tablet 10 mg PO HS #90 tabs 12/23/22 11/18/23 Rx warfarin 5 mg tablet See Rx Instructions .Route 12/23/22 11/18/23 Rx .COMPLEX #180 tabs fluticasone fur. 100 mcg-umeclid 1 inh inhalation DAILY #60 ea 01/21/23 11/18/23 Rx 62.5 mcg-vilant 25 mcg inhalat.powder (Trelegy Ellipta) finasteride 5 mg tablet 5 mg PO DAILY #90 tabs 10/03/23 11/18/23 Rx glucosamine 750 tq-nzqulwkpcik-nit 0 tab PO DAILY 10/24/23 11/18/23 History no1 644 mg-C 30 mg-ana 1 mg tablet (Osteo Bi-Flex Triple Strength) triamcinolone acetonide 0.5 % 1 applic topical DAILY #15 grams 10/24/23 11/18/23 Rx topical cream tramadol 50 mg tablet 50 mg PO DIRECTED PRN Pain 11/16/23 11/18/23 History Patient History Medical History Colon polyp Varicose vein of leg History of SCC (squamous cell carcinoma) of skin History of basal cell carcinoma Diverticulosis of colon BPH (benign prostatic hyperplasia) Aortic stenosis, moderate pt unaware History of kidney stones COPD (chronic obstructive pulmonary disease) pt unaware Gangrenous cholecystitis Cholelithiasis and cholecystitis without obstruction H/O deep venous thrombosis over 10 yrs ago> Warfarin > unknown cause Abdominal pain resolved per pt Chest pain at rest Pneumonia resolved Hypertension Bladder stone Surgical History History of colonoscopy History of tooth extraction S/P laparoscopic cholecystectomy 11/24/20 Dr. Carlos A Jacobo- Acute cholecystitis with gangrene gallbladder S/P trigger finger release bilat hands multiple times Basal cell carcinoma with removal from forehead/back Family History Brother Prostate cancer Other Family history non-contributory Denies family history of Ovarian cancer Myocardial infarction Breast cancer Colorectal cancer Social History Smoking Status: Current every day smoker Tobacco Type: Cigarettes Cigarettes Per Day: on occasion; Second Hand Exposure: No; Do You Dip or Chew Tobacco: No; Hx Alcohol Use: Yes Alcohol type: beer Alcohol Intake Frequency: Monthly or Less Hx Substance Use: No Preferred Language: Andorran Communication Ability: Effective Visual Impairment: No Limitations Hearing Ability: Normal Intraoperative Neuro Tech Required: No Beliefs That Will Affect Care: None marital status: Current Living Situation: Alone current occupational status: retired How many Children do You have: 3 Other Information That Helps Us Care for You: No Feels Safe at Home: Yes Safety Concerns: Feels Safe At This Time Childhood Exposure to Second-Hand Smoke: Yes Diet: regular caffeine: Yes during the past year weight has: remained stable Dental Care, Regularly: Yes Physical Activity Frequency: Daily Seatbelt Use: always Sunscreen Use: Yes Do you think of yourself as: straight/heterosexual Gender Identity: Male Assistive Devices: Walker Physical Exam Physical Exam: Elderly white male in no distress. Afebrile. BP normotensive. Pulse 88 bpm and regular. Skin: Stasis changes lower extremities, otherwise no ecchymoses or generalized lesions. HEENT: unremarkable. Neck: JVP at the clavicle at 90 degrees, soft bilateral transmitted murmur heard in the carotids. Lungs: Mildly reduced breath sounds but clear bilaterally. No crackles, wheezes, or accessory muscle use. Cardiac: regular rhythm, an audible aortic closure sound, 2/6 crescendo/decrescendo systolic murmur right upper sternal border rating to the carotids, 2/6 apical holosystolic murmur radiating to the axilla. Abdomen: benign. Extremities: Stasis changes, trace pretibial edema, pulses intact. Neurologic: normal affect and conversation, nonfocal. Results & Data Vital Signs (Past 12 Hours) Vital Signs Temp Pulse Resp BP Pulse Ox O2 Del Method 11/27/23 14:56 97.3 F L 88 16 126/78 93 Room Air 11/27/23 08:05 Room Air 11/27/23 07:58 97.5 F L 78 16 114/71 93 Room Air Laboratory Results Sodium 135, potassium 4.5, BUN 33, creatinine 0.9. Hemoglobin 7.26, white count 14.78, normal platelet count. BNP 57 TSH 5.9. Free T41.1. Diagnostic Findings ECG on admission showed sinus rhythm with possible age-indeterminate septal infarct. Compared with 2020 ECG, borderline criteria for septal infarct now seen, T wave amplitude decreased anterior leads and increased lateral leads. Chest x-ray showed cardiomegaly, otherwise unremarkable. 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 current use of anticoagulant Z79.01 Compression fracture of lumbar vertebra S32.040G Encounter type: subsequent encounter Fracture healing: with delayed healing Lumbar vertebra fracture level: L4 (2) COPD (chronic obstructive pulmonary disease) COPD type: unspecified COPD Qualified Code(s): J44.9 - Chronic obstructive pulmonary disease, unspecified (4) Compression fracture of lumbar vertebra Encounter type: subsequent encounter Fracture healing: with delayed healing Lumbar vertebra fracture level: L4 Qualified Code(s): S32.040G - Wedge compression fracture of fourth lumbar vertebra, subsequent encounter for fracture with delayed healing
--- NOTE | 2023-11-27 19:37 | XCELERA ---
[id number] \\[id number]
--- NOTE | 2023-11-28 08:29 | Hospitalist Progress Note ---
Date of Service November 28, 2023 Assessment & Plan (1) Fall: Plan: Patient sustained a ground-level fall on 11/18; recurrent falls in the setting of recent back injury- No head strike, LOC, dizziness/lightheadedness prior to fall, or tripping Has been seen in ED on 11/[address] Carlson --> recommended brace Head CT - no acute intracranial findings CXR - no acute findings Bilateral pelvic x-ray revealed no acute abnormalities Ortho spine consulted (Dr Moreno) - MRI - L4 Compression fracture, moderate foraminal but no significant central stenosis - Recommend lumbosacral brace , in room Pain control: topical lidocaine patch, Tylenol, oxycodone 5-10mg as needed. Calcitonin nasal spray Dexamethasone transitioned to PO prednisone for COPD exacerbation (see below), tapering now Gabapentin increased to 300mg TID Discussed with patient on 11/25 given ongoing pain/concerns for lumbar radiculopathy in region L3-L4/L4-L5 and discussed with Dr Carlson , consult placed. Reviewed MRI and standing film and exam on subsequent day with increased pain with weightbearing/standing and concerns for need for intervention for ongoing symptoms/radiulopathy Pain management consulted, cards/anesthesia for pre-op clearance if not going to persue injection and wanting surgery --> After discussion, patient wanting to try the injection, which will need to be arranged after discharge/hold AC Pain management contacted PCP Dr Phoenix's office and ok with holding COUMADIN FOR 7 days WITHOUT NEED for bridging and can arrange for transport from [facility] (bed on Friday) to [facility] (confirming with CM about 18th vs ) and will plan to hold coumadin Friday for anticipation for injection. Review of MRI and standing film/exam, concerns for need for intervention for ongoing symptoms/radiculopathy Patient's son will be in tomorrow and will be there for discussion with Dr Carlson for further recommendations On coumadin for hx DVT (has IVC filter in place), consult placed for anesthesia in case of need for surgery as well as pain management for consideration for injection if able to hold AC. Cards also consulted given his for clearance if needed (and repeat ECHO obtained, BNP not elevated) Additional lasix 40mg PO x 1 for today given edema/wt gain suspected from steroids in setting of and stable labs on repeat. Monitor in AM PT/OT consults recommending rehab ([facility] upcoming week possibly). CM following (2) COPD (chronic obstructive pulmonary disease): Plan: w/ exacerbation w/ reports of increased sputum/wheezing on exam prior. procal negative dexamethasone for back as above--> prednisone 40mg daily and tapering to 30mg for tomorrow and decrease by 10mg q2 days to complete taper for back as well lasix x 1 11/26, improvement and holding further diuretics, no significant volume overload no further wheezing on exam and remaining on room air added pepcid BID for GI proph Monitor (3) H/O deep venous thrombosis: Plan: On warfarin, pt reports goal 2-3, managed by PCP and typically well controlled Home regimen SuWeSa 7.5mg, MoTuFr 10mg, no dose Supratherapeutic INR at 5.3 on arrival, held Coumadin and reduced to MWF 5mg, SSTR 7.5mg (7.5mg weekly reduction, ~14% reduction) INR 3.2 on 11/23 and Coumadin resumed but repeat up to 4.2 and again held and resumed with INR 3.0 and repeat 1.9 but normalized 2.3 at present time --> Patient continuing on his usual coumadin but as above, will be planning to hold on Wednesday 11/29 for anticipation for CATALINA injection - no need for lovenox bridging per PCP. Needing to confirm date for injection for holding 7 days prior to injection Consider f/u coag clinic given INR fluctuations, following w/ PCP at present INR in AM (4) Closed compression fracture of L4 vertebra: Plan: Patient first noticed lower back/leg pain on Thursday 11/09 Chiropractor manipulation on Saturday 11/11 A/P CT on 11/13 noted mild acute L4 compression deformity Vit D not deficient as above Calcitonin nasal spray, pain control, brace as outlined above and will be planning for rehab at [place] Carlson seen in f/u -- as above, planning for injection/monitoring response. If successful and worsened in future could consider surgical intervention but attempting to have more conservative approach at this time (5) Hyperlipidemia: Plan: Continue atorvastatin -- placed on hold given LFT elevation. No abdominal pain reported and TB wnl. ?medication related -- will monitor repeat labs (6) BPH (benign prostatic hyperplasia): Plan: Does have hx bladder stones (mentioned on CTAP on arrival, follows w/ Dr Arce) Continues on finasteride Episode of urinary retention on 11/19, straight cath'd and UA w/o signs of infection (blood likely from cath) --> burning with urination and req again straight cath (UA again without infection) Fitzpatrick placed on 11/20 --> recommend keeping in place and arranging for urology outpt for voiding trial. Flomax started 11/21 (not on at baseline) and continued --will need new rx at discharge UOP acceptable -- monitor (7) Aortic stenosis, severe: Plan: Chronic; noted slightly more edema 11/25, ?2nd to steroids -- given lasix 40mg PO x 1, additional dose on 11/26 and appearing stable at present time. No significant volume overload ECHO w/o significant change on repeat. See cards note, consulted for clearance if had wanted to undergo surgery route for pre-op clearance MOnitor weights/output Plan Dispo: PT/OT rec rehab--> [facility] bed on Friday, CM following DVT proph: remains on coumadin for above however will be planning to hold on Friday for injection as outpatient with pain management from rehab Updated son and family at bedside 11/27 Admission and Anticipated Discharge Date Admission Date: November 18, 2023 Supervising Physician Co-Signing Physician Notes The patient was not seen by me. The chart was reviewed. Case discussed with TANIKA Kincaid. Agree with assessment and plan Subjective Evaluated this afternoon, son and grandchild in room along with great granddaughter. Patient sitting up in chair. Pain controlled reasonably at present with ordered medications. Reviewed pain regimen with family -- continuing gabapentin at present dose to prevent increasing/confusion in patient given age. Seen by pain management and they are wanting to pursue injection which is attempting to be coordinated and discussed with his primary care provider regarding his coumadin and need for lovenox bridging and timing to hold his coumadin/arrangement for epidural injection week of 12/07-12/11 which can be arranged from rehab at [facility] for this injection. Continues with sputum production but no further wheezing. Discussed tapering his steroids given improvement in lung exam but titration given also helping with hi s back/albiet minimally. He does note they took away his sausage - will resume. He does have some issues with swallowing at times/feeling like something getting stuck and reflux. Not on any medication at baseline for reflux. Will add pepcid BID given steroid use and also on coumadin. No abdominal discomfort/bleeding reported but monitoring. Will see about speech seeing him while inpatient, will change diet to easy to chew in meantime. No choking/aspiration reported or fever/chills. Physical Exam Physical Exam: General: 83yo male sitting up in chair, NAD, family at bedside - does appear mildly uncomfortable with movements at times radiating to R leg, worse with standing HEENT: head atraumatic, normocephalic, mmm, trachea midline Resp: even/unlabored,diminished in the bases, faint exp wheeze resolved, +cough/sputum production but remaining on room air CV: RRR, +systolic murmur, +b/l LE edema improved, chronic venous stasis changes GI: +BS, soft/NT, less distension : yellow urine present in bag MSK/Neuro: LSO brace in room, dorsiflexion/plantar flexion intact however +radiculopathy R leg to level of the knee, increased pain with any weightbearing down right leg. increase pain w/ extension Psych: AOx3, cooperative with exam Results & Data Results & Data Vital Signs (Past 12 Hours) Vital Signs Temp Pulse Resp BP Pulse Ox O2 Del Method 11/28/23 08:11 36.4 C L 84 18 158/59 H 99 Room Air Laboratory Results 11/28/23 Range/Units 07:04 WBC 12.23 H (4.8-10.8) K/ul RBC 5.35 (4.70-6.10) M/uL Hgb 17.1 (14.0-18.0) g/dl Hct 48.8 (42.0-52.0) % MCV 91.2 (80.0-100.0) fL MCH 32.0 (25.0-34.0) pg MCHC 35.0 (32.0-36.0) g/dL RDW Std Deviation 45.0 (36.4-46.3) fL RDW Coeff of Mu 13.4 (11.5-14.5) % Plt Count 304 (130-400) K/uL MPV 9.4 (9.4-12.4) fL PT 24.2 H (9.0-12.0) Seconds INR 2.3 H (0.9-1.1) Sodium 135 L (136-145) mmol/L Potassium 4.5 (3.5-5.1) mmol/L Chloride 100 (98-107) mmol/L Carbon Dioxide 30 (21-32) mmol/L Anion Gap 5 (3-11) BUN 32 H (6-23) mg/dl Creatinine 0.79 (0.6-1.4) mg/dl Est Cr Clr Drug Dosing 68.4 ml/min Est GFR ( Amer) 94.9 ml/min Est GFR (Non-Af Amer) 81.9 ml/min BUN/Creatinine Ratio 40.5 H (10-20) Glucose 82 (70-99(Fasting)) mg/dl Calcium 9.0 (8.6-10.3) mg/dl Magnesium 1.9 (1.7-2.4) mg/dl Total Bilirubin 0.8 (0.2-1.0) mg/dl Direct Bilirubin TNP AST 41 H (13-39) U/L ALT 76 H (7-52) U/L Alkaline Phosphatase 109 H (34-104) U/L Total Creatine Kinase 92 (30-223) U/L Total Protein 6.2 (6.0-8.3) gm/dl Albumin 3.5 (3.4-5.0) gm/dl Free T3 2.98 (2.3-4.2) pg/ml PG Care Time/CCT Total # of Minutes Spent Total Time Spent with Patient: Total time spent is greater than 50% in coordination of care (as documented) at patient's floor/unit and/or counseling patient: Coding Level of Care Code 77814 SUB INP/OBS CARE 3/50MIN Diagnoses Fall W19.XXXA Chronic obstructive pulmonary disease, unspecified COPD type J44.9 COPD type: unspecified COPD H/O deep venous thrombosis Z86.718 Closed compression fracture of L4 vertebra S32.040A Pure hypercholesterolemia E78.00 Hyperlipidemia type: pure hypercholesterolemia BPH (benign prostatic hyperplasia) N40.0 Aortic stenosis, severe I35.0 (2) COPD (chronic obstructive pulmonary disease) COPD type: unspecified COPD Qualified Code(s): J44.9 - Chronic obstructive pulmonary disease, unspecified (5) Hyperlipidemia Hyperlipidemia type: pure hypercholesterolemia Qualified Code(s): E78.00 - Pure hypercholesterolemia, unspecified
[2023-11-28 08:43] LABS: Hematocrit (blood only) 48.8 % (42.0-52.0); Hemoglobin 17.1 g/dl (14.0-18.0); Mean Corpuscular Volume 91.2 fL (80.0-100.0); Mean Platelet Volume 9.4 fL (9.4-12.4); Platelet Count 304 K/uL (130-400); RDW Coefficient of Variation 13.4 % (11.5-14.5); Red Blood Count 5.35 M/uL (4.70-6.10); White Blood Count 12.23 K/ul (4.8-10.8)
[2023-11-28 09:11] LABS: INR 2.3 (0.9-1.1); Prothrombin Time 24.2 Seconds (9.0-12.0)
[2023-11-28 09:13] LABS: Alanine Aminotransferase 76 U/L (7-52); Albumin Level 3.5 gm/dl (3.4-5.0); Alkaline Phosphatase 109 U/L (34-104); Anion Gap 5 (3-11); Aspartate Aminotransferase 41 U/L (13-39); BUN Creatinine Ratio 40.5 (10-20); Bilirubin,Total 0.8 mg/dl (0.2-1.0); Blood Urea Nitrogen 32 mg/dl (6-23); Carbon Dioxide 30 mmol/L (21-32); Chloride 100 mmol/L (98-107); Creatinine Clr Calc Pharmacy 68.4 ml/min; Est GFR (African American) 94.9 ml/min; Est GFR (Non-African American) 81.9 ml/min; Glucose 82 mg/dl (70-99(Fasting)); Magnesium 1.9 mg/dl (1.7-2.4); Potassium 4.5 mmol/L (3.5-5.1); Sodium 135 mmol/L (136-145); Total Protein 6.2 gm/dl (6.0-8.3)
--- NOTE | 2023-11-28 14:00 | Pain Management Consultation ---
Date of Consultation November 28, 2023 Assessment & Plan (1) Spinal stenosis of lumbar region: (2) Lumbosacral radiculopathy: (3) Compression fracture of lumbar vertebra: Encounter type: subsequent encounter Fracture healing: with delay ed healing Lumbar vertebra fracture level: L4 Qualified Code(s): S32.040G - Wedge compression fracture of fourth lumbar vertebra, subsequent encounter for fracture with delayed healing (4) Lower back pain: Back pain laterality: midline Chronicity: acute Sciatica laterality: sciatica of right side Sciatica presence: with sciatica Qualified Code(s): M54.41 - Lumbago with sciatica, right side (5) Stasis dermatitis of both legs: (6) Fall: (7) Venous (peripheral) insufficiency: (8) H/O deep venous thrombosis: Plan 1. We are unable to facilitate an CATALINA as inpatient, so this will be done as an outpatient at the pain management clinic. * Pain management clinic has contacted the patient's PCP, ANNELISE Brunson, to arrange holding the patient's Coumadin appropriately; She has given permission to hold the Coumadin up to 7 days if needed. * INR to be 1.2 or less. * Plan is to have the patient discontinue Coumadin once he arrives at [facility] rehab facility, possibly later today (12/01/23). * We can discuss with them the necessary periprocedural information for the patient to be arranged for an epidural injection the week of, likely the week of 12/07 - 12/11, if not sooner. 2. Patient's son has been contacted and is aware of the plan. 3. No changes to inpatient medication regimen are made. 4. Agree with LSO brace for lumbar compression fracture, which should be on for transfers and when OOB. 5. The patient is suffering from right > left low back pain symptoms, associated w/ radiation into the bilateral lower extremities, right > left, in multiple distribution patterns. * Patient is recommended to undergo L5-S1 interlaminar epidural steroid injection. * The risks, benefits, and alternatives of the procedure were discussed in detail with the patient, and in full understanding of the procedure to be performed, the patient elects to proceed as discussed. 6. Patient was educated in detail on the potential development of cauda equina syndrome red flag symptoms (i.e. severe back pain, bilateral sciatica pain and altered sensation in the legs, bowel/bladder dysfunction, saddle anesthesia, sexual problems). 7. We will see the patient in the pain clinic for a brief H&P and then he will undergo the procedure, then follow-up approximately 3-4 weeks after the injection for checkup of progress and symptoms. History of Present Illness Reason for Consultation: Fall with lumbar vertebral compression fracture, low back pain, radiculopathy; consideration for lumbar CATALINA Attending Physician: Girish Garza MD History of Present Illness Patient is an 83-year-old male that presented to the [facility] ED on 3 separate occasions since the end of October; 11/13/2023, 11/16/2023, and most recently, 11/18/2023, for low back pain and associated lower extremity pain/paresthesias. He was diagnosed with an L4 lumbar compression fracture on 11/13, and he was seen as an outpatient at [facility] spine, where he was fitted with an LSO brace. The patient was reporting that the brace was not helping. He was being seen by his chiropractor for his low back pain, and had some manipulation treatments, and then his pain worsened and he was having pain shooting down the right leg. Patient did note his legs to be weak. On the day of his 11/18 ED visit, he noted that his knees gave out on him and he slowly went to the ground. He was unable to get up on his own. He was brought to the ED via EMS services. He was seen in consultation as an inpatient by Dr. Carlson, who noted that he was having pain from the compression fracture with lumbar radiculopathy. MRI was noted to confirm neuroforaminal disease, which was felt to be contributing to the patient's radiculopathy. He was reporting predominant right leg symptoms, and that his back pain was only intermittent and not limiting. When he would attempt to stand, he would have pain along the lateral right thigh and extending down the anterior thigh to the knee. He was denying radiation distal to the knee, except for very rarely. He reported that his left lower extremity was essentially in normal baseline condition for him. Dr. Carlson did discuss the option of surgery with the patient, but they ultimately decided together that he would potentially benefit from more conservative treatment in the form of a lumbar CATALINA. They discussed him holding his Coumadin anticoagulation therapy to become a candidate for an injection. Patient's son is stating that he is unable to take the patient home and is his current condition, as he would not be able to care for him appropriately. They have been working with case management to have him transferred to [facility], likely next week. Allergies Allergy/AdvReac Type Severity Reaction Status Date / Time No Known Allergies Allergy Verified 11/18/23 10:13 Home Medications Medication Instructions Recorded Confirmed Type omega 1-cmx-wlw-fish oil 1,000 mg 0 mg PO QAM 12/21/18 11/18/23 History (120 mg-180 mg) capsule (Fish Oil) xooqkqmi-lat-gzyys acid 0.4 0 tab PO QAM 09/05/20 11/18/23 History mg-lycopene 300 mcg-lutein 250 mcg tablet (Centrum Silver) atorvastatin 10 mg tablet 10 mg PO HS #90 tabs 12/23/22 11/18/23 Rx warfarin 5 mg tablet See Rx Instructions .Route 12/23/22 11/18/23 Rx .COMPLEX #180 tabs fluticasone fur. 100 mcg-umeclid 1 inh inhalation DAILY #60 ea 01/21/23 11/18/23 Rx 62.5 mcg-vilant 25 mcg inhalat.powder (Trelegy Ellipta) finasteride 5 mg tablet 5 mg PO DAILY #90 tabs 10/03/23 11/18/23 Rx glucosamine 750 fk-mszpdmisfdg-sgi 0 tab PO DAILY 10/24/23 11/18/23 History no1 644 mg-C 30 mg-ana 1 mg tablet (Osteo Bi-Flex Triple Strength) triamcinolone acetonide 0.5 % 1 applic topical DAILY #15 grams 10/24/23 11/18/23 Rx topical cream tramadol 50 mg tablet 50 mg PO DIRECTED PRN Pain 11/16/23 11/18/23 History acetaminophen 500 mg tablet 1,000 mg (2 x 500 mg) PO Q8H PRN 11/30/23 Rx (Tylenol Extra Strength) fever or pain #30 tabs diclofenac sodium 1 % topical gel 2 g EXT BID #100 grams 11/30/23 Rx (Voltaren Arthritis Pain) docusate sodium 100 mg capsule 100 mg PO BID PRN constipation #30 11/30/23 Rx caps famotidine 20 mg tablet 20 mg PO BID #60 tabs 11/30/23 Rx gabapentin 300 mg capsule 300 mg PO TID 30 days #90 caps 11/30/23 Rx lidocaine 5 % topical patch 1 patch transdermal QAM #15 ea 11/30/23 Rx oxycodone 5 mg tablet 5 - 10 mg (1 - 2 x 5 mg) PO Q6H 11/30/23 Rx PRN pain #14 tabs polyethylene glycol 3350 17 gram 17 g PO DAILY PRN constipation #14 11/30/23 Rx oral powder packet (Miralax) ea prednisone 20 mg tablet 20 mg PO DAILY #3 tabs 11/30/23 Rx sennosides 8.6 mg tablet (Senokot) 17.2 mg (2 x 8.6 mg) PO QAM #14 11/30/23 Rx tabs Patient History Medical History (Updated 12/01/23 @ 09:30 by Marcial Ren PA-C) Lumbosacral radiculopathy Spinal stenosis of lumbar region Colon polyp Varicose vein of leg History of SCC (squamous cell carcinoma) of skin History of basal cell carcinoma Diverticulosis of colon BPH (benign prostatic hyperplasia) Aortic stenosis, moderate pt unaware History of kidney stones COPD (chronic obstructive pulmonary disease) pt unaware Gangrenous cholecystitis Cholelithiasis and cholecystitis without obstruction H/O deep venous thrombosis over 10 yrs ago> Warfarin > unknown cause Abdominal pain resolved per pt Chest pain at rest Pneumonia resolved Hypertension Bladder stone Surgical History History of colonoscopy History of tooth extraction S/P laparoscopic cholecystectomy 11/24/20 Dr. Carlos A Jacobo- Acute cholecystitis with gangrene gallbladder S/P trigger finger release bilat hands multiple times Basal cell carcinoma with removal from forehead/back Family History Brother Prostate cancer Other Family history non-contributory Denies family history of Ovarian cancer Myocardial infarction Breast cancer Colorectal cancer Social History Smoking Status: Current every day smoker Tobacco Type: Cigarettes Cigarettes Per Day: on occasion; Second Hand Exposure: No; Do You Dip or Chew Tobacco: No; Hx Alcohol Use: Yes Alcohol type: beer Alcohol Intake Frequency: Monthly or Less Hx Substance Use: No Preferred Language: [place] Communication Ability: Effective Visual Impairment: No Limitations Hearing Ability: Normal [employer] Assessment Specialist Required: No Beliefs That Will Affect Care: None marital status: Current Living Situation: Alone current occupational status: retired How many Children do You have: 3 Other Information That Helps Us Care for You: No Feels Safe at Home: Yes Safety Concerns: Feels Safe At This Time Childhood Exposure to Second-Hand Smoke: Yes Diet: regular caffeine: Yes during the past year weight has: remained stable Dental Care, Regularly: Yes Physical Activity Frequency: Daily Seatbelt Use: always Sunscreen Use: Yes Do you think of yourself as: straight/heterosexual Gender Identity: Male Assistive Devices: Walker Physical Exam Physical Exam: GENERAL: Speech and cognition is intact. Mood and affect is appropriate. Does not appear in acute distress. Seated in bedside chair. HEAD: Normocephalic; atraumatic. NECK: Trachea is midline. CHEST: Regular chest respiration and excursion. EXTREMITIES: No TTP. Distal sensation and pulses intact bilaterally. Diminished sensation to the bilateral lower legs, ankles, and feet. Hemosiderin staining present bilaterally with pitting edema noted. BACK: + lumbosacral tenderness.Inspection/palpation demonstrates loss of normal lumbar lordotic curvature. NEURO: CN II-XII grossly intact with no focal deficits noted. Awake, alert, and oriented x 3. SKIN: No lesions, erythema, or rashes noted. LOWER EXTREMITIES: R Hip flexion 5/5; hip extension 4/5; knee extension 5/5; knee flexion 4/5; ankle dorsiflexion 4+/5; ankle plantar flexion 4+/5; EHL 5/5 L Hip flexion 5/5; hip extension 4/5; knee extension 5/5; knee flexion 4/5; ankle dorsiflexion 4+/5; ankle plantar flexion 4+/5; EHL 5/5 Results (Pain Clinic) Diagnostic Review MRI Findings: MRI OF THE LUMBAR SPINE WITHOUT IV CONTRAST CLINICAL HISTORY: Compression fracture. COMPARISON STUDY: Radiographs of the lumbar spine dated 08/27/2011. Abdominal CT dated 11/13/2023. TECHNIQUE: MRI of the lumbar spine is performed utilizing various T1 and T2- weighted sequences in the axial and sagittal planes. IV contrast was not administered for this examination. FINDINGS: Lumbar spine: A transitional lumbosacral segment will be labeled S1 for the purposes of this examination. There is a mild ogsuu-lp-zuxlfkpr inferior endplate compression fracture of L4 with corresponding marrow edema. No retropulsion of fragments is identified. There is no evidence of posterior element involvement. No additional acute fracture is identified. Vertebral body height is otherwise maintained throughout the lumbar spine. Alignment is preserved. There is mild hyperlordosis. Small anterior and lateral marginal osteophytes are seen throughout. The transverse and spinous processes appear intact. A hemangioma is noted in the body of L1. No destructive bony lesion is seen. Intervertebral discs: Disc desiccation and mild loss of height is seen throughout the lumbar spine. Spinal cord: The visualized spinal cord is normal in morphology and signal intensity. The conus medullaris terminates at the level of L2. The nerve roots of the cauda equina are normal in morphology. L1-L2: Unremarkable. This level is only assessed on the sagittal sequences. L2-L3: There is broad-based posterior disc bulge, which abuts the transiting nerve roots. There is no significant acquired compromise of the central canal. Lateral disc bulge contributes to bilateral subarticular stenosis. In conjunction with facet arthropathy, there is mild bilateral neural foraminal stenosis. L3-L4: There is broad-based posterior disc bulge with annular fissure, which abuts the transiting nerve roots. In conjunction with hypertrophy of the ligamentum flavum, there is hfzl-av-pcpxllfx central canal stenosis at this level with a minimum AP diameter of 7 mm. Lateral disc bulges contribute to bilateral subarticular stenosis, left greater than right. This may abut the exiting left L3 nerve root. In conjunction with facet arthropathy, there is mild left neural foraminal stenosis. L4-L5: There is mild posterior disc bulge. This abuts the transiting nerve roots. No significant acquired compromise of the central canal is seen. Lateral disc bulges contribute to bilateral subarticular stenosis. This may abut the exiting bilateral L4 nerve roots. In conjunction with facet arthropathy, there is tjbvqnmq-nd-pckcjn bilateral neural foraminal stenosis. L5-S1: There is minimal posterior disc bulge with annular fissure. No significant acquired compromise of the central canal is seen. Lateral disc bulge is seen bilaterally, right greater than left. This contributes to bilateral subarticular stenosis. This may impinge on the exiting bilateral L5 nerve roots. In conjunction with facet arthropathy, there is vmctpbmw-md-amfgtu right and mild left neural foraminal stenosis. Sacrum: The visualized sacrum is normal in morphology and signal intensity. Soft tissues: The paraspinous soft tissues are normal as imaged. The retroperitoneal structures are grossly unremarkable but incompletely evaluated. Bladder calculi are noted in the pelvis. There is diverticulosis of the sigmoid colon. IMPRESSION: 1. Ajgzq-ye-eqqzcvdg inferior endplate compression fracture of L4 with mild loss of height. No retropulsed fragments are identified. 2. No additional acute fracture is seen. 3. Spondylotic change as above. See discussion for detailed level by level analysis. 4. Bladder calculi are noted. 5. Additional findings as above. Dictated: 11/18/2023 7:07 PM Transcribed: 11/18/2023 7:24 PM Shane [id number] [email or web address] Electronically signed by: Anthony Beyer M.D. 11/18/2023 7:35 PM Dictated: 11/18/231906 Transcribed: 11/18/231923 Radiology Findings: LUMBAR SPINE 3 VIEWS CLINICAL HISTORY: Low back pain. FINDINGS: 3 standing views of the lumbar spine are compared to study dated 08/27/2011. Correlation is made with MRI of the lumbar spine dated 11/18/2023. The skeletal structures are osteopenic. There is a subacute inferior endplate compression fracture of L4 with mild loss of height. This is similar to the 11/18/2023 MRI. Vertebral body height is otherwise maintained throughout the lumbar spine. There is minimal anterolisthesis at L5-S1. Alignment is otherwise preserved. Anterior and lateral marginal osteophytes are seen throughout. The transverse and spinous processes appear intact. There is mild multilevel degenerative disc space narrowing. Facet arthropathy is seen in the chg-iy-lekwz lumbar region. The imaged bony pelvis appears intact. Degenerative sclerosis is noted in the sacroiliac joints. Cholecystectomy clips and an IVC filter are in place. There is no bowel obstruction. Advanced atherosclerotic calcification is noted in the abdominal aorta. Bladder calculi are seen in the pelvis. IMPRESSION: 1. A subacute inferior endplate compression deformity of L4 is similar to previous. 2. Osteopenia and spondylotic change as above. 3. Bladder calculi are noted. Dictated: 11/26/2023 3:35 PM Transcribed: 11/26/2023 3:50 PM Shane [id number] [email or web address] Electronically signed by: Anthony Beyer M.D. 11/26/2023 5:11 PM Dictated: 11/26/23 1535 Transcribed: 11/26/23 1550
[2023-11-28 14:08] LABS: Creatine Kinase 92 U/L (30-223)
--- NOTE | 2023-11-28 14:40 | Cardiology Progress Note ---
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 No indication for TAVR or other intervention currently. Continue to monitor valve pathology with periodic echocardiograms (next could be 1 year from now). If steroid injection is ineffective, could reconsider surgical intervention after further discussion of risk/benefits and shared decision making. Cardiology follow-up for valvular disease could be on an as needed basis when he becomes symptomatic. Admission and Anticipated Discharge Date Admission Date: November 18, 2023 Subjective Uneventful night. Still with leg pain on attempts to ambulate, felt secondary to lumbar fracture. No chest pain, dyspnea, palpitations, or lightheadedness. After discussion of risk/benefits with Dr. Carlson, patient will be pursuing steroid injection rather than surgical intervention. Physical Exam Physical Exam: No distress. BP normotensive. Pulse 86 bpm and regular. Skin: Stasis changes lower extremities, otherwise no ecchymoses or generalized lesions. HEENT: unremarkable. Neck: JVP at the clavicle at 90 degrees, soft bilateral transmitted murmur heard in the carotids. Lungs: Mildly reduced breath sounds but clear bilaterally. No crackles, wheezes, or accessory muscle use. Cardiac: regular rhythm, an audible aortic closure sound, 2/6 crescendo/decrescendo systolic murmur right upper sternal border rating to the carotids, 2/6 apical holosystolic murmur radiating to the axilla. Abdomen: benign. Extremities: Stasis changes, trace pretibial edema, pulses intact. Neurologic: normal affect and conversation, nonfocal. Results & Data Vital Signs (Past 12 Hours) Vital Signs Temp Pulse Resp BP BP Pulse Ox O2 Del Method 11/28/23 13:02 97.5 F L 86 18 125/71 93 Room Air 11/28/23 08:11 97.5 F L 84 18 158/59 H 99 Room Air Laboratory Results Sodium 135, otherwise normal electrolytes, BUN 32, creatinine 0.79. 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 Z79.01 Compression fracture of lumbar vertebra S32.040G Encounter type: subsequent encounter Fracture healing: with delayed healing Lumbar vertebra fracture level: L4 (2) COPD (chronic obstructive pulmonary disease) COPD type: unspecified COPD Qualified Code(s): J44.9 - Chronic obstructive pulmonary disease, unspecified (4) Compression fracture of lumbar vertebra Encounter type: subsequent encounter Fracture healing: with delayed healing Lumbar vertebra fracture level: L4 Qualified Code(s): S32.040G - Wedge compression fracture of fourth lumbar vertebra, subsequent encounter for fracture with delayed healing
--- NOTE | 2023-11-28 16:17 | Communication Note ---
Date of Service: November 28, 2023 CM contacted scheduling at pain management office -- they do NOT want any coumadin stopped while inpatient and they are going to contact the nurse at [facility] to stop medication and schedule so that nothing gets messed up in the transfer.
[2023-11-28] MEDS: ACETAMINOPHEN 500 MG TAB PO PRN (19:32)
[2023-11-28] MEDS: FAMOTIDINE 20 MG TAB PO SCH (21:20)
[2023-11-29 07:22] LABS: INR 2.5 (0.9-1.1); Prothrombin Time 25.7 Seconds (9.0-12.0)
--- NOTE | 2023-11-29 08:17 | Hospitalist Progress Note ---
Date of Service November 29, 2023 Assessment & Plan (1) Fall: Plan: Patient sustained a ground-level fall on 11/18; recurrent falls in the setting of recent back injury- No head strike, LOC, dizziness/lightheadedness prior to fall, or tripping Has been seen in ED on 11/[address] Carlson --> recommended brace Head CT - no acute intracranial findings CXR - no acute findings Bilateral pelvic x-ray revealed no acute abnormalities Ortho spine consulted (Dr Moreno) - MRI - L4 Compression fracture, moderate foraminal but no significant central stenosis - Recommend lumbosacral brace , in room Pain control: - topical lidocaine patch, Tylenol, oxycodone 5-10mg as needed. Calcitonin nasal spray -Dexamethasone transitioned to PO prednisone for COPD exacerbation (see below), tapering -Gabapentin increased to 300mg TID and continuing current dose Discussed with patient on 11/25 given ongoing pain/concerns for lumbar radiculopathy in region L3-L4/L4-L5 and discussed with Dr Carlson , consult placed. Standing films ordered. Agreed radiculopathy likely from back and increased pain w/ standing during evaluation and consultation placed for pain management for consideration for injection --> After discussion, patient wanting to try the injection with pain management, which will be arranged after discharge. Contacted PCP office and ok w/ holding coumadin x 7 days without need for bridge given DVT >3 months out/IVC in place CM contacted scheduling at pain management office afternoon 11/27 -- they do NOT want any coumadin stopped while inpatient and they are going to contact the nurse at [facility] to stop medication and schedule so that timing is appropriate in case not able to get in right away (anticipating injection on per prior discussion) Pain presently controlled PT/OT consults w/ recs for rehab --> [facility] to have bed on Friday hopefully Updated son on phone 11/28 (2) Closed compression fracture of L4 vertebra: Plan: Patient first noticed lower back/leg pain on Thursday 11/09 Chiropractor manipulation on Saturday 11/11 A/P CT on 11/13 noted mild acute L4 compression deformity Vit D not deficient as above Calcitonin nasal spray, pain control, brace as outlined above and will be planning for rehab at [facility] Dexamethasone transitioned to prednisone (also covering for COPD exacerbation as below) Dr Carlson consulted as above, also pain management --> patient wanting to pursue injection. Planning to have Pain management contact [facility] on Friday to arrange for date/timing to hold his coumadin. (3) COPD (chronic obstructive pulmonary disease): Plan: w/ exacerbation w/ reports of increased sputum/wheezing on exam prior. procal negative dexamethasone for back as above --> transitioned to prednisone PO daily and tapering by 10mg q2d to complete course Did get lasix PO x 1 on 11/25, 11/26 and improvement in swelling/volume status with his aortic stenosis and monitoring Pepcid BID for GI proph. Speech consulted as well for complaints of swallowing/things getting stuck at times? Remains on ROOM AIR (4) H/O deep venous thrombosis: Plan: On coumadin for hx DVT (also has IVC filter in place) Goal 2-3, managed by PCP and reported typically well controlled Home regimen SuWeSa 7.5mg, MoTuFr 10mg, no dose Supratherapeutic INR at 5.3 on arrival - held Coumadin and reduced to MWF 5mg, SSTR 7.5mg (7.5mg weekly reduction, ~14% reduction) INR 3.2 on 11/23 and Coumadin resumed but repeat up to 4.2 and again held and resumed with INR 3.0 and repeat 1.9 but normalized 2.3 Patient continuing on his usual coumadin but as above, will be planning to hold coumadin once pain management contacting [facility] Friday/once at rehab to confirm date prior to holding INR stable at 2.5 and will monitor Consider f/u coag clinic given INR fluctuations, following w/ PCP at present (5) Hyperlipidemia: Plan: Continue atorvastatin -- placed on hold given LFT elevation. No abdominal pain reported and TB wnl. ?medication related -- trending down on repeat and will continue to hold his statin for now. --> Tylenol changed to prn (had been scheduled q8h) Monitor (6) BPH (benign prostatic hyperplasia): Plan: Does have hx bladder stones (mentioned on CTAP on arrival, follows w/ Dr Arce) Continues on finasteride Episode of urinary retention on 11/19, straight cath'd and UA w/o signs of infection (blood likely from cath) --> burning with urination and req again straight cath (UA again without infection) Fitzpatrick placed on 11/20 --> recommend keeping in place and arranging for urology outpt for voiding trial. Flomax started 11/21 (not on at baseline) and continued --will need new rx at discharge UOP acceptable -- monitor (7) Aortic stenosis, severe: Plan: Chronic; noted slightly more edema on 11/25, ?2nd to steroids -- given lasix 40mg PO x 1, additional dose on 11/26 and appearing stable at present time. No significant volume overload with reducing steroids ECHO w/o significant change on repeat. See cards note, consulted for clearance if had wanted to undergo surgery route for pre-op clearance Monitor weights/output Plan DVT proph: remains on coumadin for above however [facility] will need contacted by CM on Friday/once there to discuss timing to hold for outpatient injection as outlined above Dispo: PT/OT rec rehab--> [facility] to have bed on Friday, CM following Updated son at bedside 11/27, via phone 11/28 Admission and Anticipated Discharge Date Admission Date: November 18, 2023 Supervising Physician Co-Signing Physician Notes The patient was not seen by me. The chart was reviewed. Case discussed with TANIKA Kincaid. Agree with assessment and plan Subjective Evaluated around lunch, sitting up in the chair, talking with son on phone. Reporting pain controlled. Slept better yesterday. Pain controlled. Pepcid ordered, improvement in swallowing complaints and states seen by someone from speech this morning and tolerated crackers and pudding and denied any issues. Denied chest pain/shortness of breath. Discussed with patient and son on the phone about [facility] and communication with pain management once he gets there to confirm time for injection and then will hold coumadin once confirmed to prevent holding this and then not having the injection scheduled. Discussed can give [facility] providers a heads up on plans prior to discharge to ensure no issues with follow-up. Physical Exam Physical Exam: General: 83yo male sitting up in chair, NAD, talking with son on the phone, appears improved HEENT: head atraumatic, normocephalic, mmm, trachea midline Resp: even/unlabored,diminished in the bases, faint exp wheeze resolving, +c ough/sputum production but remaining on room air 92% CV: RRR, +holosystolic murmur, +b/l LE edema improved/at baseline, chronic venous stasis changes noted GI: +BS, soft/NT, less distension (+BM yesterday) : yellow urine present in bag MSK/Neuro: LSO brace in place with patient up in the chair, continued radiculopathy R leg to level of knee, stable at rest (worsened with standing) Psych: AOx3, cooperative with exam Results & Data Results & Data Vital Signs (Past 12 Hours) Vital Signs Temp Pulse Resp BP Pulse Ox O2 Del Method 11/29/23 07:12 36.4 C L 72 16 131/69 92 Room Air 11/28/23 20:57 36.6 C 85 17 159/79 H 95 Room Air Laboratory Results 11/29/23 11/29/23 11/28/23 Range/Units 06:07 06:04 07:04 PT 25.7 H (9.0-12.0) Seconds INR 2.5 H (0.9-1.1) Sodium 135 L (136-145) mmol/L Potassium 4.3 (3.5-5.1) mmol/L Chloride 102 (98-107) mmol/L Carbon Dioxide 28 (21-32) mmol/L Anion Gap 5 (3-11) BUN 30 H (6-23) mg/dl Creatinine 0.68 (0.6-1.4) mg/dl Est Cr Clr Drug Dosing 79.4 ml/min Est GFR ( Amer) 100.9 ml/min Est GFR (Non-Af Amer) 87.1 ml/min BUN/Creatinine Ratio 44.1 H (10-20) Glucose 86 (70-99(Fasting)) mg/dl Calcium 8.7 (8.6-10.3) mg/dl Magnesium 1.9 (1.7-2.4) mg/dl Total Bilirubin 0.7 (0.2-1.0) mg/dl Direct Bilirubin 0.2 (0-0.2) mg/dl AST 35 (13-39) U/L ALT 63 H (7-52) U/L Alkaline Phosphatase 108 H (34-104) U/L Total Creatine Kinase 92 (30-223) U/L Total Protein 5.5 L (6.0-8.3) gm/dl Albumin 3.2 L (3.4-5.0) gm/dl PG Care Time/CCT Total # of Minutes Spent Total Time Spent with Patient: Total time spent is greater than 50% in coordination of care (as documented) at patient's floor/unit and/or counseling patient: Coding Level of Care Code 12986 SUB INP/OBS CARE 3/50MIN Diagnoses Fall W19.XXXA Closed compression fracture of L4 vertebra S32.040A Chronic obstructive pulmonary disease, unspecified COPD type J44.9 COPD type: unspecified COPD H/O deep venous thrombosis Z86.718 Pure hypercholesterolemia E78.00 Hyperlipidemia type: pure hypercholesterolemia BPH (benign prostatic hyperplasia) N40.0 Aortic stenosis, severe I35.0 (3) COPD (chronic obstructive pulmonary disease) COPD type: unspecified COPD Qualified Code(s): J44.9 - Chronic obstructive pulmonary disease, unspecified (5) Hyperlipidemia Hyperlipidemia type: pure hypercholesterolemia Qualified Code(s): E78.00 - Pure hypercholesterolemia, unspecified
[2023-11-29 09:13] LABS: Albumin Level 3.2 gm/dl (3.4-5.0); BUN Creatinine Ratio 44.1 (10-20); Bilirubin Direct 0.2 mg/dl (0-0.2); Bilirubin,Total 0.7 mg/dl (0.2-1.0); Calcium 8.7 mg/dl (8.6-10.3); Creatinine Clr Calc Pharmacy 79.4 ml/min; Est GFR (African American) 100.9 ml/min; Est GFR (Non-African American) 87.1 ml/min; Magnesium 1.9 mg/dl (1.7-2.4); Potassium 4.3 mmol/L (3.5-5.1); Total Protein 5.5 gm/dl (6.0-8.3)
[2023-11-29] MEDS: predniSONE 20 MG TAB PO SCH (09:45)
[2023-11-30 06:30] LABS: Hematocrit (blood only) 48.5 % (42.0-52.0); Hemoglobin 16.7 g/dl (14.0-18.0); Mean Corpuscular Hemoglobin 31.5 pg (25.0-34.0); Mean Corpuscular Hgb Conc 34.4 g/dL (32.0-36.0); Mean Corpuscular Volume 91.3 fL (80.0-100.0); Platelet Count 275 K/uL (130-400); RDW Coefficient of Variation 13.2 % (11.5-14.5); RDW Standard Deviation 44.5 fL (36.4-46.3); Red Blood Count 5.31 M/uL (4.70-6.10); White Blood Count 10.79 K/ul (4.8-10.8)
[2023-11-30 06:45] LABS: Albumin Globulin Ratio 1.4 (0.9-2); Albumin Level 3.4 gm/dl (3.4-5.0); BUN Creatinine Ratio 37.9 (10-20); Bilirubin,Total 0.8 mg/dl (0.2-1.0); Calcium 8.9 mg/dl (8.6-10.3); Creatinine Clr Calc Pharmacy 81.8 ml/min; Est GFR (African American) 102.2 ml/min; Est GFR (Non-African American) 88.2 ml/min; Globulin 2.5 gm/dl (2.5-4.0); Potassium 4.4 mmol/L (3.5-5.1); Total Protein 5.9 gm/dl (6.0-8.3)
[2023-11-30 06:51] LABS: INR 1.8 (0.9-1.1)
--- NOTE | 2023-11-30 08:15 | Hospitalist Progress Note ---
Date of Service November 30, 2023 Assessment & Plan (1) Fall: Plan: Patient sustained a ground-level fall on 11/18; recurrent falls in the setting of recent back injury- No head strike, LOC, dizziness/lightheadedness prior to fall, or tripping Has been seen in ED on 11/[address] Carlson --> recommended brace Head CT - no acute intracranial findings CXR - no acute findings Bilateral pelvic x-ray revealed no acute abnormalities Ortho spine consulted (Dr Moreno) - MRI - L4 Compression fracture, moderate foraminal but no significant central stenosis - Recommend lumbosacral brace , in room Pain control: - topical lidocaine patch, Tylenol, oxycodone 5-10mg as needed. Calcitonin nasal spray -Dexamethasone transitioned to PO prednisone for COPD exacerbation (see below), tapering -Gabapentin increased to 300mg TID and continuing current dose Discussed with patient on 11/25 given ongoing pain/concerns for lumbar radiculopathy in region L3-L4/L4-L5 and discussed with Dr Carlson , consult placed. Standing films ordered. Agreed radiculopathy likely from back and increased pain w/ standing during evaluation and consultation placed for pain management for consideration for injection --> After discussion, patient wanting to try the injection with pain management, which will be arranged after discharge. Contacted PCP office and ok w/ holding coumadin x 7 days without need for bridge given DVT >3 months out/IVC in place CM contacted scheduling at pain management office afternoon 11/27-- they do NOT want any coumadin stopped while inpatient and they are going to contact the nurse at [facility] to stop medication and schedule so that timing is appropriate in case not able to get in right away (anticipating injection on per prior discussion) Contacted Dr Baez at [facility] afternoon 11/28 to discuss plan and that Pain Management is to contact them with date for injection/timing to hold coumadin to ensure this does not get missed. INR 1.8 on AM labs however got 7.5mg coumadin day prior and will continue current dose for now Hopefully to [facility] in AM per CM last week. Son updated on phone 11/28 and provided number for nurses station if any questions/concerns in the meantime. (2) Closed compression fracture of L4 vertebra: Plan: Patient first noticed lower back/leg pain on Thursday 11/09 Chiropractor manipulation on Saturday 11/11 A/P CT on 11/13 noted mild acute L4 compression deformity Vit D not deficient as above Calcitonin nasal spray, pain control, brace as outlined above and will be planning for rehab at [place] Dexamethasone transitioned to prednisone (also covering for COPD exacerbation as below) Dr Carlson consulted as above, also pain management--> patient wanting to pursue injection. Planning to have Pain management contact [facility] on Friday to arrange for date/timing to hold his coumadin as outlined above (3) COPD (chronic obstructive pulmonary disease): Plan: w/ exacerbation w/ reports of increased sputum/wheezing on exam prior. procal negative dexamethasone for back as above--> transitioned to prednisone PO daily and tapering by 10mg q2d to complete course (currently on 30mg, decreasing to 20mg for AM 11/30) -Did get lasix PO x 1 on 11/25, 11/26 and improvement in swelling/volume status with his aortic stenosis and monitoring and not appearing significantly volume overloaded at present but will monitor for need for additional dosing while on taper CXR w/o acute disease per report, remains on RA Pepcid BID for GI proph and improved appetite Speech consulted as well for complaints of swallowing/things getting stuck at times? -- more oropharyngeal, added gravies/sauces. Of note, patient didn't have his partial and wanted crackers/tolerated today without issue. -Outpt f/u (4) H/O deep venous thrombosis: Plan: On coumadin for hx DVT (also has IVC filter in place) Goal 2-3, managed by PCP and reported typically well controlled Home regimen SuWeSa 7.5mg, MoTuFr 10mg, no dose Supratherapeutic INR at 5.3 on arrival - held Coumadin and reduced to MWF 5mg, SSTR 7.5mg (7.5mg weekly reduction, ~14% reduction) INR 3.2 on 11/23 and Coumadin resumed but repeat up to 4.2 and again held and resumed with INR 3.0 and repeat 1.9 but normalized 2.3 Patient continuing on his usual coumadin at present time --> INR 1.8 on AM labs 11/29 but given his 7.5mg dose yesterday and will monitor in AM. If remains low can consider increasing back to usual dose give 7.5mg weekly reduction for supratherapeutic INR on admission Timing to hold coumadin for injection as above, per PCP not need for lovenox bridging (5) Hyperlipidemia: Plan: Continue atorvastatin -- placed on hold given LFT elevation albeit minimal. No abdominal pain reported LFTs remains about the same and will continue to hold statin Of note, had been scheduled tylenol 1gm q8h and changed to prn Monitor labs in AM (6) BPH (benign prostatic hyperplasia): Plan: Does have hx bladder stones (mentioned on CTAP on arrival, follows w/ Dr Arce) Continues on finasteride, flomax Episode of urinary retention on 11/19, straight cath'd and UA w/o signs of infection (blood likely from cath) --> burning with urination and req again straight cath (UA again without infection) and waterman placed on 11/20 *Flomax was started on 11/21 and not on at baseline and will need rx at discharge Will need urology fu at discharge for voiding trial (7) Aortic stenosis, severe: Plan: Chronic; noted slightly more edema on 11/25, ?2nd to steroids -- given lasix 40mg PO x 1, additional dose on 11/26 and appearing stable at present time and holding off furt her lasix for now. Reducing steroids as taper as above ECHO w/o significant change and was obtained in case of possible need for surgery for lumbar radiculopathy as above as well as cardiology consult. Continued routine f/u at discharge/monitoring of his Plan DVT proph: remains on coumadin for above however [facility] will need contacted by pain management office for timing of injection. Contacted provider at [facility] to discuss case this weekend. Hopeful discharge to [facility] tomorrow Admission and Anticipated Discharge Date Admission Date: November 18, 2023 Supervising Physician Co-Signing Physician Notes The patient was not seen by me. The chart was reviewed. Case discussed with TANIKA Kincaid. Agree with assessment and plan Subjective Eval this afternoon, sitting up in the chair eating lunch. Soup/broccolli. Wanted crackers -- did not have partial plate yesterday but has today, have been provided. Discussed discharge to [facility] tomorrow - will let him know time in AM. Also discussed I spoke with Dr Baez about plan for dischagre last evening and about coodination with pain management for injection. NO CP/SOB, pain controlled at present. Questions/concerns addressed at this time. Physical Exam Physical Exam: General: 83yo male sitting up in chair, NAD, talking with his roommate, appears improved/stable HEENT: head atraumatic, normocephalic, mmm, trachea midline Resp: even/unlabored,diminished in the bases, faint exp wheeze resolving, +cough/sputum production but remaining on room air 92% CV: RRR, +holosystolic murmur, +b/l LE edema improved/at baseline, chronic venous stasis changes noted GI: +BS, soft/NT, less distension (+BM yesterday) : yellow urine present in bag MSK/Neuro: LSO brace in place with patient up in the chair, continued radiculopathy R leg to level of knee, stable at rest (worsened with standing) Psych: AOx3, cooperative with exam Results & Data Results & Data Vital Signs (Past 12 Hours) Vital Signs Temp Pulse Resp BP BP Pulse Ox O2 Del Method 11/30/23 06:59 36.5 C 87 17 119/74 94 Room Air 11/29/23 19:56 36.7 C 86 17 156/64 H 95 Room Air Laboratory Results 11/30/23 Range/Units 05:47 WBC 10.79 (4.8-10.8) K/ul RBC 5.31 (4.70-6.10) M/uL Hgb 16.7 (14.0-18.0) g/dl Hct 48.5 (42.0-52.0) % MCV 91.3 (80.0-100.0) fL MCH 31.5 (25.0-34.0) pg MCHC 34.4 (32.0-36.0) g/dL RDW Std Deviation 44.5 (36.4-46.3) fL RDW Coeff of Mu 13.2 (11.5-14.5) % Plt Count 275 (130-400) K/uL MPV 9.0 L (9.4-12.4) fL PT 19.0 H (9.0-12.0) Seconds INR 1.8 H (0.9-1.1) Sodium 136 (136-145) mmol/L Potassium 4.4 (3.5-5.1) mmol/L Chloride 103 (98-107) mmol/L Carbon Dioxide 28 (21-32) mmol/L Anion Gap 5 (3-11) BUN 25 H (6-23) mg/dl Creatinine 0.66 (0.6-1.4) mg/dl Est Cr Clr Drug Dosing 81.8 ml/min Est GFR ( Amer) 102.2 ml/min Est GFR (Non-Af Amer) 88.2 ml/min BUN/Creatinine Ratio 37.9 H (10-20) Glucose 87 (70-99(Fasting)) mg/dl Calcium 8.9 (8.6-10.3) mg/dl Total Bilirubin 0.8 (0.2-1.0) mg/dl AST 33 (13-39) U/L ALT 65 H (7-52) U/L Alkaline Phosphatase 114 H (34-104) U/L Total Protein 5.9 L (6.0-8.3) gm/dl Albumin 3.4 (3.4-5.0) gm/dl Globulin 2.5 (2.5-4.0) gm/dl Albumin/Globulin Ratio 1.4 (0.9-2) Diagnostic Findings Chest X-Ray 11/30/23 07:00 XR chest 1V portable CLINICAL HISTORY: f/u, copd exacerbation TECHNIQUE: Single frontal radiograph of the chest was obtained. Comparison: Comparison is made to chest radiograph 11/18/2023 FINDINGS: No lines and tubes are seen. The cardiomediastinal silhouette is stable. The lungs are clear. No evidence of pleural effusion or pneumothorax. IMPRESSION: No acute chest disease. ACT 112: Negative or not required by law. Electronically signed by: Vinay Branch M.D. 11/30/2023 9:00 AM PG Care Time/CCT Total # of Minutes Spent Total Time Spent with Patient: Total time spent is greater than 50% in coordination of care (as documented) at patient's floor/unit and/or counseling patient: Coding Level of Care Code 03772 SUB INP/OBS CARE 3/50MIN Diagnoses Fall W19.XXXA Closed compression fracture of L4 vertebra S32.040A Chronic obstructive pulmonary disease, unspecified COPD type J44.9 COPD type: unspecified COPD H/O deep venous thrombosis Z86.718 Pure hypercholesterolemia E78.00 Hyperlipidemia type: pure hypercholesterolemia BPH (benign prostatic hyperplasia) N40.0 Aortic stenosis, severe I35.0 (3) COPD (chronic obstructive pulmonary disease) COPD type: unspecified COPD Qualified Code(s): J44.9 - Chronic obstructive pulmonary disease, unspecified (5) Hyperlipidemia Hyperlipidemia type: pure hypercholesterolemia Qualified Code(s): E78.00 - Pure hypercholesterolemia, unspecified
--- NOTE | 2023-11-30 09:01 | XRay Report ---
XR chest 1V portable CLINICAL HISTORY: f/u, copd exacerbation TECHNIQUE: Single frontal radiograph of the chest was obtained. Comparison: Comparison is made to chest radiograph 11/18/2023 FINDINGS: No lines and tubes are seen. The cardiomediastinal silhouette is stable. The lungs are clear. No evid ence of pleural effusion or pneumothorax. IMPRESSION: No acute chest disease. ACT 112: Negative or not required by law. Electronically signed by: Vinay Branch M.D. 11/30/2023 9:00 AM
[2023-12-01 06:44] LABS: Hematocrit (blood only) 44.3 % (42.0-52.0); Hemoglobin 15.2 g/dl (14.0-18.0); Mean Corpuscular Hemoglobin 31.5 pg (25.0-34.0); Mean Corpuscular Hgb Conc 34.3 g/dL (32.0-36.0); Mean Corpuscular Volume 91.9 fL (80.0-100.0); Mean Platelet Volume 8.8 fL (9.4-12.4); Platelet Count 255 K/uL (130-400); RDW Coefficient of Variation 13.2 % (11.5-14.5); RDW Standard Deviation 44.5 fL (36.4-46.3); Red Blood Count 4.82 M/uL (4.70-6.10); White Blood Count 10.72 K/ul (4.8-10.8)
[2023-12-01 07:23] LABS: BUN Creatinine Ratio 28.2 (10-20); Bilirubin Direct 0.1 mg/dl (0-0.2); Bilirubin,Total 0.5 mg/dl (0.2-1.0); Calcium 8.6 mg/dl (8.6-10.3); Creatinine Clr Calc Pharmacy 69.2 ml/min; Est GFR (African American) 95.4 ml/min; Est GFR (Non-African American) 82.3 ml/min; Magnesium 1.8 mg/dl (1.7-2.4); Potassium 4.4 mmol/L (3.5-5.1); Total Protein 5.2 gm/dl (6.0-8.3)
[2023-12-01 07:43] LABS: INR 2.2 (0.9-1.1); Prothrombin Time 22.8 Seconds (9.0-12.0)
--- NOTE | 2023-12-01 08:08 | Hospitalist Progress Note ---
Date of Service December 01, 2023 Assessment & Plan (1) Fall: Plan: Patient sustained a ground-level fall on 11/18; recurrent falls in the setting of recent back injury- No head strike, LOC, dizziness/lightheadedness prior to fall, or tripping Has been seen in ED on 11/[address] Carlson --> recommended brace Head CT - no acute intracranial findings CXR - no acute findings Bilateral pelvic x-ray revealed no acute abnormalities Ortho spine consulted (Dr Moreno) - MRI - L4 Compression fracture, moderate foraminal but no significant central stenosis - Recommend lumbosacral brace , in room Pain control: - topical lidocaine patch, Tylenol, oxycodone 5-10mg as needed. Calcitonin nasal spray -Dexamethasone transitioned to PO prednisone for COPD exacerbation (see below), tapering -Gabapentin increased to 300mg TID and continuing current dose Discussed with patient on 11/25 given ongoing pain/concerns for lumbar radiculopathy in region L3-L4/L4-L5 and discussed with Dr Carlson , consult placed. Standing films ordered. Agreed radiculopathy likely from back and increased pain w/ standing during evaluation and consultation placed for pain management for consideration for injection --> After discussion, patient wanting to try the injection with pain management, which will be arranged after discharge. Contacted PCP office and ok w/ holding coumadin x 7 days without need for bridge given DVT >3 months out/IVC in place CM contacted scheduling at pain management office afternoon 11/27-- they do NOT want any coumadin stopped while inpatient and they are going to contact the nurse at [facility] to stop medication and schedule so that timing is appropriate in case not able to get in right away (anticipating injection on per prior discussion) Contacted Dr Baez at [facility] afternoon 11/28 to discuss plan and that Pain Management is to contact them with date for injection/timing to hold coumadin to ensure this does not get missed. INR 1.8 on AM labs however got 7.5mg coumadin day prior and will continued on current dose with repeat INR stable 2.2 and will monitor Insurance auth pending, likely not hearing back today but [facility] to be able to accept tomorrow. Messaged Dr Baez of continued inpatient stay/hopeful dc tomorrow. CM to discuss transportation [place] tomorrow (2) Closed compression fracture of L4 vertebra: Plan: Patient first noticed lower back/leg pain on Thursday 11/09 Chiropractor manipulation on Saturday 11/11 A/P CT on 11/13 noted mild acute L4 compression deformity Vit D not deficient as above Calcitonin nasal spray, pain control, brace as outlined above and will be planning for rehab [place] Dexamethasone transitioned to prednisone (also covering for COPD exacerbation as below) Dr Carlson consulted, pain management as above--> patient wanting to pursue injection. Planning to have Pain management contact [facility] on Friday to arrange for date/timing to hold his Coumadin as outlined above (3) COPD (chronic obstructive pulmonary disease): Plan: w/ exacerbation w/ reports of increased sputum/wheezing on exam prior. procal negative dexamethasone for back as above--> transitioned to prednisone PO daily and tapering by 10mg q2d to complete course (currently on 20mg dose, decreasing by 10mg q2d to complete taper) Of note, did get lasix PO x 1 on 11/25, 11/26 and improvement in swelling/volume status with his aortic stenosis and monitoring and not appearing significantly volume overloaded at present but will monitor for need for additional dosing while on taper CXR w/o acute disease per report, remains on RA Pepcid BID for GI proph and improved appetite Speech consulted as well for complaints of swallowing/things getting stuck at times? -- more oropharyngeal, added gravies/sauces. Of note, patient didn't have his partial and wanted crackers/tolerated today without issue. -Outpt f/u (4) H/O deep venous thrombosis: Plan: On coumadin for hx DVT (also has IVC filter in place) Goal 2-3, managed by PCP and reported typically well controlled Home regimen SuWeSa 7.5mg, MoTuFr 10mg, no dose Supratherapeutic INR at 5.3 on arrival - held Coumadin and reduced to MWF 5mg, SSTR 7.5mg (7.5mg weekly reduction, ~14% reduction) INR 3.2 on 11/23 and Coumadin resumed but repeat up to 4.2 and was held/resumed w/ INR 3.0 Did drop to 1.8 on 11/29 however provided 7.5mg dose day prior and stable in range 2.2 and monitoring. IF drops low in AM may need to consider increasing back to prior usual dose ?AC clinic rather than PCP Timing to hold coumadin for injection as above, per PCP no need for lovenox bridging (5) Hyperlipidemia: Plan: Continue atorvastatin -- placed on hold given LFT elevation albeit minimal. No abdominal pain reported LFTs improving w/ continued holding of statin and changing tylenol to prn (had been ordered q8h les) Monitor (6) BPH (benign prostatic hyperplasia): Plan: Does have hx bladder stones (mentioned on CTAP on arrival, follows w/ Dr Arce) Continues on finasteride, flomax Episode of urinary retention on 11/19, straight cath'd and UA w/o signs of infection (blood likely from cath) --> burning with urination and req again straight cath (UA again without infection) and waterman placed on 11/20 *Flomax was started on 11/21 and not on at baseline and will need rx at discharge Will need urology fu at discharge for voiding trial (7) Aortic stenosis, severe: Plan: Chronic; noted slightly more edema on 11/25, ?2nd to steroids -- given Lasix 40mg PO x 1, additional dose on 11/26 and appearing stable at present time and holding off further lasix for now. Reducing steroids as taper as above ECHO w/o significant change and was obtained in case of possible need for surgery for lumbar radiculopathy as above as well as cardiology consult. Continued routine f/u at discharge/monitoring of his Plan DVT proph: remains on coumadin --> [facility] will need contacted by pain management office for timing of injection. Contacted provider at [facility] to discuss case this weekend and updated 11/30 Hopeful discharge to [facility] tomorrow if insurance authorization back, [facility] following Admission and Anticipated Discharge Date Admission Date: November 18, 2023 Subjective Evaluated this morning, sitting up in the chair, reporting he took a walk today and made it the furthest he has all week. Pain controlled on current regimen. He reports has been putting more weight on his left leg when ambulating to take the pressure off the right side. Discussed auth still pending for [facility], likely not going to be able to dc until tomorrow. He notes he was seen by CM this morning and alerted, disappointed about not going today. Alerted Dr Baez of continued inpatient stay overnight and will plan for dc tomorrow. He notes he was alerted about needing ride to get over there but he is worried about getting into family vehicles as they sit low to the ground and worried about bending/twisting. Will discuss w/ CM about safety to transport in personal vehicle/if able to assist with transportation, however he is worried about cost. Discussed weight limit no more than ~10lb to limit further issues. Physical Exam Physical Exam: General: 83yo male sitting up in chair, NAD, appears improved today HEENT: head atraumatic, normocephalic, mmm, trachea midline Resp: even/unlabored, improvement in air entry bilaterally, no further wheezing/cough, on room air CV: RRR, +holosystolic murmur, +b/l LE edema improved/at baseline, chronic venous stasis changes noted GI: +BS, soft/NT, less distension (+BM yesterday) : yellow urine present in bag MSK/Neuro: LSO brace in place with patient up in the chair, continued radiculopathy R leg to level of knee, stable at rest (worsened with standing), and actually improvement in range of motion today with decreased pain, calves nontender, baseline edema at present Psych: AOx3, cooperative with exam Results & Data Results & Data Vital Signs (Past 12 Hours) Vital Signs Temp Pulse Resp BP BP Pulse Ox O2 Del Method 12/01/23 07:49 36.2 C L 80 16 159/78 H 92 Room Air 11/30/23 21:51 36.3 C L 90 18 159/68 H 96 Room Air Laboratory Results 12/01/23 Range/Units 06:19 WBC 10.72 (4.8-10.8) K/ul RBC 4.82 (4.70-6.10) M/uL Hgb 15.2 (14.0-18.0) g/dl Hct 44.3 (42.0-52.0) % MCV 91.9 (80.0-100.0) fL MCH 31.5 (25.0-34.0) pg MCHC 34.3 (32.0-36.0) g/dL RDW Std Deviation 44.5 (36.4-46.3) fL RDW Coeff of Mu 13.2 (11.5-14.5) % Plt Count 255 (130-400) K/uL MPV 8.8 L (9.4-12.4) fL PT 22.8 H (9.0-12.0) Seconds INR 2.2 H (0.9-1.1) Sodium 136 (136-145) mmol/L Potassium 4.4 (3.5-5.1) mmol/L Chloride 103 (98-107) mmol/L Carbon Dioxide 29 (21-32) mmol/L Anion Gap 4 (3-11) BUN 22 (6-23) mg/dl Creatinine 0.78 (0.6-1.4) mg/dl Est Cr Clr Drug Dosing 69.2 ml/min Est GFR ( Amer) 95.4 ml/min Est GFR (Non-Af Amer) 82.3 ml/min BUN/Creatinine Ratio 28.2 H (10-20) Glucose 88 (70-99(Fasting)) mg/dl Calcium 8.6 (8.6-10.3) mg/dl Magnesium 1.8 (1.7-2.4) mg/dl Total Bilirubin 0.5 (0.2-1.0) mg/dl Direct Bilirubin 0.1 (0-0.2) mg/dl AST 36 (13-39) U/L ALT 66 H (7-52) U/L Alkaline Phosphatase 99 (34-104) U/L Total Protein 5.2 L (6.0-8.3) gm/dl Albumin 3.0 L (3.4-5.0) gm/dl PG Care Time/CCT Total # of Minutes Spent Total Time Spent with Patient: Total time spent is greater than 50% in coordination of care (as documented) at patient's floor/unit and/or counseling patient: Coding Level of Care Code 83022 SUB INP/OBS CARE 235MIN Diagnoses Fall W19.XXXA Closed compression fracture of L4 vertebra S32.040A Chronic obstructive pulmonary disease, unspecified COPD type J44.9 COPD type: unspecified COPD H/O deep venous thrombosis Z86.718 Pure hypercholesterolemia E78.00 Hyperlipidemia type: pure hypercholesterolemia BPH (benign prostatic hyperplasia) N40.0 Aortic stenosis, severe I35.0 (3) COPD (chronic obstructive pulmonary disease) COPD type: unspecified COPD Qualified Code(s): J44.9 - Chronic obstructive pulmonary disease, unspecified (5) Hyperlipidemia Hyperlipidemia type: pure hypercholesterolemia Qualified Code(s): E78.00 - Pure hypercholesterolemia, unspecified
--- NOTE | 2023-12-02 09:37 | Discharge Summary ---
Discharge Summary Date of Service December 02, 2023 Notes For Next Care Provider Hospitalized after fall with L4 compression fracture, LSO brace, conservative measures. However not improving and patient now planning for injections to be arranged while at [facility], hold coumadin for 7 days. - Waterman placed for retenton/bladder stones, will need outpatient voiding trial - coumadin decreased, recheck INR in 2-3 days after discharge, would recommend outpatient anticoagulation clinic follow up if poor control Medication Changes From Visit - Coumadin changed to MWF 5mg, SSTR 7.5mg (7.5mg weekly reduction, ~14% reduction - finish steroid taper - oxycodone prn for pain - gabaptentin 300 mg TID - lidocaine patch - flomax added Admission HPI Per Admitting Provider Vikram is an 83-year-old male with PMH of COPD, aortic stenosis, BPH, hyperlipidemia, DVT, and vertigo. He presented via EMS for a ground-level fall the morning of 11/18. Patient reportedly went out for a smoke, and then he felt weak and his legs gave out on him. No LOC. No head strike. Patient did not feel dizzy or lightheaded before falling. He was using his walker at this time. Patient is on warfarin for history of DVTs. Patient reports he landed on all fours in order to catch himself. Of note, patient was diagnosed with a mild acute L4 compression deformity last on 11/13. He is unsure what caused this, but noted his back and leg started to bother him on Thursday 11/09, and then he went to the chiropractor for a manipulation on Saturday 11/11. Patient has now suffered 2 falls, with the first being on Tuesday 11/14 and the second being today on 11/18. Patient was set to receive a lumbar brace from Dr. Carlson's office, but did not have a chance to pick it up yet. He has been taking oxycodone as needed for pain at home, without relief. He was also scheduled for a spine MRI tomorrow on 11/19, but has been having too much pain and was unable to get up after falling today. He is having trouble sleeping, but notes that the most comfortable position is sitting down and bending forward. He rates his lower back pain 5/10, and characterizes it as a sharp intermittent pain that is worse with movement. The pain radiates down both legs, with it being worse going down his right hip and right leg. He denies urinary/bowel issues, saddle anesthesia, or numbness or tingling going down the legs. Patient is a current everyday tobacco cigarette/cigar smoker; 0.5 ppd. No supplemental at home oxygen use. No recent alcohol use. Last BM yesterday on 11/17. Patient did not take his morning medications; last took warfarin the evening of 11/17. Patient is mildly hypotensive at 95/42 at time admission; SpO2 97% on 3L NC. ED course: DuoNeb 3 mL Toradol 10 mg Morphine 4 mg IV NSS 500 mL IV Acetaminophen 1000 mg IV ROS: Patient endorses lower back pain radiating to his legs bilaterally with movement Patient denies fever, chills, night sweats, lightheadedness, dizziness prior to falls, headaches, changes in vision or hearing, chest pain, chest palpitations, pleuritic CP, SOB, abdominal pain, N/V/D, urinary symptoms, blood in the urine or stool, saddle anesthesia, or numbness/tingling in the arms or legs. Principal Dx & Hospital Course #1 = Principal Diagnosis (1) Fall: Patient sustained a ground-level fall on 11/18; recurrent falls in the setting of recent back injury- No head strike, LOC, dizziness/lightheadedness prior to fall, or tripping Has been seen in ED on 11/[address] Carlson --> recommended brace Head CT - no acute intracranial findings CXR - no acute findings Bilateral pelvic x-ray revealed no acute abnormalities Ortho spine consulted (Dr Moreno) - MRI - L4 Compression fracture, moderate foraminal but no significant central stenosis - Recommend lumbosacral brace Pain control: - topical lidocaine patch, Tylenol, oxycodone 5-10mg as needed. Calcitonin nasal spray -Dexamethasone transitioned to PO prednisone for COPD exacerbation (see below), tapering -Gabapentin increased to 300mg TID and continuing current dose Discussed with patient on 11/25 given ongoing pain/concerns for lumbar radiculopathy in region L3-L4/L4-L5 - Dr. Carlson consulted. Agreed radiculopathy likely from back and increased pain w/ standing during evaluation and consultation placed for pain management for consideration for injection - Patient wanting to try the injection with pain management, which will be arranged after discharge. Contacted PCP office and ok w/ holding coumadin x 7 days without need for bridge given DVT >3 months out/IVC in place Prior providered Contacted Dr Baez at [facility] afternoon 11/28 to discuss plan and that Pain Management is to contact them with date for injection/timing to hold coumadin to ensure this does not get missed. I Discharge to [facility] today (2) Closed compression fracture of L4 vertebra: Patient first noticed lower back/leg pain on Thursday 11/09 Chiropractor manipulation on Saturday 11/11 A/P CT on 11/13 noted mild acute L4 compression deformity Vit D not deficient Calcitonin nasal spray, pain control, brace as outlined above and will be planning for rehab at [facility] (3) COPD (chronic obstructive pulmonary disease): w/ exacerbation w/ reports of increased sputum/wheezing on exam prior. procal negative dexamethasone for back as above--> transitioned to prednisone PO daily and tapering by 10mg q2d to complete course (currently on 20mg dose, decreasing by 10mg q2d to complete taper) Of note, did get lasix PO x 1 on 11/25, 11/26 and improvement in swelling/volume status with his aortic stenosis and monitoring and not appearing significantly volume overloaded at present but will monitor for need for additional dosing while on taper Cough/wheezing has improved Pepcid BID for GI proph and improved appetite Speech consulted- for complaints of swallowing/things getting stuck at times -more oropharyngeal, added gravies/sauces. -Outpt f/u (4) H/O deep venous thrombosis: On coumadin for hx DVT (also has IVC filter in place) Goal 2-3, managed by PCP and reported typically well controlled Home regimen SuWeSa 7.5mg, MoTuFr 10mg, no dose Supratherapeutic INR at 5.3 on arrival - held Coumadin and reduced to MWF 5mg, SSTR 7.5mg (7.5mg weekly reduction, ~14% reduction) Recommend recheck INR in 2-3 days after discharge. - If poorly controlled consider anticoagultion clinic rather than PCP managment Timing to hold coumadin for injection as above, per PCP no need for lovenox bridging (5) Hyperlipidemia: Continue atorvastatin -- placed on hold given LFT elevation albeit minimal. No abdominal pain reported LFTs improving w/ continued holding of statin and changing tylenol to prn (had been ordered q8h [facility]) Resume statin 1-2 days after discharge (6) BPH (benign prostatic hyperplasia): Does have hx bladder stones (mentioned on CTAP on arrival, follows w/ Dr Arce) Continues on finasteride, flomax Episode of urinary retention on 11/19, straight cath'd and UA w/o signs of infection (blood likely from cath) --> burning with urination and req again straight cath (UA again without infection) and waterman placed on 11/20 *Flomax was started on 11/21 and not on at baseline and will need rx at discharge Will need urology fu at discharge for voiding trial (7) Aortic stenosis, severe: Chronic; noted slightly more edema on 11/25, ?2nd to steroids -- given Lasix 40mg PO x 1, additional dose on 11/26 and appearing stable at present time and holding off further lasix for now. Reducing steroids as taper as above ECHO w/o significant change and was obtained in case of possible need for surgery for lumbar radiculopathy as above as well as cardiology consult. Continued routine f/u at discharge/monitoring of his Plan Dispo: [facility] to [facility] Discharge Exam General: Sitting up in the chair, NAD, VS as above Resp: normal respiratory effort, no wheezing or cough during exam CV: RRR, + murmur BACK: LSO brace in place Extremities: Moves all extremities, moderate edema 1/2+, patient reports baseline Updated Medication List Medication Instructions Recorded Confirmed Type ucmbqlgf-lpi-vjaxb acid 0.4 0 tab PO QAM 09/05/20 11/18/23 History mg-lycopene 300 mcg-lutein 250 mcg tablet (Centrum Silver) atorvastatin 10 mg tablet 10 mg PO HS #90 tabs 12/23/22 11/18/23 Rx fluticasone fur. 100 mcg-umeclid 1 inh inhalation DAILY #60 ea 01/21/23 11/18/23 Rx 62.5 mcg-vilant 25 mcg inhalat.powder (Trelegy Ellipta) finasteride 5 mg tablet 5 mg PO DAILY #90 tabs 10/03/23 11/18/23 Rx glucosamine 750 sd-afpnuohutek-cmx 0 tab PO DAILY 10/24/23 11/18/23 History no1 644 mg-C 30 mg-ana 1 mg tablet (Osteo Bi-Flex Triple Strength) triamcinolone acetonide 0.5 % 1 applic topical DAILY #15 grams 10/24/23 11/18/23 Rx topical cream acetaminophen 500 mg tablet 1,000 mg (2 x 500 mg) PO Q8H PRN 11/30/23 Rx (Tylenol Extra Strength) fever or pain #30 tabs diclofenac sodium 1 % topical gel 2 g EXT BID #100 grams 11/30/23 Rx (Voltaren Arthritis Pain) docusate sodium 100 mg capsule 100 mg PO BID PRN constipation #30 11/30/23 Rx caps famotidine 20 mg tablet 20 mg PO BID #60 tabs 11/30/23 Rx gabapentin 300 mg capsule 300 mg PO TID 30 days #90 caps 11/30/23 Rx lidocaine 5 % topical patch 1 patch transdermal QAM #15 ea 11/30/23 Rx oxycodone 5 mg tablet 5 - 10 mg (1 - 2 x 5 mg) PO Q6H 11/30/23 Rx PRN pain #14 tabs polyethylene glycol 3350 17 gram 17 g PO DAILY PRN constipation #14 11/30/23 Rx oral powder packet (Miralax) ea prednisone 20 mg tablet 20 mg PO DAILY #3 tabs 11/30/23 Rx sennosides 8.6 mg tablet (Senokot) 17.2 mg (2 x 8.6 mg) PO QAM #14 11/30/23 Rx tabs warfarin 5 mg tablet See Rx Instructions .Route 11/30/23 11/18/23 Rx .COMPLEX #180 tabs Hospital Stay Data Consultations 11/18/23 09:47 ED Decision to Admit Stat 11/18/23 13:13 Consult Orthopedic Spine Surgery Routine 11/26/23 13:46 Consult Orthopedic Surgery Routine 11/27/23 10:50 Consult Anesthesiology Routine Consult Cardiology Routine 11/27/23 10:51 Consult Pain Management Routine Diagnostic Imagining Performed Head CT 11/18/23 07:51 CT OF THE HEAD WITHOUT CONTRAST CLINICAL HISTORY: fall, warfarin COMPARISON STUDY: No previous studies for comparison. CT DOSE: 625.8 mGy.cm TECHNIQUE: Helical axial images of the head were obtained without IV contrast. Automated exposure control was utilized for the study. A dose lowering technique was utilized adhering to the principles of ALARA. FINDINGS: No acute intracranial hemorrhage, midline shift or mass effect is present. The ventricular system is unremarkable. The basal cisterns are patent. No extra-axial collections are present. There are no findings to suggest acute dural sinus thrombosis or acute territorial infarct. White matter hypodensity suggests small vessel disease. There is no calvarial fracture. A small mucous retention cyst within the left maxillary sinus. IMPRESSION: 1. No acute intracranial findings. 2. No calvarial fracture. ACT 112: Negative or not required by law. Electronically signed by: Mariusz Araujo M.D. 11/18/2023 8:16 AM Chest X-Ray 11/18/23 08:00 XR chest 1V portable CLINICAL HISTORY: hypoxia TECHNIQUE: Single frontal radiograph of the chest was obtained. Comparison: Comparison is made to rib series 07/15/2023 FINDINGS: No lines and tubes are seen. Cardiomegaly is noted. The aortic arch is calcified. The lungs are clear. No evidence of pleural effusion or pneumothorax. IMPRESSION: No acute chest disease. Cardiomegaly is noted. ACT 112: Negative or not required by law. Electronically signed by: iVnay Branch M.D. 11/18/2023 9:39 AM Lumbar Spine MRI 11/18/23 10:47 MRI OF THE LUMBAR SPINE WITHOUT IV CONTRAST CLINICAL HISTORY: Compression fracture. COMPARISON STUDY: Radiographs of the lumbar spine dated 08/27/2011. Abdominal CT dated 11/13/2023. TECHNIQUE: MRI of the lumbar spine is performed utilizing various T1 and T2- weighted sequences in the axial and sagittal planes. IV contrast was not administered for this examination. FINDINGS: Lumbar spine: A transitional lumbosacral segment will be labeled S1 for the purposes of this examination. There is a mild cbtap-bp-yltewrkp inferior endplate compression fracture of L4 with corresponding marrow edema. No retropulsion of fragments is identified. There is no evidence of posterior element involvement. No additional acute fracture is identified. Vertebral body height is otherwise maintained throughout the lumbar spine. Alignment is preserved. There is mild hyperlordosis. Small anterior and lateral marginal osteophytes are seen throughout. The transverse and spinous processes appear intact. A hemangioma is noted in the body of L1. No destructive bony lesion is seen. Intervertebral discs: Disc desiccation and mild loss of height is seen throughout the lumbar spine. Spinal cord: The visualized spinal cord is normal in morphology and signal intensity. The conus medullaris terminates at the level of L2. The nerve roots of the cauda equina are normal in morphology. L1-L2: Unremarkable. This level is only assessed on the sagittal sequences. L2-L3: There is broad-based posterior disc bulge, which abuts the transiting nerve roots. There is no significant acquired compromise of the central canal. Lateral disc bulge contributes to bilateral subarticular stenosis. In conjunction with facet arthropathy, there is mild bilateral neural foraminal stenosis. L3-L4: There is broad-based posterior disc bulge with annular fissure, which abuts the transiting nerve roots. In conjunction with hypertrophy of the ligamentum flavum, there is hmmo-jb-xtfyjdvg central canal stenosis at this level with a minimum AP diameter of 7 mm. Lateral disc bulges contribute to bilateral subarticular stenosis, left greater than right. This may abut the exiting left L3 nerve root. In conjunction with facet arthropathy, there is mild left neural foraminal stenosis. L4-L5: There is mild posterior disc bulge. This abuts the transiting nerve roots. No significant acquired compromise of the central canal is seen. Lateral disc bulges contribute to bilateral subarticular stenosis. This may abut the exiting bilateral L4 nerve roots. In conjunction with facet arthropathy, there is vnqvkolv-eu-bzpgea bilateral neural foraminal stenosis. L5-S1: There is minimal posterior disc bulge with annular fissure. No si gnificant acquired compromise of the central canal is seen. Lateral disc bulge is seen bilaterally, right greater than left. This contributes to bilateral subarticular stenosis. This may impinge on the exiting bilateral L5 nerve roots. In conjunction with facet arthropathy, there is fnujsxvg-xd-elaqxl right and mild left neural foraminal stenosis. Sacrum: The visualized sacrum is normal in morphology and signal intensity. Soft tissues: The paraspinous soft tissues are normal as imaged. The retroperitoneal structures are grossly unremarkable but incompletely evaluated. Bladder calculi are noted in the pelvis. There is diverticulosis of the sigmoid colon. IMPRESSION: 1. Apcon-vv-gytjfaex inferior endplate compression fracture of L4 with mild loss of height. No retropulsed fragments are identified. 2. No additional acute fracture is seen. 3. Spondylotic change as above. See discussion for detailed level by level analysis. 4. Bladder calculi are noted. 5. Additional findings as above. Dictated: 11/18/2023 7:07 PM Transcribed: 11/18/2023 7:24 PM Shane [id number] [email or web address] Electronically signed by: Anthony Beyer M.D. 11/18/2023 7:35 PM Hip/Pelvis X-Ray 11/18/23 11:05 XR hip GRAYSON 2v w pelvis CLINICAL HISTORY: B/l hip pain, fall TECHNIQUE: 2 views of the bilateral hips and single frontal view of the pelvis were obtained. Comparison: None available at the time of this dictation. FINDINGS: There is no evidence of an acute fracture. Degenerative changes are seen in the hip joint. Vascular calcifications are noted. IMPRESSION: Degenerative changes without evidence of acute abnormality. ACT 112: Negative or not required by law. Electronically signed by: Vinay Branch M.D. 11/18/2023 12:53 PM Lumbar Spine X-Ray 11/26/23 13:42 LUMBAR SPINE 3 VIEWS CLINICAL HISTORY: Low back pain. FINDINGS: 3 standing views of the lumbar spine are compared to study dated 08/27/2011. Correlation is made with MRI of the lumbar spine dated 11/18/2023. The skeletal structures are osteopenic. There is a subacute inferior endplate compression fracture of L4 with mild loss of height. This is similar to the 11/18/2023 MRI. Vertebral body height is otherwise maintained throughout the lumbar spine. There is minimal anterolisthesis at L5-S1. Alignment is otherwise preserved. Anterior and lateral marginal osteophytes are seen throughout. The transverse and spinous processes appear intact. There is mild multilevel degenerative disc space narrowing. Facet arthropathy is seen in the afa-jh-lujyc lumbar region. The imaged bony pelvis appears intact. Degenerative sclerosis is noted in the sacroiliac joints. Cholecystectomy clips and an IVC filter are in place. There is no bowel obstruction. Advanced atherosclerotic calcification is noted in the abdominal aorta. Bladder calculi are seen in the pelvis. IMPRESSION: 1. A subacute inferior endplate compression deformity of L4 is similar to previous. 2. Osteopenia and spondylotic change as above. 3. Bladder calculi are noted. Dictated: 11/26/2023 3:35 PM Transcribed: 11/26/2023 3:50 PM Shane [id number] [email or web address] Electronically signed by: Anthony Beyer M.D. 11/26/2023 5:11 PM Chest X-Ray 11/30/23 07:00 XR chest 1V portable CLINICAL HISTORY: f/u, copd exacerbation TECHNIQUE: Single frontal radiograph of the chest was obtained. Comparison: Comparison is made to chest radiograph 11/18/2023 FINDINGS: No lines and tubes are seen. The cardiomediastinal silhouette is stable. The lungs are clear. No evidence of pleural effusion or pneumothorax. IMPRESSION: No acute chest disease. ACT 112: Negative or not required by law. Electronically signed by: Vinay Branch M.D. 11/30/2023 9:00 AM Pending Results Patient Have Any Pending Studies at Discharge: No Discharge Instructions Given to Patient (Per Discharging Provider) You have been hospitalized after a fall and found to have a fracture in your lumbar spine. Orthopedic surgery/spine surgery was consulted while you have been in the hospital and we have used medications to help with pain as well as neuropathic pain from the lumbar spine and a brace for comfort. We have consulted pain management and you have elected to pursue an injection to your spine for relief. Pain management is to contact [facility] once you get there to confirm the time of the injection and then will have idea when your coumadin needs to be held. We do not want to hold this at present time in case your injection is further away than they initially reported but hopefully will be in the next week/week and a half. We have changed your coumadin at discharge to 5mg on Friday/Friday/Friday and 7.5mg all other days given elevated level on admission/need for reduction. You can follow up with primary care to discuss any referral to anticoagulation clinic if still having fluctuations. In the meantime, you are to continue the steroids in the form of prednisone and taper. You will take 20mg by mouth for the next two days, then decrease to 10mg for another 2 days. You can continue oxycodone 5-10 mg as needed every 4-6 hours for breakthrough pain and can take tylenol for non severe pain. You will be continued on a bowel regimen as needed while on pain medications. You are to continue topical voltaren gel twice daily and can increase to four times daily as needed as well as lidocaine patch daily. You are to continue gabapentin 300mg by mouth three times daily for nerve pain down your leg. You did have some issues with reflux and have been placed on pepcid twice daily while on steroids and can continue twice daily while completing the taper and then utilize as needed. Continue diet with gravy and can follow up with primary care if any ongoing issues for outpatient barium swallow/further testing but have been tolerating diet without issue. You should have follow up with urology at discharge for voiding trial at [facility] and have been started and continued on flomax in the meantime, but given issues with your back and repeat catheterization we have decided to keep this in for now and have follow up again for voiding trial in the office. 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 Please alert anyone of symptoms of chest pain, shortness of breath, dizziness or feeling like you are going to pass out. Your atorvastatin has been held given your elevated liver enzymes on testing which have almost normalized and would recommend you hold this for another day or two prior to resuming. You should follow up with primary care in the next 7-10 days after discharge. Please return to the emergency department with any worsening/uncontrolled pain, fever/chills, chest pain/shortness of breath, or for any other symptoms concerning for you. It has been a pleasure being a part of the medical team helping to take care of you while you have been in the hospital. Take care! Total Time Total Time Spent Total Time Spent (In Minutes): Time spend day of discharge 40 minutes including direct patient care, medication reconciliation, documentation, review of labs and images, and coordination of care. Supervising Physician Co-Signing Physician Notes During face to face encounter, I obtained a brief physical examination, discussed hospital stay with patient and discharge instructions with patient. I discussed discharge plan of care with PATRICE Edmond. I reviewed above note and agree with it except for the following: Patient had a fall and sustained an L4 Compression fracture. Patient will be discharged on pain control as above. Coding Level of Care Code 08010 INP/OBS DISCH >30 MIN Diagnoses Fall W19.XXXA Closed compression fracture of L4 vertebra S32.040A Chronic obstructive pulmonary disease, unspecified COPD type J44.9 COPD type: unspecified COPD H/O deep venous thrombosis Z86.718 Pure hypercholesterolemia E78.00 Hyperlipidemia type: pure hypercholesterolemia BPH (benign prostatic hyperplasia) N40.0 Aortic stenosis, severe I35.0
[2023-12-02 09:39] LABS: Hematocrit (blood only) 46.6 % (42.0-52.0); Hemoglobin 15.8 g/dl (14.0-18.0); Mean Corpuscular Hemoglobin 31.3 pg (25.0-34.0); Mean Corpuscular Hgb Conc 33.9 g/dL (32.0-36.0); Mean Corpuscular Volume 92.3 fL (80.0-100.0); Mean Platelet Volume 9.1 fL (9.4-12.4); Platelet Count 294 K/uL (130-400); RDW Coefficient of Variation 13.6 % (11.5-14.5); RDW Standard Deviation 46.5 fL (36.4-46.3); Red Blood Count 5.05 M/uL (4.70-6.10); White Blood Count 12.69 K/ul (4.8-10.8)
[2023-12-02 09:58] LABS: Albumin Globulin Ratio 1.4 (0.9-2); Albumin Level 3.4 gm/dl (3.4-5.0); BUN Creatinine Ratio 32.9 (10-20); Bilirubin,Total 0.6 mg/dl (0.2-1.0); Calcium 8.9 mg/dl (8.6-10.3); Creatinine Clr Calc Pharmacy 71.1 ml/min; Est GFR (African American) 96.4 ml/min; Est GFR (Non-African American) 83.2 ml/min; Globulin 2.5 gm/dl (2.5-4.0); Potassium 4.3 mmol/L (3.5-5.1); Total Protein 5.9 gm/dl (6.0-8.3)
[2023-12-02 10:07] LABS: INR 2.3 (0.9-1.1); Prothrombin Time 23.6 Seconds (9.0-12.0)
== END 2023-12-02 12:00 | DRG 552 ==
LOC: ED 07:26 → SUATTDRO 10:46 → 3N 10:46